=== PATIENT | female | born 1950 | race Caucasian/White ===

== ENCOUNTER → 2016-12-17 | Outpatient (CLI) | payer OTHER ==
[2016-12-17 17:40] LABS: MEAN CORPUSCULAR HEMOGLOBIN 27.4 pg (27.0-33.0); MEAN CORPUSCULAR VOLUME 85.7 fl (80.0-96.0); RED CELL DISTRIBUTION WIDTH 16.1 % (11.5-14.5); WHITE BLOOD COUNT 5.9 K/mm3 (4.0-10.0)
[2016-12-17 17:41] LABS: INR 1.13
[2016-12-17 18:16] LABS: ALBUMIN 3.3 GM/DL (3.2-5.2); ALBUMIN/GLOBULIN RATIO 1.14 (1.00-1.93); ALKALINE PHOSPHATASE 117 U/L (45-117); ALT/SGPT 46 U/L (12-78); ANION GAP 7 MEQ/L (8-16); AST/SGOT 59 U/L (15-37); BILIRUBIN,TOTAL 0.5 MG/DL (0.2-1.0); BLOOD UREA NITROGEN 26 MG/DL (7-18); CALCIUM LEVEL 8.9 MG/DL (8.8-10.2); CARBON DIOXIDE LEVEL 29 MEQ/L (21-32); CHLORIDE LEVEL 108 MEQ/L (98-107); CREATININE FOR GFR 0.72 MG/DL (0.55-1.02); GLOMERULAR FILTRATION RATE > 60.0 (>45); GLUCOSE, FASTING 100 MG/DL (80-110); MAGNESIUM LEVEL 1.8 MG/DL (1.8-2.4); PERCENT SATURATION 20.6 % (13.2-37.4); POTASSIUM SERUM 4.4 MEQ/L (3.5-5.1); SODIUM LEVEL 144 MEQ/L (136-145); TOTAL IRON BINDING CAPACITY 423 UG/DL (250-450); TOTAL PROTEIN 6.2 GM/DL (6.4-8.2)
[2016-12-17 18:24] LABS: VITAMIN B12 LEVEL 702 PG/ML (247-911)
== END | disposition home or self-care (01) ==
LOC: M LAB 16:37
PROVIDERS: ATTEND Internal Medicine Gastroenterology
DX: K74.60 Unspecified cirrhosis of liver (principal); R19.7 Diarrhea, unspecified; K21.9 Gastro-esophageal reflux disease without esophagitis

== ENCOUNTER → 2017-04-15 | Outpatient (REF) | payer MEDICARE ==
[2017-04-15 13:56] LABS: INR 1.06
[2017-04-15 18:05] LABS: PERCENT SATURATION 13.5 % (13.2-37.4)
== END ==
LOC: M LAB REF 12:22
PROVIDERS: ATTEND Internal Medicine
DX: D64.9 Anemia, unspecified (principal); K74.60 Unspecified cirrhosis of liver; K75.81 Nonalcoholic steatohepatitis (NASH)

== ENCOUNTER 2017-08-06 16:19 | Inpatient (IN) | payer MEDICARE ==
[~2017-08-06] VITALS: Ht 162.6 cm; Wt 102.5 kg
[2017-08-06] VITALS (15 sets, daily range): BP systolic 123–183; BP diastolic 58–88
[2017-08-06] MEDS ORDERED: LOSA100T36 PO (16:44)
[2017-08-06] MEDS ORDERED: OMEP40CA2 (16:44)
[2017-08-06] MEDS ORDERED: NADO20TA PO (16:44)
[2017-08-06] MEDS ORDERED: ONDANSETRON 4MG/2ML VIAL (J2405) IV ONE (18:00)
[2017-08-06] MEDS ORDERED: MORPHINE 2 MG/ML 1ML SYRINGE IV ONE (18:00)
[2017-08-06 19:22] LABS: BASO % 0.1 % (0.0-1.0); EOS % 0.4 % (0.0-3.0); LARGE UNSTAINED CELL # 0.1 K/mm3 (0.0-0.4); LYMPH # 0.6 K/mm3 (1.5-4.5); LYMPH % 7.8 % (24.0-44.0); MEAN CORPUSCULAR HEMOGLOBIN 26.4 pg (27.0-33.0); MEAN CORPUSCULAR HGB CONC 32.6 g/dl (32.0-36.5); MONO # 0.5 K/mm3 (0.0-0.8); MONO % 6.3 % (0.0-5.0); NEUTROPHILS # 6.7 K/mm3 (1.8-7.7); NEUTROPHILS % 84.4 % (36.0-66.0); WHITE BLOOD COUNT 7.9 K/mm3 (4.0-10.0)
[2017-08-06 19:27] LABS: ANION GAP 6 MEQ/L (8-16); BLOOD UREA NITROGEN 15 MG/DL (7-18); CALCIUM LEVEL 7.3 MG/DL (8.8-10.2); CARBON DIOXIDE LEVEL 31 MEQ/L (21-32); CHLORIDE LEVEL 105 MEQ/L (98-107); GLOMERULAR FILTRATION RATE > 60.0 (>45); GLUCOSE, FASTING 115 MG/DL (80-110); POTASSIUM SERUM 3.7 MEQ/L (3.5-5.1); SODIUM LEVEL 142 MEQ/L (136-145)
[2017-08-06 19:33] LABS: PLATELET COUNT, AUTOMATED 62 k/mm3 (150-450)
[2017-08-06] MEDS ORDERED: ISOVUE-370 76% 100ML VIAL (Q9967) As Ordered ONE (19:35)
--- NOTE | 2017-08-06 20:30 | REPUSA ---
CT angiogram of the chest Clinical statement: Chest pain and shortness of breath. Technique: Multiple axial CT images were obtained from the thoracic inlet through the upper abdomen a fter a bolus administration of nonionic intravenous contrast. Coronal and sagittal reconstructions we re also obtained. No comparison is available. Findings: The pulmonary arteries are well-opacified with contrast, with no intraluminal filling defec ts to suggest embolism. The thoracic aorta is unremarkable. Thyroid gland is within normal limits. Th ere is no thoracic lymphadenopathy. There is a moderate sized right lower lobe pleural effusion, with adjacent compressive atelectasis. There is also a linear infiltrate in the right upper lobe. Limited imaging of the upper abdomen demonstrates several gallstones within a distended gallbladder. No gavino cholecystic inflammatory changes are seen. There are no suspicious osseous lesions. Impression: 1. No evidence of pulmonary embolism. 2. Moderate sized right lower lobe pleural effusion with adjacent compressive atelectasis of the righ t lower lung. Linear infiltrate is seen in the right upper lung as well. 3. Cholelithiasis without evidence of acute cholecystitis.
[2017-08-06] MEDS ORDERED: cefTRIAXone SOD 1 GM in D5W MINI-BAG PLUS 50 ML IV ONE (21:00)
[2017-08-06] MEDS ORDERED: BISACODYL 10 MG SUPP PR PRN (21:00)
[2017-08-06] MEDS ORDERED: NORCO, ANEXSIA 5/325MG TABLET (HYDROcodone/ACETAMINOPHEN) PO PRN (21:00)
[2017-08-06] MEDS ORDERED: PERCOCET 5MG/325MG TAB PO PRN (21:00)
[2017-08-06] MEDS: DOCUSATE SODIUM 100 MG CAP PO SCH (21:00)
[2017-08-06] MEDS ORDERED: KCL 20MEQ IN D5/NS 1000ML 1,000 ML IV SCH (21:00)
[2017-08-06] MEDS ORDERED: ACETAMINOPHEN TAB 650MG DOSE (2X325MG) PO PRN (21:00)
[2017-08-06] MEDS: HEPARIN SOD (PORCINE) 5000 UNITS/ML VIAL SC SCH (21:00)
[2017-08-06] MEDS ORDERED: LEVALBUTEROL 1.25 MG/0.5 ML CONCENTRATE NEB NEB PRN (21:00)
[2017-08-06 21:21] LABS: INR 1.44
[2017-08-06] MEDS ORDERED: VITA500T PO (21:26)
[2017-08-06] MEDS ORDERED: FISH1000 PO (21:26)
[2017-08-06] MEDS ORDERED: VITA100087 PO (21:26)
[2017-08-06] MEDS ORDERED: VITA200015 PO (21:26)
[2017-08-06] MEDS ORDERED: NATU400T PO (21:26)
[2017-08-06] MEDS ORDERED: CINN500C9 PO (21:26)
[2017-08-06] MEDS ORDERED: MIDAZOLAM INJ 2 MG/2 ML VIAL (J2250) As Ordered ONE ×4 (21:31→23:19)
[2017-08-06] MEDS ORDERED: FLUMAZENIL 0.5 MG/5 ML VIAL As Ordered ONE (21:33)
[2017-08-06] MEDS ORDERED: LIDOCAINE 1% MDV 20ML VIAL As Ordered ONE ×3 (21:34→23:18)
[2017-08-06 22:17] LABS: ABG BASE EXCESS 0.1 (-2.0-2.0); ABG HCO3 24.7 MEQ/L (22.0-26.0); ABG PARTIAL PRESSURE CO2 39.8 mmHg (35.0-45.0); ABG PARTIAL PRESSURE O2 76.9 mmHg (75.0-100.0); ABG STANDARD HCO3 24.5 MEQ/L (22.0-26.0); ABG TOTAL CO2 25.9 MEQ/L (23.0-31.0)
[2017-08-06] MEDS ORDERED: KETOROLAC 30 MG/ML VIAL (J1885) As Ordered ONE (22:47)
[2017-08-06] MEDS ORDERED: D5W/0.9% SODIUM CHLORIDE 1,000 ML IV SCH (23:30)
--- NOTE | 2017-08-06 23:40 | REPUSA ---
CT of the chest without contrast Clinical statement: status post tube insertion. Technique: Multiple axial CT images were obtained with 5 mm cuts through the chest without administra tion of contrast. No comparison is available. Findings: There is no thoracic lymphadenopathy. The visualized portions of the thyroid gland is unrem arkable. The chest tube on the right is in place within the right lower lung. There is a large right- sided pleural effusion with extensive compressive atelectasis of the lower right lung. Infiltrates ar e seen in the right upper lung, likely representing atelectasis. The left lung is clear. Limited imag ing of the upper abdomen demonstrates numerous gallstones within the gallbladder. Mesenteric infiltra tive changes are seen in the central abdomen. The liver and spleen are enlarged. There are no suspici ous osseous lesions. Impression: 1. Right-sided chest tube is in place at the right lung base. 2. Large right-sided pleural effusion. Severe compressive atelectasis of much of the right lower lung . Linear infiltrate in the right upper lung also noted, likely also representing atelectasis. 3. Left lung is clear. 4. Cholelithiasis. 5. Mesenteric infiltrative changes within the central abdomen, which could represent adenopathy or in flammation. Clinical correlation is recommended.
[2017-08-07] VITALS (14 sets, daily range): BP systolic 99–134; BP diastolic 51–87
[2017-08-07 00:57] LABS: LDH, BODY FLUID 222 U/L (NOT ESTABLISHED)
[2017-08-07 00:59] LABS: TOTAL PROTEIN, BODY FLUID 1.8 G/DL (NOT ESTABLISHED)
[2017-08-07] MEDS ORDERED: LIDOCAINE 1% MDV 20ML VIAL SC ONE (01:00)
[2017-08-07] MEDS ORDERED: MIDAZOLAM INJ 2 MG/2 ML VIAL (J2250) IV ONE ×4 (01:00→01:20)
[2017-08-07] MEDS: AZITHROMYCIN INJ 500 MG, VIAL MATE ADAPTER 1 EACH in D5W 250 ML IV SCH ×2 (01:14→21:36)
[2017-08-07] MEDS ORDERED: KETOROLAC 30 MG/ML VIAL (J1885) IV ONE (01:15)
[2017-08-07 01:21] LABS: RBC PLEURAL FLUID 79 (<10mm3 cells/uL)
[2017-08-07 01:38] LABS: ALBUMIN 2.5 GM/DL (3.2-5.2); ALKALINE PHOSPHATASE 68 U/L (45-117); ALT/SGPT 26 U/L (12-78); ANION GAP 9 MEQ/L (8-16); AST/SGOT 32 U/L (15-37); BILIRUBIN,TOTAL 1.4 MG/DL (0.2-1.0); BLOOD UREA NITROGEN 18 MG/DL (7-18); CALCIUM LEVEL 7.2 MG/DL (8.8-10.2); CARBON DIOXIDE LEVEL 27 MEQ/L (21-32); CHLORIDE LEVEL 105 MEQ/L (98-107); CHOLESTEROL LEVEL 100 MG/DL (< 200); CREATININE FOR GFR 0.95 MG/DL (0.55-1.02); GLOMERULAR FILTRATION RATE > 60.0 (>45); GLUCOSE, FASTING 203 MG/DL (80-110); PHOSPHORUS LEVEL 3.4 MG/DL (2.5-4.9); POTASSIUM SERUM 3.4 MEQ/L (3.5-5.1); SODIUM LEVEL 141 MEQ/L (136-145); TRIGLYCERIDES LEVEL 65 MG/DL (<150)
[2017-08-07 01:48] LABS: BF DIFF IF INDICATED? YES (NO); TNC PLEURAL FLUID 47509 cells/uL (0-20)
[2017-08-07 01:54] LABS: CC BF DIFF EXAM UNSPUN
[2017-08-07] MEDS ORDERED: NS 1,000 ML IV SCH (02:45)
[2017-08-07] MEDS ORDERED: KCL 10MEQ IN 100ML SWI (KRUN) 10 MEQ in APPROPRIATE DILUENT 1 EA IV ONE ×2 (03:00)
[2017-08-07 03:20] LABS: MEAN CORPUSCULAR HEMOGLOBIN 26.7 pg (27.0-33.0); MEAN CORPUSCULAR HGB CONC 33.1 g/dl (32.0-36.5); MEAN CORPUSCULAR VOLUME 80.8 fl (80.0-96.0); RED CELL DISTRIBUTION WIDTH 15.9 % (11.5-14.5); WHITE BLOOD COUNT 9.2 K/mm3 (4.0-10.0)
[2017-08-07] MEDS: PERCOCET 5MG/325MG TAB PO PRN (03:31)
[2017-08-07 05:38] LABS: BASO % 0.1 % (0.0-1.0); EOS % 0.1 % (0.0-3.0); LARGE UNSTAINED CELL # 0.2 K/mm3 (0.0-0.4); LARGE UNSTAINED CELL % 1.6 % (0.0-4.0); LYMPH # 0.5 K/mm3 (1.5-4.5); LYMPH % 4.8 % (24.0-44.0); MEAN CORPUSCULAR HEMOGLOBIN 25.9 pg (27.0-33.0); MEAN CORPUSCULAR HGB CONC 32.2 g/dl (32.0-36.5); MEAN CORPUSCULAR VOLUME 80.6 fl (80.0-96.0); MONO # 0.6 K/mm3 (0.0-0.8); MONO % 5.9 % (0.0-5.0); NEUTROPHILS # 9.1 K/mm3 (1.8-7.7); NEUTROPHILS % 87.6 % (36.0-66.0); RED CELL DISTRIBUTION WIDTH 15.9 % (11.5-14.5); WHITE BLOOD COUNT 10.4 K/mm3 (4.0-10.0)
[2017-08-07 05:44] LABS: PLATELET COUNT, AUTOMATED 53 k/mm3 (150-450)
[2017-08-07 05:56] LABS: ANION GAP 8 MEQ/L (8-16); BLOOD UREA NITROGEN 21 MG/DL (7-18); CALCIUM LEVEL 7.2 MG/DL (8.8-10.2); CARBON DIOXIDE LEVEL 28 MEQ/L (21-32); CHLORIDE LEVEL 107 MEQ/L (98-107); CREATININE FOR GFR 0.91 MG/DL (0.55-1.02); GLOMERULAR FILTRATION RATE > 60.0 (>45); GLUCOSE, FASTING 127 MG/DL (80-110); POTASSIUM SERUM 3.6 MEQ/L (3.5-5.1); SODIUM LEVEL 143 MEQ/L (136-145)
[2017-08-07] MEDS: KETOROLAC 30 MG/ML VIAL (J1885) IV SCH ×3 (05:57→17:12)
[2017-08-07 06:20] LABS: ABG BASE EXCESS 1.7 (-2.0-2.0); ABG HCO3 26.8 MEQ/L (22.0-26.0); ABG PARTIAL PRESSURE CO2 44.4 mmHg (35.0-45.0); ABG PARTIAL PRESSURE O2 98.4 mmHg (75.0-100.0); ABG TOTAL CO2 28.2 MEQ/L (23.0-31.0); ABG pH (ARTERIAL) 7.399 UNITS (7.350-7.450)
[2017-08-07] MEDS: LEVALBUTEROL 1.25 MG/0.5 ML CONCENTRATE NEB NEB SCH ×2 (07:19→14:01)
[2017-08-07] MEDS: PANTOPRAZOLE 40MG TAB (PROTONIX) PO SCH (08:23)
[2017-08-07] MEDS: DOCUSATE SODIUM 100 MG CAP PO SCH ×2 (08:23→21:37)
[2017-08-07] MEDS: VITAMIN A 10,000 INTERNATIONAL UNITS CAP PO SCH (08:23)
[2017-08-07] MEDS: VITAMIN E 400 INTERNATIONAL UNITS CAP PO SCH (08:23)
[2017-08-07] MEDS: LOSARTAN 50 MG TAB PO SCH (08:24)
[2017-08-07] MEDS: VITAMIN D 1,000 INTERNATIONAL UNITS TABLET PO SCH (08:24)
[2017-08-07] MEDS: ASCORBIC ACID 500 MG TAB PO SCH (08:25)
[2017-08-07] MEDS: MOM 30ML SUSPENSION UDC PO SCH (08:25)
[2017-08-07] MEDS: HEPARIN SOD (PORCINE) 5000 UNITS/ML VIAL SC SCH (08:25)
[2017-08-07] MEDS: NADOLOL 20MG TABLET PO SCH ×2 (08:25→21:37)
--- NOTE | 2017-08-07 09:24 | CR ---
DATE OF CONSULTATION: 08/06/2017 REASON FOR CONSULTATION: The patient is seen at the request of Dr. Lenny Houser for a pleural effusion and right-sided chest pain. HISTORY OF PRESENT ILLNESS: The patient is a 67-year-old white female who at 2:00 this morning suddenly awoke with sharp right-sided chest pain laterally and inferiorly. She describes it as a grabbing pulling pain every time she takes a breath. It hurts for her to take a deep breath. There has been no cough and no sputum production. There has been no fever, chills, or sweats and no night sweats. She has maintained her weight all along. There is no dysphagia. She does not choke with eating or with drinking. The chest pain is quite severe and she is taking shallow rapid breaths in order to ventilate. The chest pain has gotten increasingly worse over the course of the day in her sojourn in the emergency room. I am not sure whether she is intrinsically short of breath or just short of breath secondary to pain. I think it is the latter. She was seen at Urgent Care earlier today and was sent over to the emergency room when an x-ray was taken, which showed her to have an opacity in the right chest. Upon further history taking from her daughters, she evidently fell last June injuring her ribs. Therefore, a rib series was obtained in the ER. PAST MEDICAL HISTORY: Hypertension. Gastroesophageal reflux disease. Diarrhea being treated by Dr. Bonny Candelario in [place]. Denies diabetes are heart disease. Does not have a primary care physician. PAST SURGICAL HISTORY: Repair of quadriceps ruptures in 1999. ALLERGIES: ASPIRIN. MEDICATIONS AT HOME: - losartan 100 mg every day - nadolol 20 mg twice a day - fish oil 1000 mg capsules every day - vitamin A 10,000 units every day - ascorbic acid 500 mg every day - vitamin D 2000 units every day TRAVEL HISTORY: Has been to [place] once approximately 4 years ago. No travel to the [facility] and no foreign travel. EXPOSURES: No exposure to tuberculosis. No birds or cats. She has two dogs. OCCUPATIONAL HISTORY: bulk delivery driver. No asbestos exposure. HABITS: Does not smoke, does not drink and there are no illicit drugs. REVIEW OF SYSTEMS: Constitutional: See HPI. Eyes: Without diplopia, without amaurosis fugax, without prior jaundice. Nose: Without epistaxis. Mouth: Has upper dentures. Respiratory: See HPI. Cardiac: See HPI. Without orthopnea or paroxysmal nocturnal dyspnea, except last night. Denies leg swelling. Has had no prior myocardial infarctions and no tachycardias or palpitations. Gastrointestinal (GI): Without nausea, vomiting, constipation. Does have diarrhea which is now under control being treated by Dr. Bonny Candelario. Without hematemesis, melena, hematochezia or abdominal pain. Genitourinary (): Without dysuria, hematuria or history of renal stones. Lymphatics: Without lumps, bumps in neck, axilla or groin. Hematologic: Without prolonged bleeding times. Neurologic: Without paresthesias, paralysis or prior seizures. Psychiatric: Without pathologic depression, psychoses or anxieties. PHYSICAL EXAMINATION: General: Well-developed obese white female in acute distress from pain and short of breath. Vital signs: Temperature is 99.6 with a pulse of 88 in a sinus rhythm. Respiratory rate of 22, with shallow breaths. Blood pressure is 131/79 and she is 96% saturated on 2 liters nasal cannula. Eyes: Pupils equal, round and reactive to light. Extraocular muscles intact. Sclera anicteric. Nose: Without deformity. Mouth: Shows her mucous membranes to be pink and moist. Lips and commissures are without lesions. There is no thrush. Her upper dentures are in place. Head: Normocephalic. Neck is supple. There is no jugular venous distention, no subcutaneous emphysema. Trachea is midline. No carotid bruits. She has 2+ carotid upstrokes. There is no thyromegaly. No lymphadenopathy. Lungs: Show decreased breath sounds on the right side with E to A egophony. Percussion note is dull at the base of the right chest, although it is difficult to resonate secondary to obesity. Cardiac examination: Without murmurs, clicks, gallops or rubs. I cannot feel her point of maximal impulse (PMI), S1 and S2 are normal. Abdomen: Soft and nontender. Bowel sounds are positive. There is no hepatomegaly. There is no costovertebral angle (CVA) tenderness. Extremities: Show no pretibial edema, no calf tenderness. No differential swelling of the upper extremities. She does have a dark pigmentation on both legs which I thought was secondary to venous stasis disease, but she says she has had cellulitis in the past. Skin: Warm, dry and perfused without cyanosis or mottling including that of the nail beds and the knees. Neurologic exam: Shows II through XII intact. Gross motor and gross sensation intact. Gait is not tested. Psychiatric: Shows her to be awake, alert and oriented times three, with appropriate mood, affect, and conversational. Her white count in the emergency room was 7.9 with a hemoglobin and hematocrit of 11.2 and 34.2, and a platelet count of 62. Differential shows 84% neutrophils, 7% lymphocytes, 6% monocytes. No immature forms, no toxic granulations. Her electrolytes show a sodium of 142, a potassium of 3.7, BUN and creatinine of 15 and 0.70. Calcium is 7.3 with a glucose of 115. In December her albumin was 3.3. She knows she has been thrombocytopenic since 2013. Her chest x-ray today shows an opacity on the right side with a diffuse haze consistent with a pleural effusion. Chest CT shows a large pleural effusion. It is notable that the portable chest x-ray done later this evening and compared with her rib films shows a dramatic increase in her pleural fluid. Chest CT shows compression of the right lower lobe. There is no pulmonary embolism. The CT was done with angiographic protocol. It looks as though the lung is more consolidated then compressed on the CT, although there is a sliver of compression in the right lower lobe. I do not see any other masses on this CT. Adrenals have a normal configuration and she has gallstones in her gallbladder. The gallstones are in the neck of the gallbladder. IMPRESSION: 1. Pleural effusion, probably empyema. 2. Probably community acquired pneumonia. 3. Thrombocytopenia, chronic. 4. Hypertension. 5. Diarrhea, controlled. 6. Hypoalbuminemia. 7. Morbid obesity. PLAN AND DISCUSSION: The first order of treating her will be to relieve her most likely empyema. I will place a chest tube. She is being admitted to the hospitalist service, but I will start her on antibiotics consistent with community acquired pneumonia. She is not making any sputum so we cannot send a sputum culture, but we will certainly culture the pleural fluid. Her thrombocytopenia is chronic. I will check a lactic acid although she does not look septic. It should be noted that her ABG done this evening showed a pH of 7.41, pCO2 of 39, and a pO2 of 76 on 2 liters nasal cannula with a base excess of 0.1. She is not acidotic. It is unclear why she got this pneumonia. She has not been around anybody with a upper respiratory infection (URI). We will follow her chest x-rays every day and I may obtain another CT scan after the fluid is drained. Will send the fluid for the requisite bacteriologies, cytologies, chemistries, and cell counts. I will do a hemoglobin A1c as she is probably high risk for diabetes.
--- NOTE | 2017-08-07 09:38 | HPEPDOC ---
General Date of Admission Aug 06, 2017 at 21:00 Primary Care Physician: MADELIN KILPATRICK DO Chief Complaint The patient is a 67-year-old female admitted with a reason for visit of Pleural Effusion. Source: Patient, Family Exam Limitations: No limitations Timing/Duration: 1-3 hours Severity: Severe Associated Symptoms: Chest Pain, Shortness of breath History of Present Illness 67 yo female from [place] presents for several hour history of severe shortness of breath. Patient also admits to severe orthopnea, with 4/10 right sided chest pain. Patient notes she had a mechanical fall, tripping over her dog, early in June. She denied any head trauma, but fell onto her right side, stating she had 'the wind knocked out of me'. Denies any other medical complaints. Denies any past medical history, she follows with her PCP twice a year. Home Medications Scheduled Alpha Tocopheryl Acid Succinat (Vitamin E) 400 Unit Tab, 400 UNIT PO DAILY, ( Reported) Ascorbic Acid (Vitamin C) 500 Mg Tab, 500 MG PO DAILY, (Reported) Cholecalciferol (Vitamin D) 2,000 Unit Tab, 2,000 UNIT PO DAILY, (Reported) Cinnamon Bark (Cinnamon) 500 Mg Cap, 500 MG PO DAILY, (Reported) Fish Oil (Fish Oil) 1,000 Mg Cap, 1,000 MG PO DAILY, (Reported) Losartan Potassium (Losartan Potassium) 100 Mg Tab, 100 MG PO DAILY, (Reported) Nadolol (Nadolol) 20 Mg Tab, 20 MG PO BID, (Reported) Vitamin A (Vitamin A) 10,000 Unit Tab, 10,000 UNIT PO DAILY, (Reported) Allergies Coded Allergies: Aspirin (Verified Allergy, Unknown, 08/07/17) PT TOLERATES TORADOL. Past Medical History Medical History Patient denies any medical history. By medical records, appears she does have hypertension. States she was prescribed omeprazole, but denies any symptoms of GERD. Social History * Smoker: Denies Alcohol: Denies Drugs: denies Recent Travel/Sick Contacts: Denies: Recent travel, Recent sick contacts Review of Symptoms Constitutional: Denies: Chills, Fever, Malaise, Night Sweats, Weakness, Fatigue , Weight Loss, Lethargy, Other Eyes: Denies: Pain, Vision change, Conjunctivae inflammation, Eyelid inflammation, Redness, Other ENT: Denies: Head Aches, Ear Pain, Dysphagia, Sinus Congestion, Post Nasal Drip , Sore Throat, Epistaxis, Other Symptoms Skin: Denies: Rash, Lesions, Jaundice, Bruising, Itching, Dry, Breakdown, Nail Changes, Other Pulmonary: Reports: Dyspnea, Cough Cardiovascular: Reports: Chest Pain (right sided chest pain) Gastrointestinal: Denies: Nausea, Vomiting, Abdominal Pain, Diarrhea, Constipation, Melena, Hematochezia, Other Symptoms Genitourinary: Denies: Dysuria, Frequency, Incontinence, Hematuria, Retention, Other Symptoms Hematologic: Denies: Bruising, Bleeding Excessively, Petecchia, Purpura, Enlarged Lymph Nodes, Other Hematologic Endocrine: Denies: Polydipsia, Polyphagia, Polyuria, Heat Intolerance, Cold Intolerance, Other Endocrine Sx Neurological: Denies: Weakness, Numbness, Incoordination, Change in speech, Confusion, Seizures, Other Symptoms Physical Examination General Exam: Positive: Alert, Cooperative, No Acute Distress Eye Exam: Positive: PERRLA, Conjunctiva & lids normal, EOMI, Negative: Sclera icteric ENT Exam: Positive: Atraumatic Neck Exam: Positive: Supple Chest Exam: Positive: Diminished (Significantly diminished right breath sounds. ), Other (right sided chest tube in place, draining serosanguinous fluid) Heart Exam: Positive: Rate Normal, Regular Rhythm, Normal S1, Normal S2 Telemetry: Positive: No significant arrhythmia Abdomen Exam: Positive: Normal bowel sounds, Soft, Other (obese), Negative: Tenderness Neuro Exam: Positive: Normal Speech Psych Exam: Positive: Mental status NL, Oriented x 3, Negative: Anxiety Vital Signs Vital Signs Date Time Temp Pulse Resp B/P (MAP) Pulse Ox O2 Delivery O2 Flow Rate FiO2 08/07/17 08:25 72 08/07/17 08:24 125/68 08/07/17 08:00 97.6 17 96 Nasal Cannula 2.0 Laboratory Data Labs 24H Laboratory Tests 2 08/06/17 18:45: White Blood Count 7.9, Red Blood Count 4.22, Hemoglobin 11.2L, Hematocrit 34.2L , Mean Corpuscular Volume 81.0, Mean Corpuscular Hemoglobin 26.4L, Mean Corpuscular Hemoglobin Concent 32.6, Red Cell Distribution Width 16.0H, Platelet Count 62L, Neutrophils (%) (Auto) 84.4H, Lymphocytes (%) (Auto) 7.8L, Monocytes (%) (Auto) 6.3H, Eosinophils (%) (Auto) 0.4, Basophils (%) (Auto) 0.1 , Neutrophils # (Auto) 6.7, Lymphocytes # (Auto) 0.6L, Monocytes # (Auto) 0.5, Eosinophils # (Auto) 0.0, Basophils # (Auto) 0.0, Large Unclassified Cells % 1.0 , Large Unclassified Cells # 0.1, Prothrombin Time 17.9H, Prothromb Time International Ratio 1.44, Activated Partial Thromboplast Time 32.7, Anion Gap 6L , Glomerular Filtration Rate > 60.0, Blood Urea Nitrogen 15, Creatinine 0.70, Sodium Level 142, Potassium Level 3.7, Chloride Level 105, Carbon Dioxide Level 31, Calcium Level 7.3L, Lactate Dehydrogenase 197 08/06/17 22:10: Blood Gas Bicarbonate Standard 24.5, Arterial Blood pH 7.410, Arterial Blood Partial Pressure CO2 39.8, Arterial Blood Partial Pressure O2 76.9, Arterial Blood Total CO2 25.9, Arterial Blood HCO3 24.7, Arterial Blood Base Excess 0.1, Arterial Blood Oxygen Saturation 95.4 08/06/17 23:49: Body Fluid pH 7.486, Body Fluid pH Source PLEURAL, Body Fluid Neutrophils 95, Body Fluid Lymphocytes 4, Body Fluid Monocytes/Macrophages 1, Body Fluid Glucose Source PLEURAL, Body Fluid Glucose 131, Body Fluid Protein Source PLEURAL, Body Fluid Total Protein 1.8, Body Fluid Albumin Source PLEURAL, Body Fluid Albumin 1.1, Body Fluid LDH Source PLEURAL, Body Fluid Lactate Dehydrogenase 222, Body Fluid Amylase Source PLEURAL, Body Fluid Amylase 41, Body Fluid Cholesterol < 50, Body Fluid Cholesterol Source PLEURAL, Body Fluid Triglyceride Source PLEURAL, Body Fluid Triglycerides 14, Pleural Fluid Source PLEURAL, Pleural Fluid Color RED, Pleural Fluid Appearance CLOUDY, Pleural Fluid RBC (Auto) 79, Pleural Fluid Total Nucleated Cells [id number] 08/07/17 00:45: Anion Gap 9, Glomerular Filtration Rate > 60.0, Blood Urea Nitrogen 18, Creatinine 0.95, Sodium Level 141, Potassium Level 3.4L, Chloride Level 105, Carbon Dioxide Level 27, Calcium Level 7.2L, Lactate Dehydrogenase 175, Estimated Mean Plasma Glucose 94, Hemoglobin A1c 4.9, Lactic Acid Level 2.8*H, Phosphorus Level 3.4, Aspartate Amino Transf (AST/SGOT) 32, Alanine Aminotransferase (ALT/SGPT) 26, Total Creatine Kinase 56, Alkaline Phosphatase 68, Total Bilirubin 1.4H, Triglycerides Level 65, Cholesterol Level 100, Total Protein 5.0L, Albumin 2.5L, Albumin/Globulin Ratio 1.00 08/07/17 05:14: White Blood Count 10.4H, Red Blood Count 3.56L, Hemoglobin 9.2L, Hematocrit 28.7L, Mean Corpuscular Volume 80.6, Mean Corpuscular Hemoglobin 25.9L, Mean Corpuscular Hemoglobin Concent 32.2, Red Cell Distribution Width 15.9H, Platelet Count 53L, Neutrophils (%) (Auto) 87.6H, Lymphocytes (%) (Auto) 4.8L, Monocytes (%) (Auto) 5.9H, Eosinophils (%) (Auto) 0.1, Basophils (%) (Auto) 0.1 , Neutrophils # (Auto) 9.1H, Lymphocytes # (Auto) 0.5L, Monocytes # (Auto) 0.6, Eosinophils # (Auto) 0.0, Basophils # (Auto) 0.0, Large Unclassified Cells % 1.6 , Large Unclassified Cells # 0.2, Anion Gap 8, Glomerular Filtration Rate > 60.0 , Lactic Acid Followup at 4 Hours 1.6, Blood Urea Nitrogen 21H, Creatinine 0.91 , Sodium Level 143, Potassium Level 3.6, Chloride Level 107, Carbon Dioxide Level 28, Calcium Level 7.2L 08/07/17 06:10: Blood Gas Bicarbonate Standard 26.0, Arterial Blood pH 7.399, Arterial Blood Partial Pressure CO2 44.4, Arterial Blood Partial Pressure O2 98.4, Arterial Blood Total CO2 28.2, Arterial Blood HCO3 26.8H, Arterial Blood Base Excess 1.7 , Arterial Blood Oxygen Saturation 97.5 CBC/BMP Laboratory Tests 08/06/17 18:45 Red Blood Count 4.22, Mean Corpuscular Volume 81.0, Mean Corpuscular Hemoglobin 26.4 L, Mean Corpuscular Hemoglobin Concent 32.6, Red Cell Distribution Width 16.0 H, Neutrophils (%) (Auto) 84.4 H, Lymphocytes (%) (Auto) 7.8 L, Monocytes ( %) (Auto) 6.3 H, Eosinophils (%) (Auto) 0.4, Basophils (%) (Auto) 0.1, Neutrophils # (Auto) 6.7, Lymphocytes # (Auto) 0.6 L, Monocytes # (Auto) 0.5, Eosinophils # (Auto) 0.0, Basophils # (Auto) 0.0, Calcium Level 7.3 L 08/07/17 00:45 Calcium Level 7.2 L, Phosphorus Level 3.4, Aspartate Amino Transf (AST/SGOT) 32 , Alanine Aminotransferase (ALT/SGPT) 26, Lactate Dehydrogenase 175, Total Creatine Kinase 56, Alkaline Phosphatase 68, Total Bilirubin 1.4 H, Triglycerides Level 65, Cholesterol Level 100, Total Protein 5.0 L, Albumin 2.5 L 08/07/17 03:00 Red Blood Count 3.46 L, Mean Corpuscular Volume 80.8, Mean Corpuscular Hemoglobin 26.7 L, Mean Corpuscular Hemoglobin Concent 33.1, Red Cell Distribution Width 15.9 H 08/07/17 05:14 Red Blood Count 3.56 L, Mean Corpuscular Volume 80.6, Mean Corpuscular Hemoglobin 25.9 L, Mean Corpuscular Hemoglobin Concent 32.2, Red Cell Distribution Width 15.9 H, Neutrophils (%) (Auto) 87.6 H, Lymphocytes (%) (Auto ) 4.8 L, Monocytes (%) (Auto) 5.9 H, Eosinophils (%) (Auto) 0.1, Basophils (%) ( Auto) 0.1, Neutrophils # (Auto) 9.1 H, Lymphocytes # (Auto) 0.5 L, Monocytes # ( Auto) 0.6, Eosinophils # (Auto) 0.0, Basophils # (Auto) 0.0, Calcium Level 7.2 L Microbiology Microbiology 08/06/17 Acid Fast Stain, Received Pending 08/06/17 Mycobacterial Culture, Received Pending 08/06/17 Fungal Smear, Received Pending 08/06/17 Fungal Culture, Received Pending 08/06/17 Gram Stain - Final, Resulted 08/06/17 Anaerobic Culture, Resulted Pending 08/06/17 Body Fluid Culture, Received Pending Problems (1) Pleural effusion Status: Acute Response to Treatment: Improving Discussed With: Commodities Trader, Patient Problem Specific Plan: Consult Specialist, Monitor Clinically Problem Text: Appears to be secondary to pneumonia possibly complicated with her recent trauma. Chest tube in place. Pleural fluid analysis appears to be transudative, with high total nucleated cells. Cultures pending. Patient's symptoms of SOB significantly improved. Continue to follow as CTS, assistance greatly appreciated. Incentive spirometry at bedside. (2) Thrombocytopenia Status: Acute Response to Treatment: Progressing Discussed With: Patient Problem Specific Plan: Monitor Clinically, Repeat Labs, Repeat Tests Problem Text: Unclear etiology, patient unaware if this is chronic issue. Reviewing records, appears this is a chronic issue. Peripheral smear pending. Avoid heparin products. Discuss further with CTS regarding utility of platelet transfusion given hemothorax/pleural effusion. (3) Pneumonia Status: Acute Response to Treatment: Improving Discussed With: Commodities Trader, Patient Problem Specific Plan: Monitor Clinically, Repeat Labs Problem Text: Continue with cef/azithro for CAP. Pleural fluid cultures pending. MRSA screen. Incentive spirometry. (4) HTN (hypertension) Status: Chronic Response to Treatment: Stable Problem Specific Plan: Monitor Clinically Plan / VTE VTE Prophylaxis Ordered?: Yes (mechanical) Plan Plan Continue IV antibiotics for CAP. Pleural fluid cultures pending. Continue chest tube, follow as per CTS, assistance appreciated. Some mesenteric infiltrative changes noted on central abdomen from CT chest, will pursue further imaging as patient improves. IVF: Continue Diet: Continue Current Activity: Continue Current Diagnostics: Repeat Labs in AM Anticipated Discharge: Home CHRISTEN ALDRIDGE MD Aug 07, 2017 09:38
[2017-08-07 09:48] LABS: REASON FOR REVIEW PLATELET MORPHOLOGY
--- NOTE | 2017-08-07 11:29 | REP ---
CHEST, SINGLE VIEW: Single AP view of the chest is performed. There is a large right pleural effusion with associated right lung atelectasis/infiltrate. The left lung is clear. Cardiac silhouette is prominent. There is right chest tube overlying the right hemidiaphragm. Signed by Larry Moyer MD 08/07/2017 07:31 P
--- NOTE | 2017-08-07 11:41 | REP ---
PORTABLE CHEST: AP portable view of the chest is performed and compared to prior study of the same day. There is placement of a chest tube which overlies the right hemithorax. The previously noted chest tube is no longer visualized. Right pleural effusion has significantly improved. There is mild right base parenchymal opacity. There is mild elevation of the right hemidiaphragm. Left lung is clear. Cardiomediastinal silhouette is stable. There is no pneumothorax. Signed by Larry Moyer MD 08/07/2017 07:31 P
--- NOTE | 2017-08-07 11:42 | REP ---
TWO VIEW CHEST: Two views of the chest are performed and compared to prior study of 08/06/2017. There is a right chest tube overlying the right hemithorax. There is a tiny amount of fluid in the minor fissure. There is mild bibasilar parenchymal opacity. There is a tiny right apical pneumothorax. A small amount of free air is seen under the right hemidiaphragm. Dr. Dewitt is aware of this finding. Signed by Larry Moyer MD 08/07/2017 07:31 P
[2017-08-07] MEDS: SLF 3 ML SYR IV SCH ×2 (13:02→21:37)
--- NOTE | 2017-08-07 13:14 | IPN ---
DATE: 08/07/2017 Ms. Villalobos feels much better today. Her pain is almost completely resolved before she had her empyema drained. She is sitting up comfortably in a chair on 2 liters nasal cannula. She does not remember any of the events last night. Her vital signs show a maximum temperature (t-max) of 98.0 with a heart rate that ranges between 71 and 65 in a sinus rhythm, respiratory rate of 14 to 17 without the use of accessory muscles, who is 95 to 96% saturated on 2 liters nasal cannula and just now on room air at 95%. Her blood pressure is ranging between 112/56 to 125/68. Intake and output over the past 24 hours has been recorded as 410 in and 1150 out for a negativity of 750 mL. She has put out 1150 mL from the chest tube, that is excluding the large amount that was lost in the bed last night. She weighs 108 kg today compared to 108.4 kg on admission. PHYSICAL EXAMINATION: LUNGS: She has equal breath sounds on either side. She has inspiratory rales and coarse rhonchi on the right side. This occurs mainly during all of expiration. CARDIAC EXAM: She has a 2/6 systolic ejection murmur at the left upper sternal border. I cannot feel her point of maximum impulse (PMI). S1, S2 are normal. ABDOMEN: Soft, nontender. Bowel sounds positive. There is no hepatomegaly. No costovertebral angle tenderness that I can appreciate her through her morbid obesity. Of note, her right upper quadrant is nontender. EXTREMITIES: Show trace to 1+ pretibial edema. No calf tenderness. No differential swelling of the upper extremities. SKIN: Warm, dry and perfused without cyanosis or mottling, including that of the nail beds and knees. NECK: Supple. There is no jugular venous distention. No subcutaneous emphysema. Trachea is midline. MOUTH: Shows her mucous membranes to be pink and moist. Lips and commissures without lesions. There is no thrush. EYES: Show her pupils to be equal and reactive. Extraocular motion intact. Sclerae anicteric. NEUROLOGIC: Shows II through XII intact with gross motor and gross sensation intact. Gait is not tested. PSYCHIATRIC: Shows her to be awake and alert, oriented times three with appropriate mood and affect and conversational. Her white count today is 10.4 with a hemoglobin and hematocrit of 9.2 and 28.7, stable from earlier this morning of 9.2 and 28.0. Her admission hemoglobin and hematocrit was 11.2 and 34.2. Platelet count is 53, which is consistent with her thrombocytopenia for a number of years. Differential shows 87% neutrophils, 4% lymphocytes, 5% monocytes. There are no immature forms. No toxic granulations. Electrolytes today were normal with a BUN and creatinine of 21 and 0.91, glucose 27, calcium 7.2. AST and ALT are normal with a corresponding albumin of 2.5. Blood gases this morning show a pH of 7.39, PCO2 of 44, PO2 of 98 on 2 liters nasal cannula with a base excess of 1.7. Her pleural fluid has been returned with 47,000 nucleated cells, 95% of which are neutrophils. Glucose in the fluid however is 131 with a pH of 7.48. LDH is 222 with a corresponding serum LDH of 175, making this neutrophilic and exudative, consistent with an empyema. Her chest x-ray today showed her lung fully expanded to the chest wall. I was suspicious yesterday that the first chest tube was below the diaphragm, even though radiology did not think so; however, I do see a little bit of air under the diaphragm. The lateral film shows posterior consolidative infiltrative process on the right side. Both costophrenic angles are sharp. IMPRESSION: 1. Right sided empyema. 2. Community acquired pneumonia. 3. Thrombocytopenia, chronic, cause unknown. 4. Hypertension. 5. Diarrhea, controlled. 6. Hypoalbuminemia. 7. Morbid obesity. PLAN AND DISCUSSION: I have already spoke with Dr. Longoria of the hospitalist service. We will continue to treat her community acquired pneumonia on Rocephin and azithromycin. We will await cultures from the pleural fluid. The Gram-stain on the pleural fluid does not show any organisms but many white cells. I will continue her chest tube drainage until it decreases. I am a bit worried about her thrombocytopenia and potential bleeding from the chest tube. We will continue to monitor her CBC and chest x-ray.
--- NOTE | 2017-08-07 15:17 | RO ---
DATE OF PROCEDURE: 08/07/2017 PREPROCEDURE DIAGNOSIS: POSTPROCEDURE DIAGNOSIS: PROCEDURE: SURGEON: Fredrick Dewitt MD CONCRETE CURER: ANESTHESIA: DESCRIPTION OF PROCEDURE: Please see the prior procedure note. The patient's moderate sedation was again continued to a total of 8 mg of Versed. She was again prepped and draped in the usual sterile fashion and an incision was made above the previous incision. A tunnel was again created into the chest with some difficulty considering her morbid obesity. Finally, a #24 chest tube was placed with production of cloudy, turbid fluid. There was a lot of spillage of fluid on to the bed, but eventually 600 mL was eluted from the chest into a Marley bag. It was sent for requisite cultures, bacteriology, hematology, cytology, and chemistries. The patient tolerated the procedure well and chest x-ray is pending. The prior chest tube was removed. [facility]
--- NOTE | 2017-08-07 15:21 | RO ---
DATE OF PROCEDURE: 08/06/2017 PREPROCEDURE DIAGNOSIS: Parapneumonic effusion, empyema, right side. POSTPROCEDURE DIAGNOSIS: Parapneumonic effusion, empyema, right side. PROCEDURE: Insertion of right lateral chest tube. SURGEON: Dr. Fredrick Dewitt YOUTH AGENT: ANESTHESIA: DESCRIPTION OF PROCEDURE: Under satisfactory moderate sedation achieved with 4 mg of Versed, the patient was prepped and draped in the usual sterile fashion. Incision was made and a tunnel was created into the chest. I obtained cloudy, opaque fluid. A #24 chest tube was attempted to be placed and met resistance. After numerous manipulations, a #20 chest tube was placed, but there was no return of fluid. There was blood within the tube. I, therefore, secured the tube to the chest wall and undertook a CT scan. After returning from CT scan, it was clear that the tube was not in the correct position. While x-ray read it as being in the chest, I have a sinking feeling that it was below the diaphragm, and I, therefore, undertook yet another chest tube placement. It will be dictated in a separate note.
[2017-08-07] MEDS: cefTRIAXone SOD 2 GM in D5W MINI-BAG PLUS 50 ML IV SCH (21:36)
[2017-08-08] VITALS: BP 128/63
[2017-08-08] MEDS: LEVALBUTEROL 1.25 MG/0.5 ML CONCENTRATE NEB NEB SCH ×5 (02:00→20:36)
[2017-08-08 04:00] VITALS: BP 132/61
[2017-08-08] MEDS: KETOROLAC 30 MG/ML VIAL (J1885) IV SCH ×5 (05:47→23:04)
[2017-08-08] MEDS: SLF 3 ML SYR IV SCH ×3 (05:49→21:46)
[2017-08-08 05:58] LABS: WHITE BLOOD COUNT 11.2 K/mm3 (4.0-10.0)
[2017-08-08 05:59] LABS: BASO % 0.2 % (0.0-1.0); EOS % 2.5 % (0.0-3.0); LYMPH # 0.9 K/mm3 (1.5-4.5); LYMPH % 7.8 % (24.0-44.0); MEAN CORPUSCULAR HEMOGLOBIN 25.1 pg (27.0-33.0); MEAN CORPUSCULAR VOLUME 80.8 fl (80.0-96.0); MONO % 5.9 % (0.0-5.0); NEUTROPHILS # 9.1 K/mm3 (1.8-7.7); NEUTROPHILS % 81.6 % (36.0-66.0); PLATELET COUNT, AUTOMATED 57 k/mm3 (150-450); RED CELL DISTRIBUTION WIDTH 16.2 % (11.5-14.5)
[2017-08-08 06:00] LABS: EOS # 0.3 K/mm3 (0.0-0.50); LARGE UNSTAINED CELL # 0.2 K/mm3 (0.0-0.4); MONO # 0.7 K/mm3 (0.0-0.8)
[2017-08-08 06:06] LABS: ANION GAP 8 MEQ/L (8-16); CALCIUM LEVEL 6.9 MG/DL (8.8-10.2); CARBON DIOXIDE LEVEL 29 MEQ/L (21-32); CHLORIDE LEVEL 106 MEQ/L (98-107); CREATININE FOR GFR 0.91 MG/DL (0.55-1.02); GLOMERULAR FILTRATION RATE > 60.0 (>45); GLUCOSE, FASTING 98 MG/DL (80-110); POTASSIUM SERUM 3.6 MEQ/L (3.5-5.1); SODIUM LEVEL 143 MEQ/L (136-145)
[2017-08-08 06:30] LABS: BLOOD UREA NITROGEN 33 MG/DL (7-18)
--- NOTE | 2017-08-08 07:58 | IPNPDOC ---
Subjective Date Seen The patient was seen on 08/08/17. Subjective Chief Complaint/HPI The patient is a 67-year-old female admitted with a reason for visit of Pleural Effusion. General: Denies: ROS Unobtainable, Chills, Night Sweats, Fatigue, Malaise, Normal Appetite (Decreased appetite), Other Symptoms Constitutional: Denies: Chills, Fever, Malaise, Night Sweats, Weakness, Fatigue , Weight Loss, Lethargy, Other Eyes: Denies: Pain, Vision change, Conjunctivae inflammation, Eyelid inflammation, Redness, Other ENT: Denies: Head Aches, Ear Pain, Dysphagia, Sinus Congestion, Post Nasal Drip , Sore Throat, Epistaxis, Other Symptoms Skin: Denies: Rash, Lesions, Jaundice, Bruising, Itching, Dry, Breakdown, Nail Changes, Other Pulmonary: Reports: Dyspnea (Developed some shortness of breath overnight), Pleuritic Chest Pain (Some chest pain at site of chest tube.), Denies: Cough, Other Symptoms Cardiovascular: Denies: Chest Pain, Palpitations, Orthopnea, Paroxysmal Noc. Dyspnea, Edema, Lt Headedness, Other Symptoms Gastrointestinal: Denies: Nausea, Vomiting, Abdominal Pain, Diarrhea, Constipation, Melena, Hematochezia, Other Symptoms Genitourinary: Denies: Dysuria, Frequency, Incontinence, Hematuria, Retention, Other Symptoms Hematologic: Denies: Bruising, Bleeding Excessively, Petecchia, Purpura, Enlarged Lymph Nodes, Other Hematologic Endocrine: Denies: Polydipsia, Polyphagia, Polyuria, Heat Intolerance, Cold Intolerance, Other Endocrine Sx Objective Physical Examination General Exam: Positive: Alert, Cooperative, No Acute Distress Eye Exam: Positive: PERRLA, Conjunctiva & lids normal, EOMI, Negative: Sclera icteric ENT Exam: Positive: Atraumatic Neck Exam: Positive: Supple Chest Exam: Positive: Normal air movement, Diminished, Other (right sided chest tube in place, draining serosanguinous fluid) Heart Exam: Positive: Rate Normal, Regular Rhythm, Normal S1, Normal S2 Telemetry: Positive: No significant arrhythmia, Bradycardia Abdomen Exam: Positive: Normal bowel sounds, Soft, Other (obese), Negative: Tenderness Neuro Exam: Positive: Normal Speech Psych Exam: Positive: Mental status NL, Oriented x 3, Negative: Anxiety Assessment /Plan Problems (1) Pleural effusion Status: Acute Response to Treatment: Improving Discussed With: Combination Window Installer, Patient Problem Specific Plan: Consult Specialist, Monitor Clinically Problem Text: Appears to be secondary to pneumonia possibly complicated with her recent trauma. Chest tube in place. Pleural fluid analysis appears to be transudative, with high total nucleated cells. Cultures pending. Patient's symptoms of SOB significantly improved. Continue to follow as per CTS, assistance greatly appreciated. Incentive spirometry at bedside. (2) Thrombocytopenia Status: Chronic Response to Treatment: Progressing Discussed With: Patient Problem Specific Plan: Monitor Clinically, Repeat Labs, Repeat Tests Problem Text: Unclear etiology, patient unaware if this is chronic issue. Reviewing records, appears this is a chronic issue. Peripheral smear pending. Avoid heparin products. Discuss further with CTS regarding utility of platelet transfusion given hemothorax/pleural effusion. (3) Pneumonia Status: Acute Response to Treatment: Improving Discussed With: Combination Window Installer, Patient Problem Specific Plan: Monitor Clinically, Repeat Labs Problem Text: Continue with cef/azithro for CAP. WBC slightly increased - will continue to follow. Pleural fluid cultures pending. MRSA screen pending. Incentive spirometry. (4) HTN (hypertension) Status: Chronic Response to Treatment: Stable Problem Specific Plan: Monitor Clinically Plan/VTE VTE Prophylaxis Ordered?: Yes (mechanical) Plan IVF: Discontinue Diet: Continue Current Activity: Continue Current Respiratory: Wean Oxygen Diagnostics: Repeat Labs in AM, Obtain Cultures Anticipated Discharge: Home Wean off O2. Continue IV antibiotics pending pleural fluid cultures. Continue chest tube as per CTS. Monitor thrombocytopenia, peripheral smear pending. Will obtain EDTA free sample today. VS, I&O, 24H, Fishbone Vital Signs/I&O Vital Signs Date Time Temp Pulse Resp B/P (MAP) Pulse Ox O2 Delivery O2 Flow Rate FiO2 08/08/17 04:00 Room Air 08/08/17 04:00 98.8 71 18 132/61 (84) 94 08/07/17 08:00 2.0 Laboratory Data 24H LABS Laboratory Tests 2 08/08/17 05:11: White Blood Count 11.2H, Red Blood Count 3.58L, Hemoglobin 9.0L, Hematocrit 28.9L, Mean Corpuscular Volume 80.8, Mean Corpuscular Hemoglobin 25.1L, Mean Corpuscular Hemoglobin Concent 31.0L, Red Cell Distribution Width 16.2H, Platelet Count 57L, Neutrophils (%) (Auto) 81.6H, Lymphocytes (%) (Auto) 7.8L, Monocytes (%) (Auto) 5.9H, Eosinophils (%) (Auto) 2.5, Basophils (%) (Auto) 0.2 , Neutrophils # (Auto) 9.1H, Lymphocytes # (Auto) 0.9L, Monocytes # (Auto) 0.7, Eosinophils # (Auto) 0.3, Basophils # (Auto) 0.0, Large Unclassified Cells % 2.0 , Large Unclassified Cells # 0.2, Anion Gap 8, Glomerular Filtration Rate > 60.0 , Blood Urea Nitrogen 33#H, Creatinine 0.91, Sodium Level 143, Potassium Level 3.6, Chloride Level 106, Carbon Dioxide Level 29, Calcium Level 6.9L CBC/BMP Laboratory Tests 08/08/17 05:11 Red Blood Count 3.58 L, Mean Corpuscular Volume 80.8, Mean Corpuscular Hemoglobin 25.1 L, Mean Corpuscular Hemoglobin Concent 31.0 L, Red Cell Distribution Width 16.2 H, Neutrophils (%) (Auto) 81.6 H, Lymphocytes (%) (Auto ) 7.8 L, Monocytes (%) (Auto) 5.9 H, Eosinophils (%) (Auto) 2.5, Basophils (%) ( Auto) 0.2, Neutrophils # (Auto) 9.1 H, Lymphocytes # (Auto) 0.9 L, Monocytes # ( Auto) 0.7, Eosinophils # (Auto) 0.3, Basophils # (Auto) 0.0, Calcium Level 6.9 L Microbiology Microbiology 08/06/17 Acid Fast Stain, Received Pending 08/06/17 Mycobacterial Culture, Received Pending 08/06/17 Fungal Smear, Received Pending 08/06/17 Fungal Culture, Received Pending 08/06/17 Gram Stain - Final, Resulted 08/06/17 Anaerobic Culture, Resulted Pending 08/06/17 Body Fluid Culture, Received Pending CHRISTEN ALDRIDGE MD Aug 08, 2017 07:57
[2017-08-08 08:00] VITALS: BP 131/57
[2017-08-08 08:48] LABS: PLTBLUE- EDTA FREE MACHINE 61 k/mm3 (172-450)
[2017-08-08 08:49] LABS: PLTBLUE- EDTA FREE CALC 67 K/mm3 (172-450)
[2017-08-08] MEDS: DOCUSATE SODIUM 100 MG CAP PO SCH ×2 (09:00→21:43)
[2017-08-08] MEDS: MOM 30ML SUSPENSION UDC PO SCH (09:00)
[2017-08-08] MEDS: NADOLOL 20MG TABLET PO SCH ×2 (09:04→20:51)
[2017-08-08] MEDS: PANTOPRAZOLE 40MG TAB (PROTONIX) PO SCH (09:04)
[2017-08-08] MEDS: VITAMIN E 400 INTERNATIONAL UNITS CAP PO SCH (09:04)
[2017-08-08] MEDS: ASCORBIC ACID 500 MG TAB PO SCH (09:04)
[2017-08-08] MEDS: LOSARTAN 50 MG TAB PO SCH (09:04)
[2017-08-08] MEDS: VITAMIN D 1,000 INTERNATIONAL UNITS TABLET PO SCH (09:04)
[2017-08-08] MEDS: VITAMIN A 10,000 INTERNATIONAL UNITS CAP PO SCH (09:04)
[2017-08-08] MEDS: CALCIUM/VITAMIN D 500 MG TAB PO SCH ×2 (11:47→21:43)
[2017-08-08 12:00] VITALS: BP 134/56
--- NOTE | 2017-08-08 13:22 | REP ---
CHEST, TWO VIEWS: Two views of the chest were performed and compared to prior study of 08/07/2017. Right chest tube remains in place. Tiny right apical pneumothorax is stable. There is again a tiny amount of fluid in the right minor fissure with some mild bibasilar atelectatic change. The cardiomediastinal silhouette is unchanged. Density in the posterior costophrenic sulcus is unchanged. IMPRESSION: Stable exam. Signed by Larry Moyer MD 08/08/2017 07:14 P
--- NOTE | 2017-08-08 13:32 | IPN ---
DATE: 08/08/2017 Ms. Shaikhs pain is being well controlled and much better than it was when she was admitted. She is breathing well and not complaining of shortness of breath. Her vital signs show a maximum temperature (t-max) of 98.8 with a heart rate that ranges between 74 and 60 in a sinus rhythm, respiratory rate of 17 to 19 without the use of accessory muscles, who is 94 to 97% saturated on room air. Her blood pressure is ranging between 133/87 to 128/63. Her intake and output over the past 24 hours has been recorded as 1745 in and 1640 out for a positivity of 100 mL. She has put out 1340 mL from the chest tube over 24 hours. In the last 12 hours, she has put out 175 mL. She weighs 108.8 kg today compared to 108 kg yesterday. She has only put out 300 mL in urine and has taken in 1345 mL in oral intake. PHYSICAL EXAMINATION: LUNGS: I hear coarse rales and rhonchi on top of finer rales. Inspiration and expiration in her right lower hemithorax. Percussion note is full to the diaphragm as far as I can tell through her morbid obesity. CARDIAC EXAM: Shows a 2/6 systolic ejection murmur at the left upper sternal border. I cannot feel her point of maximum impulse (PMI). S1, S2 are normal. ABDOMEN: Soft, nontender. Bowel sounds positive. There is no hepatomegaly. No costovertebral angle tenderness. Most notably she is not tender in the right upper quadrant. There is no costovertebral angle tenderness. EXTREMITIES: Show trace pretibial edema. No calf tenderness. No differential swelling of the upper extremities. SKIN: Warm, dry and perfused without cyanosis or mottling, including that of the nail beds and knees. NECK: Supple. There is no jugular venous distention. No subcutaneous emphysema. Trachea is midline. MOUTH: Shows her mucous membranes to be pink and moist. Lips and commissures without lesions. There is no thrush. EYES: Show her pupils to be equal and reactive. Extraocular motion intact. Sclerae anicteric. NEUROLOGIC: Shows II through XII intact with gross motor and gross sensation intact. Gait is not tested. PSYCHIATRIC: Shows her to be awake, alert, oriented times three with appropriate mood and affect and conversational. Her white count today is 11.2 with a hemoglobin and hematocrit of 9.0 and 28.9, unchanged from yesterday with a platelet count of 57, essentially unchanged from yesterday's 53. Differential shows 81% neutrophils, 7% lymphocytes, 5% monocytes. There are no immature forms. No toxic granulations. There are no blood gases on her today. Chemistries showed normal electrolytes with a BUN and creatinine of 33 and 0.91, glucose 98, and calcium 6.9. Her albumin on admission was 2.5. Her corrected calcium is 8.1, which still makes her hypoglycemic, as the lower limit of normal in this hospital is 8.8. Her chest x-ray shows the lung fully expanded to the chest. There is no subcutaneous emphysema. The right costophrenic angle is sharp, as is the left. She has some infiltrative changes in the right lower lobe adjacent to the diaphragm, although I can see the entire line of the diaphragm. Most significantly however there is a consolidation in the inferior lower lobe in the lateral chest x-ray. She is continuing on Rocephin and azithromycin for community acquired pneumonia. I discussed her fluid results yesterday. Final culture shows no anaerobic growth. The aerobic bottle is still pending. IMPRESSION: 1. Right sided empyema. 2. Community-acquired pneumonia. 3. Thrombocytopenia, chronic, cause unknown. 4. Hypertension. 5. Diarrhea, controlled. 6. Hypoalbuminemia. 7. Morbid obesity. 8. Hypocalcemia. PLAN AND DISCUSSION: She has put out too much from the chest tube to remove it. We will continue her on the antibiotics. I will give her some extra calcium. We will await the anaerobic cultures, although I suspect that they are going to be negative, as there were no organisms seen on Gram-stain. Hemoglobin and hematocrit have stabilized. At this point in time, I do not think that she needs a transfusion.
[2017-08-08 16:00] VITALS: BP 117/57
[2017-08-08 20:00] VITALS: BP 109/66
[2017-08-08] MEDS: cefTRIAXone SOD 2 GM in D5W MINI-BAG PLUS 50 ML IV SCH (21:43)
[2017-08-08] MEDS: AZITHROMYCIN INJ 500 MG, VIAL MATE ADAPTER 1 EACH in D5W 250 ML IV SCH (23:04)
[2017-08-08] MEDS: ONDANSETRON 4MG/2ML VIAL (J2405) IV PRN (23:19)
[2017-08-09] VITALS: BP 104/55
[2017-08-09] MEDS: LEVALBUTEROL 1.25 MG/0.5 ML CONCENTRATE NEB NEB SCH ×4 (01:09→20:38)
[2017-08-09 04:00] VITALS: BP 126/58
[2017-08-09] MEDS: SLF 3 ML SYR IV SCH ×3 (05:32→21:31)
[2017-08-09] MEDS: KETOROLAC 30 MG/ML VIAL (J1885) IV SCH ×4 (05:32→23:49)
[2017-08-09 05:45] LABS: ANION GAP 5 MEQ/L (8-16); BLOOD UREA NITROGEN 40 MG/DL (7-18); CALCIUM LEVEL 7.8 MG/DL (8.8-10.2); CARBON DIOXIDE LEVEL 33 MEQ/L (21-32); CHLORIDE LEVEL 103 MEQ/L (98-107); CREATININE FOR GFR 0.82 MG/DL (0.55-1.02); GLOMERULAR FILTRATION RATE > 60.0 (>45); GLUCOSE, FASTING 87 MG/DL (80-110); POTASSIUM SERUM 3.8 MEQ/L (3.5-5.1); SODIUM LEVEL 141 MEQ/L (136-145)
[2017-08-09 05:50] LABS: BASO % 0.3 % (0.0-1.0); EOS # 0.3 K/mm3 (0.0-0.50); EOS % 4.8 % (0.0-3.0); LARGE UNSTAINED CELL # 0.1 K/mm3 (0.0-0.4); LARGE UNSTAINED CELL % 2.3 % (0.0-4.0); LYMPH # 0.7 K/mm3 (1.5-4.5); LYMPH % 11.9 % (24.0-44.0); MEAN CORPUSCULAR HEMOGLOBIN 26.5 pg (27.0-33.0); MEAN CORPUSCULAR HGB CONC 32.8 g/dl (32.0-36.5); MEAN CORPUSCULAR VOLUME 80.9 fl (80.0-96.0); MONO # 0.4 K/mm3 (0.0-0.8); MONO % 6.9 % (0.0-5.0); NEUTROPHILS # 4.4 K/mm3 (1.8-7.7); NEUTROPHILS % 73.8 % (36.0-66.0)
[2017-08-09 05:55] LABS: PLATELET COUNT, AUTOMATED 68 k/mm3 (150-450)
[2017-08-09 08:00] VITALS: BP 108/55
[2017-08-09] MEDS: NADOLOL 20MG TABLET PO SCH ×2 (09:00→21:00)
[2017-08-09] MEDS: MOM 30ML SUSPENSION UDC PO SCH (09:00)
[2017-08-09] MEDS: LOSARTAN 50 MG TAB PO SCH (09:00)
[2017-08-09] MEDS: PANTOPRAZOLE 40MG TAB (PROTONIX) PO SCH (09:00)
--- NOTE | 2017-08-09 09:28 | REP ---
PA and lateral chest: Comparison is 08/08/2017. The right thoracotomy tube is unchanged. A tiny right pneumothorax is unchanged. The minor fissure is mildly thickened compatible with a small volume of pleural fluid. The lung cueva otherwise clear. Cardiac size is normal. Signed by Larry Griffiths MD 08/09/2017 09:20 A
[2017-08-09] MEDS: DOCUSATE SODIUM 100 MG CAP PO SCH ×2 (09:55→21:31)
[2017-08-09] MEDS: CALCIUM/VITAMIN D 500 MG TAB PO SCH ×2 (09:56→21:32)
[2017-08-09] MEDS: VITAMIN A 10,000 INTERNATIONAL UNITS CAP PO SCH (09:56)
[2017-08-09] MEDS: VITAMIN D 1,000 INTERNATIONAL UNITS TABLET PO SCH (09:56)
[2017-08-09] MEDS: ASCORBIC ACID 500 MG TAB PO SCH (09:57)
[2017-08-09] MEDS: VITAMIN E 400 INTERNATIONAL UNITS CAP PO SCH (09:57)
[2017-08-09 11:37] VITALS: BP 107/51
--- NOTE | 2017-08-09 12:44 | IPN ---
DATE: 08/09/2017 Ms. Villalobos is feeling well today. She has no complaints of pain. No chest pain. No shortness of breath. She does of course have discomfort with the chest tube and thinks it is still draining quite a bit. Temperature is 97.3, pulse 61, respiratory rate 18, blood pressure 107/51, 96% on room air. Intake and output notable for a positive fluid balance of 630. No bowel movements yesterday. She is awake, appropriately interactive, pleasantly conversant with increased bronchial breath sounds bilaterally. There is no accessory muscle use. She does speak in complete sentences. Heart is distant sounding. Normal S1 and S2. Abdomen soft, doughy, nontender. There is no significant lower extremity edema. White cell count is 6, hemoglobin 9.4, platelets of 68. BUN 40, creatinine 0.82. Pleural fluid has resulted strep group C. My assessment is as follows: This is a 67-year-old with community-acquired pneumonia and empyema. 1. Infectious disease. The patient has pneumonia and empyema. At this point, we can focus in her antibiotics. No further need for azithromycin. 2. Patient has empyema. Chest tube being managed by Dr. Dewitt. Appreciate his assistance. 3. Patient has ongoing thrombocytopenia, which appears to be chronic. This cannot be followed as an outpatient. 4. Patient has hypertension.
[2017-08-09] MEDS: FUROSEMIDE 40 MG/4 ML VIAL (J1940) IV SCH (14:08)
[2017-08-09] MEDS: POTASSIUM CHLORIDE 10 MEQ SR TABLET PO SCH ×2 (14:09→21:32)
[2017-08-09] MEDS: SLF 3 ML SYR IV PRN ×2 (14:10→18:20)
[2017-08-09 16:00] VITALS: BP 121/61
[2017-08-09 20:00] VITALS: BP 141/63
--- NOTE | 2017-08-09 20:41 | IPN ---
DATE: 08/09/2017 Ms. Villalobos is doing well today with regard to her pain. She is still putting out too much out of the chest tube to remove it. She is breathing well. There is a slight cough but no sputum production. Her vital signs show a maximum temperature (t-max) of 98.4 with a heart rate that ranges between 59 and 61 in a sinus rhythm, respiratory rate that is constant at 18, who is 97% saturated on room air. Her blood pressure is ranging between 108/55 to 126/58. Her intake and output over the past 24 hours has been recorded as 1745 in and 1115 out for a positivity of 630 mL. She has put 485 mL from the chest tube and there is no air leak. In the last 12 hours, she has put out 400 mL out of the chest tube. Her weight today is 109 kg compared to 108.8 kg yesterday. She has only put out 650 mL in urine. PHYSICAL EXAMINATION: LUNGS: She has crackles in both bases with a squeak in the right upper hemithorax, most likely consistent with a chest tube rub. CARDIAC EXAM: Without murmurs, clicks, gallops or rubs. I cannot feel her point of maximum impulse (PMI). S1, S2 are normal. Of note is that the murmur that I heard a few days ago is now gone. ABDOMEN: Soft, nontender. Bowel sounds positive. There is no hepatomegaly. No costovertebral angle tenderness. EXTREMITIES: Show trace pretibial edema. No calf tenderness. No differential swelling of the upper extremities. SKIN: Warm, dry and perfused without cyanosis or mottling, including that of the nail beds and knees. NECK: Supple. There is no jugular venous distention. No subcutaneous emphysema. Trachea is midline. MOUTH: Shows her mucous membranes to be pink and moist. Lips and commissures without lesions. There is no thrush. EYES: Show her pupils to be equal and reactive. Extraocular motions intact. Sclerae anicteric. NEUROLOGIC: Shows II through XII intact with gross motor and gross sensation intact. Gait is not tested. PSYCHIATRIC: Shows her to be awake, alert, oriented times three with appropriate mood and affect and conversational. Her white count today is 6.0 with a hemoglobin and hematocrit of 9.4 and 26, unchanged from yesterday. Platelet count is 68 and essentially stable with a differential that shows 73% neutrophils, 11% lymphocytes, 6% monocytes. There are no immature forms. No toxic granulations. Her electrolytes are normal with a marginally high total CO2 of 33, a BUN and creatinine of 40 and 0.82. Her glucose is 82 with a calcium of 7.8, which is increasing. Cytology shows no malignant cells. The cell block is still pending. Her chest x-ray shows the lung fully expanded to the chest wall. Costophrenic angles are sharp. The consolidative process in the posterior-inferior left hemithorax is resolving additionally. Her microbiology has now been reported back as group C step from the pleural fluid but only a few colonies. Sensitivities are pending. IMPRESSION: 1. Right sided empyema. 2. Community-acquired pneumonia. 3. Thrombocytopenia, chronic, cause unknown. 4. Hypertension. 5. Diarrhea, controlled. 6. Hypoalbuminemia. 7. Morbid obesity. 8. Hypocalcemia. PLAN AND DISCUSSION: I will continue to diurese her. Her chest tube output is clearing. There is still way too much for me to remove it. I will ask the medical service if they want to narrow her antibiotics considering she is now growing strep from the pleural fluid. She is presently being treated for a community-acquired pneumonia, which jives with the strep C.
[2017-08-09] MEDS: cefTRIAXone SOD 2 GM in D5W MINI-BAG PLUS 50 ML IV SCH (21:31)
[2017-08-10] VITALS: BP 140/65
[2017-08-10] MEDS: LEVALBUTEROL 1.25 MG/0.5 ML CONCENTRATE NEB NEB SCH ×4 (01:35→20:59)
[2017-08-10 04:00] VITALS: BP 130/60
[2017-08-10] MEDS: SLF 3 ML SYR IV SCH ×3 (05:36→22:46)
[2017-08-10] MEDS: KETOROLAC 30 MG/ML VIAL (J1885) IV SCH (05:36)
[2017-08-10 06:42] LABS: ANION GAP 6 MEQ/L (8-16); BLOOD UREA NITROGEN 36 MG/DL (7-18); CALCIUM LEVEL 7.7 MG/DL (8.8-10.2); CARBON DIOXIDE LEVEL 31 MEQ/L (21-32); CHLORIDE LEVEL 105 MEQ/L (98-107); CREATININE FOR GFR 0.68 MG/DL (0.55-1.02); GLOMERULAR FILTRATION RATE > 60.0 (>45); GLUCOSE, FASTING 97 MG/DL (80-110); SODIUM LEVEL 142 MEQ/L (136-145)
[2017-08-10 07:33] LABS: BASO % 0.4 % (0.0-1.0); EOS # 0.4 10^3/uL (0.0-0.50); EOS % 6.4 % (0.0-3.0); IMMATURE GRANULOCYTE % 0.9 % (0-0); LYMPH # 0.7 10^3/uL (1.5-4.5); LYMPH % 13.2 % (24.0-44.0); MEAN CORPUSCULAR HGB CONC 31.3 g/dl (32.0-36.5); MONO # 0.8 10^3/uL (0.0-0.8); MONO % 14.6 % (0.0-5.0); NEUTROPHILS # 3.6 10^3/uL (1.8-7.7); NEUTROPHILS % 64.5 % (36.0-66.0); RED CELL DISTRIBUTION WIDTH 16.6 % (11.5-14.5); WHITE BLOOD COUNT 5.6 10^3/uL (4.0-10.0)
[2017-08-10 07:36] LABS: PLATELET COUNT, AUTOMATED 77 10^3/uL (150-450)
[2017-08-10 08:00] VITALS: BP 143/67
--- NOTE | 2017-08-10 08:56 | REP ---
PA and lateral chest: Comparison is 08/09/2017. There is a right thoracotomy tube, unchanged. The right lateral and posterior costophrenic angles are effaced, unchanged. Mild thickening of the minor fissure is unchanged, compatible with a small volume of fluid. Tiny barely visible right pneumothorax in the apex is unchanged. Right hemidiaphragm is elevated, unchanged. Left lung is clear. Cardiac size is normal. Impression: No interval change. Signed by Larry Griffiths MD 08/10/2017 08:48 A
[2017-08-10] MEDS: VITAMIN E 400 INTERNATIONAL UNITS CAP PO SCH (09:51)
[2017-08-10] MEDS: MOM 30ML SUSPENSION UDC PO SCH (09:51)
[2017-08-10] MEDS: VITAMIN A 10,000 INTERNATIONAL UNITS CAP PO SCH (09:51)
[2017-08-10] MEDS: LOSARTAN 50 MG TAB PO SCH (09:51)
[2017-08-10] MEDS: VITAMIN D 1,000 INTERNATIONAL UNITS TABLET PO SCH (09:51)
[2017-08-10] MEDS: POTASSIUM CHLORIDE 10 MEQ SR TABLET PO SCH ×2 (09:52→22:44)
[2017-08-10] MEDS: ASCORBIC ACID 500 MG TAB PO SCH (09:52)
[2017-08-10] MEDS: DOCUSATE SODIUM 100 MG CAP PO SCH ×2 (09:52→22:45)
[2017-08-10] MEDS: CALCIUM/VITAMIN D 500 MG TAB PO SCH ×2 (09:52→22:44)
[2017-08-10] MEDS: PANTOPRAZOLE 40MG TAB (PROTONIX) PO SCH (09:52)
[2017-08-10] MEDS: NADOLOL 20MG TABLET PO SCH ×2 (09:52→22:45)
[2017-08-10] MEDS: FUROSEMIDE 40 MG/4 ML VIAL (J1940) IV SCH ×2 (09:53→22:45)
[2017-08-10 10:32] LABS: ALBUMIN/GLOBULIN RATIO 0.61 (1.00-1.93); ALKALINE PHOSPHATASE 72 U/L (45-117); ALT/SGPT 20 U/L (12-78); AST/SGOT 21 U/L (15-37); BILIRUBIN,TOTAL 0.4 MG/DL (0.2-1.0); CHOLESTEROL LEVEL 98 MG/DL (< 200); PHOSPHORUS LEVEL 3.4 MG/DL (2.5-4.9); TOTAL PROTEIN 5.3 GM/DL (6.4-8.2); TRIGLYCERIDES LEVEL 85 MG/DL (<150)
[2017-08-10 11:25] LABS: BF MONONUCLEAR CELL % 42.3 % (0-0); BF POLYMORPHONUCLEAR CELL % 57.7 CELLS/uL (0-0)
[2017-08-10 11:32] LABS: BF DIFF IF INDICATED? YES (NO)
[2017-08-10 11:58] LABS: LDH, BODY FLUID 385 U/L (NOT ESTABLISHED); TOTAL PROTEIN, BODY FLUID 1.1 G/DL (NOT ESTABLISHED)
[2017-08-10 12:00] VITALS: BP 137/63
--- NOTE | 2017-08-10 13:09 | REP ---
The CT of the chest without IV contrast: Comparisons are 08/06/2017 and 09/25/2014. There is a right thoracotomy tube. The right pleural effusion almost entirely evacuated except for a small volume of persisting pleural fluid in the posterior sulcus. There are a few air bubbles within the persisting or fluid. There is atelectasis in the medial basilar segment right lower lobe extending toward the right hilus. The remainder of the right lung is re-expanded. No lung masses are identified. A pleural mass could be obscured by the persisting pleural fluid in the posterior sulcus. There are multiple nondisplaced right rib fractures, unchanged from 08/06/2020, 17 mg of 09/25/2014. These fractures are age indeterminate and could be acute or subacute. There is no mediastinal or axillary lymph node enlargement. In the absence of IV contrast study is insensitive for hilar lymph node enlargement. The unenhanced thoracic aorta is unremarkable. Cardiac size normal. No pericardial effusion. In the upper abdomen. Gallbladder calculi are again identified. There is a small volume of subcutaneous emphysema along the right chest wall. I suspect there is edema in the mesenteric fat planes in the visualized upper abdomen. I suspect there is splenomegaly. On a prior CT of the abdomen and pelvis dated 11/11/2016. There was splenomegaly. There is chronic elevation of the right hemidiaphragm when compared to in the prior chest CT of 09/25/2014, likely eventration. Impression: No pulmonary masses are identified. No pleural masses are identified, however, a small nodule could be obscured by the persisting fluid in the posterior sulcus. There are tiny air bubbles within the persisting pleural fluid compatible with small pneumothorax. There is discoid atelectasis in the right lower lobe medially. There are multiple nondisplaced right rib fractures. These are likely acute versus subacute but are age indeterminate. There is no adenopathy. There is splenomegaly, unchanged from abdomen CT of 11/11/2016. Signed by Larry Griffiths MD 08/10/2017 01:00 P
[2017-08-10 16:00] VITALS: BP 145/66
--- NOTE | 2017-08-10 16:56 | IPN ---
DATE: 08/10/2017 Ms. Villalobos is feeling about the same today as yesterday. She is tolerating diet. She has no complaints of shortness of breath. Pain is controlled. Temperature is 97.7, pulse 82, respiratory rate 20, blood pressure 143/67, 96% on room air. Intake and output notable for a negative fluid balance of -915. One bowel movement noted yesterday. She is awake, appropriately interactive, pleasantly conversant. Breathing is symmetrical. Upper airway sounds are noted. Heart is distant sounding. No significant arrhythmia on the monitor. Abdomen soft, doughy, nontender. White cell count 5.6, hemoglobin 9, and platelets of 77. BUN 36, creatinine 0.68. Pleural fluid has been sent today. It has 2000 white cells. Cytology from the August 09 is thus far consistent with empyema. Chest CT is ordered and pending today. ASSESSMENT: This is a 67-year-old with group C Streptococcus pneumoniae and empyema. PLAN: 1. Infectious disease. Patient has pneumonia and empyema. I have discussed the case in general with our pharmacy and infectious disease provider. We will continue with ceftriaxone at this time. Patient does have a chest tube in place. I discussed this case in person with Dr. Dewitt. I appreciate his assistance. 2. Patient has ongoing thrombocytopenia, which is chronic. This can be followed as an outpatient. 3. Patient has hypertension, which is reasonably controlled in current setting. 4. Patient has a profound interest in essential oils, which we discussed at length at bedside.
--- NOTE | 2017-08-10 18:57 | IPN ---
DATE: 08/10/2017 Mrs. Villalobos is doing quite well today and is almost pain-free. We are going to stop her Toradol. Her vital signs show a T-max of 98.5 with a heart rate that ranges between 62 and 82 in a sinus rhythm, respiratory rate of 18 to 20 without the use of accessory muscles who is 96% saturated on room air and whose blood pressure is ranging between 141/63 to 130/60. Her intake and output over the past 24 hours has been recorded as 1020 in and 1935 out for a negativity of 900 mL. She has put out 1060 mL in chest tube output. There is no air leak. Urine output is 875 mL. Weight today is 108.1 kg compared to 109 kg yesterday. PHYSICAL EXAMINATION: She has coarse rhonchi in the right lower hemithorax along with fine inspiratory rales. Percussion note is full to the diaphragm. Cardiac exam is without murmurs, clicks, gallops or rubs. I cannot feel her point of maximal impulse (PMI). S1 and S2 are normal. Abdomen is soft and nontender. Bowel sounds are positive. There is no hepatomegaly. No costovertebral angle (CVA) tenderness. Extremities show trace pretibial edema. No calf tenderness. No differential swelling of the upper extremities. Skin is warm, dry and perfused without cyanosis or mottling including that of the nail beds and the knees. Neck is supple. There is no jugular venous distention. No subcutaneous emphysema. Trachea is midline. Mouth shows her mucous membranes to be pink and moist. Lips and commissures without lesions. No thrush. Eyes show her pupils to be equal, reactive. Extraocular muscles intact. Sclera anicteric. Neuro shows II through XII intact. Gross motor and gross sensation intact. Gait is not tested. Psychiatric shows her to be awake, alert and oriented times three with appropriate mood, affect and conversational. Her white count today is 5.6 with a hemoglobin and hematocrit of 9.0 and 28.8 which is stable. Platelet count is 77, again stable, with a differential that shows 64% neutrophils, 13% lymphocytes, 14% monocytes. There are no immature forms, no toxic granulations. Her chemistries showed normal electrolytes with BUN and creatinine of 36 and 0.68 compared to 40 and 0.82 yesterday. Glucose is 97. Calcium is 7.7 with an albumin of 2.0. AST and ALT are 21 and 20 respectively. Her chest x-ray again shows the lung fully expanded to the chest wall. There is a consolidative process on the lateral film posteriorly. There is no residual air space and the chest tube is in good place. Mediastinum is in the midline. There is no evidence of subcutaneous emphysema. IMPRESSION: 1. Right-sided pleural effusion/empyema. 2. Community acquired pneumonia growing Streptococcus C. 3. Thrombocytopenia, chronic, cause unknown. 4. Hypertension. 5. Diarrhea, controlled. 6. Hypoalbuminemia. 7. Morbid obesity. 8. Hypocalcemia. PLAN AND DISCUSSION: We have narrowed her antibiotics down to Rocephin to cover the Streptococcus C. I am very concerned about her increased chest tube output. I do not have a good explanation for that. It does not look cloudy or chylous, but nonetheless I will send an aliquot of it off for retesting. I will obtain a CT scan of her chest to see if there is any underlying explanation for the large output. I will continue to diurese her aggressively. Her creatinine in fact went down with diuresis yesterday. It may be just the inflammatory response from the empyema, however, I would have expected that if she had such an intense inflammatory response, she would have more pain.
[2017-08-10 20:00] VITALS: BP 157/70
[2017-08-10] MEDS: cefTRIAXone SOD 2 GM in D5W MINI-BAG PLUS 50 ML IV SCH (22:46)
[2017-08-11] VITALS (7 sets, daily range): BP systolic 111–137; BP diastolic 54–72
[2017-08-11] MEDS: LEVALBUTEROL 1.25 MG/0.5 ML CONCENTRATE NEB NEB SCH ×4 (00:33→20:29)
[2017-08-11] MEDS: SLF 3 ML SYR IV SCH ×3 (05:22→22:12)
[2017-08-11 05:50] LABS: BASO % 0.4 % (0.0-1.0); EOS # 0.4 10^3/uL (0.0-0.50); IMMATURE GRANULOCYTE % 0.6 % (0-0); LYMPH # 0.9 10^3/uL (1.5-4.5); LYMPH % 12.8 % (24.0-44.0); MEAN CORPUSCULAR HEMOGLOBIN 24.9 pg (27.0-33.0); MEAN CORPUSCULAR HGB CONC 31.1 g/dl (32.0-36.5); MEAN CORPUSCULAR VOLUME 79.9 fl (80.0-96.0); MONO % 14.1 % (0.0-5.0); NEUTROPHILS # 4.9 10^3/uL (1.8-7.7); NEUTROPHILS % 67.1 % (36.0-66.0); PLATELET COUNT, AUTOMATED 82 10^3/uL (150-450); RED CELL DISTRIBUTION WIDTH 16.2 % (11.5-14.5); WHITE BLOOD COUNT 7.2 10^3/uL (4.0-10.0)
[2017-08-11 06:08] LABS: ANION GAP 5 MEQ/L (8-16); BLOOD UREA NITROGEN 25 MG/DL (7-18); CALCIUM LEVEL 7.9 MG/DL (8.8-10.2); CARBON DIOXIDE LEVEL 31 MEQ/L (21-32); CHLORIDE LEVEL 104 MEQ/L (98-107); CREATININE FOR GFR 0.58 MG/DL (0.55-1.02); GLOMERULAR FILTRATION RATE > 60.0 (>45); GLUCOSE, FASTING 90 MG/DL (80-110); SODIUM LEVEL 140 MEQ/L (136-145)
[2017-08-11] MEDS: FUROSEMIDE 40 MG/4 ML VIAL (J1940) IV SCH ×2 (08:56→20:13)
[2017-08-11] MEDS: VITAMIN D 1,000 INTERNATIONAL UNITS TABLET PO SCH (08:56)
[2017-08-11] MEDS: VITAMIN E 400 INTERNATIONAL UNITS CAP PO SCH (08:56)
[2017-08-11] MEDS: LOSARTAN 50 MG TAB PO SCH (08:56)
[2017-08-11] MEDS: CALCIUM/VITAMIN D 500 MG TAB PO SCH ×2 (08:57→20:13)
[2017-08-11] MEDS: ASCORBIC ACID 500 MG TAB PO SCH (08:57)
[2017-08-11] MEDS: VITAMIN A 10,000 INTERNATIONAL UNITS CAP PO SCH (08:57)
[2017-08-11] MEDS: NADOLOL 20MG TABLET PO SCH ×2 (08:57→20:13)
[2017-08-11] MEDS: DOCUSATE SODIUM 100 MG CAP PO SCH ×2 (08:57→20:14)
[2017-08-11] MEDS: MOM 30ML SUSPENSION UDC PO SCH (08:58)
[2017-08-11] MEDS: POTASSIUM CHLORIDE 10 MEQ SR TABLET PO SCH (09:04)
[2017-08-11] MEDS: PANTOPRAZOLE 40MG TAB (PROTONIX) PO SCH (09:04)
[2017-08-11] MEDS: PERCOCET 5MG/325MG TAB PO PRN ×3 (09:05→21:47)
--- NOTE | 2017-08-11 10:03 | REP ---
CHEST, TWO VIEWS: HISTORY: Pleural effusion. COMPARISON: 08/10/2017 The lungs are clear. Increased density is present in the right posterior costophrenic angle unchanged compared to the previous study. This likely represents a pleural effusion. A small amount of fluid is present in the minor fissure. A chest tube is present in the right hemithorax. A very small pneumothorax is present. The heart is normal in size. The pulmonary vasculature is normal in appearance. The bony structure is intact. IMPRESSION: 1. Small right pneumothorax unchanged compared to the previous study. 2. There is increased density in the posterior right costophrenic angle unchanged compared to the previous study likely representing a pleural effusion. Signed by Minh Hamilton MD 08/11/2017 10:04 A
[2017-08-11] MEDS ORDERED: MS C15TA8 PO (11:46)
[2017-08-11] MEDS: SPIRONOLACTONE 25 MG TAB PO SCH (14:52)
--- NOTE | 2017-08-11 16:36 | IPN ---
DATE: 08/11/2017 Ms. Villalobos is complaining of chest pain today, pleuritic in nature. She has two kinds of pain. The bandage is pulling against her skin and also she has a deeper pain associated with deep breathing. Temperature is 97.7, pulse 55, respiratory rate 20, blood pressure 136/72, 98% on 2 liters. Intake and output notable for a negative fluid status of -3110. She is awake, appropriately interactive, pleasantly conversant. Engaging historian. Mucous membranes are moist. Neck is supple. Breathing is symmetrical. Coarse airway sounds throughout. Heart is distant sounding. Normal S1, S2. She is not bradycardic on my examination. Abdomen soft, doughy, nontender. White cell count 7.2, hemoglobin 9.3, platelets are consistently low at 82, BUN 25, creatinine 0.58. ASSESSMENT: This is a 67-year-old with empyema and pneumonia. PLAN: 1. Infectious disease. Continue with ceftriaxone at this time. Chest tube is still putting out a great deal of fluid. I have discussed the case in general with Dr. Dewitt, I appreciate his assistance. 2. Patient has ongoing thrombocytopenia, which is chronic. She has splenomegaly. This is most likely related to some undiagnosed liver dysfunction based on her low prealbumin and low albumin. We will check urine for protein wasting, although creatinine is within normal limits. She does not appear to have decompensated heart failure. 3. Patient has hypertension, which is reasonably well controlled.
[2017-08-11] MEDS: ONDANSETRON 4MG/2ML VIAL (J2405) IV PRN (20:33)
--- NOTE | 2017-08-11 20:41 | IPN ---
DATE: 08/11/2017 Mrs. Villalobos has put out an extraordinary amount out of her chest tube. It does not look chylous and the pleural fluid analysis does not show it to be chylous. In fact it is predominantly neutrophilic. She is feeling well and is eating well. Further, she has been in a little pain and what she has is being well controlled by oral analgesics. Her vital signs show a T-max of 99.5 with a heart rate that ranges between 55 and 65 in a sinus rhythm, respiratory rate of 18 to 20 without the use of accessory muscle use who is 98 to 94% saturated on room air and whose blood pressure is ranging between 136/72 to 157/70. Her intake and output over the past 24 hours has been recorded as only 470 in and 3580 out for a negativity of 3100 mL. Of that output she has put out 1800 ml in urine output and 780 mL from her chest tube. There is no air leak. She weighs 107.2 kg today compared to 108.1 kg yesterday. Over the 24 hour interval, she put out 445, 50 and 790 mL in 8 hour intervals. On physical examination her lungs show equal breath sounds on either side. There is still some faint rhonchi and rales during inspiration in the right lower hemithorax. Percussion note is full to the diaphragm. Cardiac exam is without murmurs, clicks, gallops or rubs. I cannot feel her point of maximal impulse (PMI). S1, S2 are normal. Abdomen is soft, nontender. Bowel sounds are positive. There is no hepatomegaly. No costovertebral angle (CVA) tenderness. Extremities show no pretibial edema. No calf tenderness or differential swelling of the upper extremities. Skin is warm, dry and perfused without cyanosis or mottling including that the nail beds and the knees. Neck is supple. There is no jugular venous distention. No subcutaneous emphysema. Trachea is midline. Mouth shows her mucous membranes to be pink and moist. Lips and commissures without lesions. No thrush. Eyes show her pupils to be equal, reactive. Extraocular muscles intact. Sclera anicteric. Neuro shows II through XII intact. Gross motor and gross sensation intact. Gait is not tested. Psychiatric shows her to be awake, alert and oriented times three with appropriate mood, affect and conversational. Her white count today is 7.2 with a hemoglobin and hematocrit of 9.3 and 29.9, unchanged from yesterday with a platelet count of 82, also unchanged. Differential shows 67% neutrophils, 12% lymphocytes, 14% monocytes. There are no immature forms, no toxic granulations. Her electrolytes are normal with a BUN and creatinine of 25 and 0.58. Glucose is 90 with a calcium of 7.9. Her albumin yesterday was 2.0 with a prealbumin of 8.0 today. Liver function tests are normal. AST and ALT of 21 and 20 respectively. Her chest x-ray shows her lung fully expanded to the chest wall. The lateral chest x-ray still shows the consolidative process in the right lower hemithorax. It actually looks worse today than it has before. PA film shows sharp costophrenic angles and I do not see the consolidative process on the PA film. Mediastinum is in the midline. IMPRESSION: 1. Right sided pleural effusion/empyema. 2. Community acquired pneumonia growing Streptococcus C. 3. Thrombocytopenia, chronic, cause unknown. 4. Hypertension. 5. Diarrhea, controlled. 6. Hyperalbuminemia. 7. Morbid obesity. 8. Hypocalcemia. PLAN AND DISCUSSION: She is putting out an extraordinary amount from the chest tube which I would not expect given the coarse of usual empyema. Upon reflection on her prior blood work it looks as though she may have been in the past pancytopenic. In fact, while her white count is normal she did not mount much of a white count in response to her empyema. Speaking with Dr. Rouse today, he thinks she could have cirrhosis. I will therefore start her on aldactone. He is going to get an ultrasound of her liver prior to a liver biopsy. I will continue her diuresis and add the aldactone.
[2017-08-11] MEDS: cefTRIAXone SOD 2 GM in D5W MINI-BAG PLUS 50 ML IV SCH (22:12)
[2017-08-12] MEDS: LEVALBUTEROL 1.25 MG/0.5 ML CONCENTRATE NEB NEB SCH ×4 (01:42→20:00)
[2017-08-12 04:00] VITALS: BP 132/68
[2017-08-12] MEDS: SLF 3 ML SYR IV SCH ×3 (05:33→21:30)
[2017-08-12 05:54] LABS: BASO % 0.5 % (0.0-1.0); EOS # 0.3 10^3/uL (0.0-0.50); EOS % 4.3 % (0.0-3.0); IMMATURE GRANULOCYTE % 0.7 % (0-0); LYMPH # 0.9 10^3/uL (1.5-4.5); LYMPH % 14.8 % (24.0-44.0); MEAN CORPUSCULAR HEMOGLOBIN 24.9 pg (27.0-33.0); MEAN CORPUSCULAR HGB CONC 31.3 g/dl (32.0-36.5); MEAN CORPUSCULAR VOLUME 79.6 fl (80.0-96.0); MONO # 0.8 10^3/uL (0.0-0.8); NEUTROPHILS # 3.9 10^3/uL (1.8-7.7); NEUTROPHILS % 65.7 % (36.0-66.0); PLATELET COUNT, AUTOMATED 83 10^3/uL (150-450); RED CELL DISTRIBUTION WIDTH 16.1 % (11.5-14.5)
[2017-08-12 06:11] LABS: ANION GAP 6 MEQ/L (8-16); BLOOD UREA NITROGEN 19 MG/DL (7-18); CALCIUM LEVEL 8.1 MG/DL (8.8-10.2); CARBON DIOXIDE LEVEL 31 MEQ/L (21-32); CHLORIDE LEVEL 102 MEQ/L (98-107); GLOMERULAR FILTRATION RATE > 60.0 (>45); GLUCOSE, FASTING 94 MG/DL (80-110); POTASSIUM SERUM 4.1 MEQ/L (3.5-5.1); SODIUM LEVEL 139 MEQ/L (136-145)
[2017-08-12 07:45] VITALS: BP 125/58
[2017-08-12] MEDS: CALCIUM/VITAMIN D 500 MG TAB PO SCH ×2 (08:55→21:28)
[2017-08-12] MEDS: LOSARTAN 50 MG TAB PO SCH (08:55)
[2017-08-12] MEDS: VITAMIN D 1,000 INTERNATIONAL UNITS TABLET PO SCH (08:55)
[2017-08-12] MEDS: ASCORBIC ACID 500 MG TAB PO SCH (08:55)
[2017-08-12] MEDS: NADOLOL 20MG TABLET PO SCH ×2 (08:56→21:00)
[2017-08-12] MEDS: VITAMIN E 400 INTERNATIONAL UNITS CAP PO SCH (08:56)
[2017-08-12] MEDS: SPIRONOLACTONE 25 MG TAB PO SCH (08:56)
[2017-08-12] MEDS: DOCUSATE SODIUM 100 MG CAP PO SCH ×2 (08:57→21:30)
[2017-08-12] MEDS: MOM 30ML SUSPENSION UDC PO SCH (08:57)
[2017-08-12] MEDS: PANTOPRAZOLE 40MG TAB (PROTONIX) PO SCH (08:57)
[2017-08-12] MEDS: FUROSEMIDE 40 MG/4 ML VIAL (J1940) IV SCH ×2 (08:58→21:00)
[2017-08-12] MEDS: VITAMIN A 10,000 INTERNATIONAL UNITS CAP PO SCH (08:59)
--- NOTE | 2017-08-12 09:03 | REP ---
CHEST, TWO VIEWS: HISTORY: Pleural effusion. COMPARISON: 08/11/2017. Linear densities are present in the right lower lobe consistent with atelectasis. Increased density is present in the right posterior costophrenic angle consistent with a pleural effusion unchanged compared to the previous study. A small amount of fluid is present in the minor fissure. A chest tube is present in the right hemithorax. A small right pneumothorax is present unchanged compared to the previous study. The left lung is clear. The heart is normal in size. The pulmonary vasculature is normal in appearance. The bony structure is intact. IMPRESSION: 1. Right lower lobe atelectasis. 2. Small right pneumothorax unchanged compared to the previous study. 3. Small right pleural effusion unchanged compared to the previous study. Signed by Minh Hamilton MD 08/12/2017 09:06 A
--- NOTE | 2017-08-12 09:47 | REP ---
Abdominal right upper quadrant ultrasound: Comparison is 01/16 for a comparison is 10/21/2016. There is no cholelithiasis, gallbladder wall thickening or pericholecystic fluid. There is no intrahepatic or extrahepatic biliary duct dilatation. The common duct measures 7.8 ml in diameter which is upper normal for patient age. The hepatic parenchyma is homogeneous. No hepatic masses or cysts. The visualized portion of the pancreatic head is unremarkable. The body and tail are obscured by bowel gas. There is no right renal calculus, hydronephrosis, mass or cyst. The right kidney is normal size measuring 12.9 cm craniocaudad length. There is a right pleural effusion and a right chest tube. The chest tube. Results in technical difficulty with the right upper quadrant ultrasound. Impression: Essentially negative abdominal right upper quadrant ultrasound except for right pleural effusion and right thoracotomy tube. Signed by Larry Griffiths MD 08/12/2017 09:38 A
[2017-08-12 12:00] VITALS: BP 120/58
--- NOTE | 2017-08-12 13:13 | IPN ---
DATE: 08/12/2017 Ms. Villalobos is complaining of pleuritic right sided pain associated with her chest tube today. She is tolerating it by leaning forward. Is not particularly short of breath but is finding it painful to take a deep breath. Temperature is 97.5, pulse 61, respiratory rate 20, blood pressure 125/58, 99% on room air. Intake and output notable for a negative fluid status of -2635. Weight is 105.5 kg. Chest tube drainage was 450. She is awake, appropriately interactive, seems somewhat uncomfortable. Mucous membranes are moist. Neck is supple. Breathing is symmetrical. Speaking in complete sentences. No accessory muscle use. Coarse upper airway sounds are noted. Heart is distant sounding. Normal S1, S2. No significant arrhythmia on the monitor. Abdomen soft, doughy, nontender. White cell count 6, hemoglobin 8.8, platelets of 83. BUN 19, creatinine 0.5. Liver ultrasound is remarkably unremarkable. Chest x-ray is basically unchanged. ASSESSMENT: This is a 67-year-old with empyema and pneumonia. PLAN: 1. Infectious disease. Continue with ceftriaxone. Chest tube is decreased. I greatly appreciate Dr. Dewitt's attention to the chest tube. 2. Patient has ongoing thrombocytopenia, which is chronic. She has splenomegaly, elevated coagulation studies, decreased protein. There are no specific findings on ultrasound of the liver to the reason for this. She says that she has had previous hepatitis workup done, which was in 2009, which was negative for hepatitis B and C. It looks as though she has also had a previous ferritin in April 2017, which was 24. Her urine is negative for protein and creatinine is within normal limits. Possibility of congestive heart failure (CHF) has not been investigated. She has no signs or symptoms of this. Cardiac size is normal on CT scan. It may still be reasonable to obtain an echocardiogram in this setting. Possibility of liver biopsy may be considered. 3. Patient has hypertension, which is well controlled.
--- NOTE | 2017-08-12 13:17 | IPN ---
DATE: 08/12/2017 Mrs. Villalobos has had a nearly pain-free 24 hours. She is breathing well and is in good spirits. Her vital signs show a T-max of 97.8 with a heart rate that ranges between 59 and 61 in a sinus rhythm, respiratory rate of 18 to 20 without the use of accessory muscles and who is 99% to 96% saturated on room air and whose blood pressure is ranging between 132/68 to 119/56. Her intake and output over the past 24 hours has been recorded as 1040 in and 3675 out for a negativity of 2635 mL. She has put out only 450 mL from the chest tube in 24 hours and 60 mL in the last 12 hours. This is markedly diminished. She has put out 3225 mL in urine output today compared to 1800 mL yesterday and 875 mL the day before. Her weight today is 105.5 kg compared to 107.2 kg yesterday. On physical examination, she has equal breath sounds on either side with faint rales and rhonchi during inspiration in the right lower hemithorax. Percussion note is full to the diaphragm. Cardiac exam is without murmurs, clicks, gallops or rubs. I cannot feel her point of maximal impulse (PMI). S1, S2 are normal. Abdomen is soft, nontender. Bowel sounds are positive. There is no hepatomegaly. No costovertebral angle (CVA) tenderness. Extremities show no pretibial edema. No calf tenderness. No differential swelling of the upper extremities. Skin is warm, dry and perfused without cyanosis or mottling including that the nail beds and the knees. Neck is supple. There is no jugular venous distention. No subcutaneous emphysema. Trachea is midline. Mouth shows her mucous membranes to be pink and moist. Lips and commissures without lesions. No thrush. Eyes show her pupils to be equal and reactive. Extraocular muscles intact. Sclerae anicteric. Neuro shows II through XII intact along with gross motor and gross sensation intact. Gait is not tested. Psychiatric shows her to be awake, alert and oriented times three with appropriate mood, affect and conversational. Her white count today is 6.0 with hemoglobin and hematocrit of 8.8 and 28.1, slightly down from yesterday of 9.3 and 29.9. Platelet count is 83 and stable. Differential shows 65% neutrophils, 14% lymphocytes, 14% monocytes. There are no immature forms and no toxic granulations. Electrolytes today are normal with a BUN and creatinine of 19 and 0.50 with a glucose of 94 and a calcium of 8.1. She underwent a liver ultrasound today requested by the internal medical service. There was no indication of steatohepatitis. The remainder of the liver was normal as was the pancreas. Her chest x-ray today shows the lung fully expanded to the chest wall. Costophrenic angles are sharp. I see no other infiltrates. There is some atelectatic changes on the right side. Lateral film still shows the consolidative process, but there looks to be more aeration within it inferiorly and posteriorly. IMPRESSION: 1. Right sided empyema. 2. Community acquired pneumonia growing Streptococcus C. 3. Thrombocytopenia, chronic, cause unknown. 4. Hypertension. 5. Diarrhea. 6. Hyperalbuminemia. 7. Morbid obesity. 8. Hypocalcemia. PLAN AND DISCUSSION: I am gratified that her chest tube output is much less than it was a couple of days ago. Furthermore, her urine output is better. I did add Aldactone yesterday. There is no evidence of steatohepatitis on the ultrasound. I will go over it however with Dr. Griffiths. She remains on Rocephin. Hopefully, her chest tube output will be small enough tomorrow that I will be able to remove her chest tube.
[2017-08-12 16:00] VITALS: BP 119/58
[2017-08-12 20:00] VITALS: BP 129/60
[2017-08-12] MEDS: cefTRIAXone SOD 2 GM in D5W 50 ML IV SCH (21:27)
[2017-08-12] MEDS: PERCOCET 5MG/325MG TAB PO PRN (21:28)
[2017-08-12 23:59] VITALS: BP 117/59
[2017-08-13] MEDS: LEVALBUTEROL 1.25 MG/0.5 ML CONCENTRATE NEB NEB SCH ×4 (02:00→20:00)
[2017-08-13 04:00] VITALS: BP 134/64
[2017-08-13] MEDS: SLF 3 ML SYR IV SCH ×3 (05:36→21:11)
[2017-08-13 08:00] VITALS: BP 116/58
[2017-08-13] MEDS: VITAMIN E 400 INTERNATIONAL UNITS CAP PO SCH (08:43)
[2017-08-13] MEDS: MOM 30ML SUSPENSION UDC PO SCH (08:43)
[2017-08-13] MEDS: VITAMIN D 1,000 INTERNATIONAL UNITS TABLET PO SCH (08:44)
[2017-08-13] MEDS: DOCUSATE SODIUM 100 MG CAP PO SCH ×2 (08:44→20:13)
[2017-08-13] MEDS: LOSARTAN 50 MG TAB PO SCH (08:45)
[2017-08-13] MEDS: NADOLOL 20MG TABLET PO SCH ×2 (08:46→20:13)
[2017-08-13] MEDS: PANTOPRAZOLE 40MG TAB (PROTONIX) PO SCH (08:46)
[2017-08-13] MEDS: ASCORBIC ACID 500 MG TAB PO SCH (08:47)
[2017-08-13] MEDS: FUROSEMIDE 40 MG/4 ML VIAL (J1940) IV SCH ×2 (08:48→20:13)
[2017-08-13] MEDS: SPIRONOLACTONE 25 MG TAB PO SCH (08:48)
[2017-08-13] MEDS: CALCIUM/VITAMIN D 500 MG TAB PO SCH ×2 (08:48→20:12)
--- NOTE | 2017-08-13 09:16 | REP ---
PA and PA and lateral chest: Comparison is 08/12/2017. There is an infiltrate above the dome of the right hemidiaphragm, unchanged. There is a small right pleural effusion, unchanged. There is a tiny volume of fluid in the minor fissure, unchanged. The right thoracotomy tube is unchanged. No definite pneumothorax is identified on the study today. Left lung is clear. Cardiac size is normal. Signed by Larry Griffiths MD 08/13/2017 09:08 A
[2017-08-13] MEDS: VITAMIN A 10,000 INTERNATIONAL UNITS CAP PO SCH (09:49)
[2017-08-13 12:00] VITALS: BP 133/62
--- NOTE | 2017-08-13 13:59 | IPN ---
DATE: 08/13/2017 Ms. Villalobos has had a nearly pain-free night. She is breathing well and is in good spirits. Her vital signs show a maximum temperature (t-max) of 98.9 with a heart rate that ranges between 62 and 59 in a sinus rhythm, respiratory rate of 16 to 18 without the use of accessory muscles, who is 95 to 97% saturated on room air and whose blood pressure is ranging between 116/50 to 134/64. Her intake and output over the past 24 hours has been recorded as 1620 in and 1950 out for a negativity of 330 mL. She has only put out 100 mL from the chest tube and there is no air leak. Weight today is 104.6 kg compared to 105.5 kg yesterday. PHYSICAL EXAMINATION: LUNGS: She has some faint crackles in the right lower lobe during late inspiration. Percussion note is full to the diaphragm. CARDIAC EXAM: Without murmurs, clicks, gallops or rubs. I cannot feel her point of maximum impulse (PMI). S1, S2 are normal. ABDOMEN: Soft, nontender. Bowel sounds positive. There is no hepatomegaly. No costovertebral angle tenderness. EXTREMITIES: Trace pretibial edema. No calf tenderness. No differential swelling of the upper extremities. SKIN: Warm, dry and perfused without cyanosis or mottling, including that of the nail beds and knees. NECK: Supple. There is no jugular venous distention. No subcutaneous emphysema. Trachea is midline. MOUTH: Shows her mucous membranes to be pink and moist. Lips and commissures without lesions. There is no thrush. EYES: Show her pupils to be equal and reactive. Extraocular motion intact. Sclerae anicteric. NEUROLOGIC: Shows II through XII intact with gross motor and gross sensation intact. Gait is not tested. PSYCHIATRIC: Shows her to be awake and alert, oriented times three with appropriate mood and affect and conversational. Her white count is down to 6.0 with hemoglobin and hematocrit of 8.8 and 28.1, unchanged from yesterday. Platelet count is 83 and stable with a differential that shows 65% neutrophils, 4% lymphocytes, 14% monocytes. There are no immature forms and no toxic granulations. Electrolytes are normal with a BUN and creatinine of 19 and 0.5 and a glucose of 94. Her chest x-ray today shows her lung fully expanded to the chest wall. There is still a posterior infiltrate in the lower hemithorax. IMPRESSION: 1. Right sided empyema. 2. Community acquired pneumonia growing Streptococcus C. 3. Thrombocytopenia, chronic, cause unknown. 4. Hypertension. 5. Diarrhea, controlled. 6. Hyperalbuminemia. 7. Morbid obesity. 8. Hypocalcemia. PLAN AND DISCUSSION: I will remove her chest tubes today. If all goes well tomorrow, we will plan to send her home. I will leave the choice of home antibiotics up to the medical service.
--- NOTE | 2017-08-13 15:49 | IPN ---
DATE: 08/13/2017 SUBJECTIVE: Ms. Villalobos is feeling better this morning. She had her chest tube removed. She is much more comfortable. She is breathing easily. No complaints of chest pain, shortness of breath. OBJECTIVE: VITAL SIGNS: Temperature is 97.9, pulse 69, respiratory rate 18, blood pressure 116/58, 95% on room air. INTAKE AND OUTPUT: Notable for negative fluid status minus 330. No bowel movement yesterday. Body mass index (BMI) 39.6. GENERAL: She is awake, appropriately interactive. LUNGS: Breathing is symmetrical. Some bronchial breath sounds left and the right. HEART: Distant sounding normal S1, S2. ABDOMEN: Soft, doughy, nontender. LABORATORY DATA: White cell count six, hemoglobin 8.8, trending slightly downward, and platelets are 83. BUN 19, creatinine 0.5. ASSESSMENT: 1. A 67-year-old with empyema and pneumonia. Omnicef at the time of discharge, to continue for seven days to complete a course as an outpatient. 2. The patient has ongoing thrombocytopenia which is likely chronic. She has splenomegaly, elevated coagulation studies and decreased protein, likely cirrhosis. May benefit from liver biopsy as an outpatient. 3. The patient has hypertension which is well controlled.
[2017-08-13 16:00] VITALS: BP 130/66
[2017-08-13 20:00] VITALS: BP 142/65
[2017-08-13] MEDS: cefTRIAXone SOD 2 GM in D5W 50 ML IV SCH (21:11)
[2017-08-14] VITALS: BP 137/65
[2017-08-14] MEDS: LEVALBUTEROL 1.25 MG/0.5 ML CONCENTRATE NEB NEB SCH ×2 (02:00→08:00)
[2017-08-14 04:00] VITALS: BP 142/64
[2017-08-14] MEDS: SLF 3 ML SYR IV SCH (04:50)
[2017-08-14 08:00] VITALS: BP 133/67
--- NOTE | 2017-08-14 08:12 | REP ---
Chest two views HISTORY: pleural effusion Comparison: 08/13/2017 Increased density is present in the right lower lobe consistent with an infiltrate unchanged compared to the previous study. The left lung is clear. A small right pleural effusion is present. The patient is status post right chest tube removal. There is no pneumothorax. The heart is normal in size. The pulmonary vasculature is normal in appearance. The bony structure is intact. IMPRESSION: 1. Right lower lobe infiltrate unchanged compared to the previous study. 2. Small right pleural effusion unchanged compared to the previous study. 3. The patient is status post right chest tube removal. There is no pneumothorax. Signed by Minh Hamilton MD 08/14/2017 08:03 A
[2017-08-14] MEDS: FUROSEMIDE 40 MG/4 ML VIAL (J1940) IV SCH ×2 (09:00→09:03)
[2017-08-14] MEDS: MOM 30ML SUSPENSION UDC PO SCH (09:00)
[2017-08-14] MEDS: VITAMIN A 10,000 INTERNATIONAL UNITS CAP PO SCH (09:03)
[2017-08-14] MEDS: PANTOPRAZOLE 40MG TAB (PROTONIX) PO SCH (09:03)
[2017-08-14 09:04] VITALS: BP 133/67
[2017-08-14] MEDS: DOCUSATE SODIUM 100 MG CAP PO SCH (09:04)
[2017-08-14] MEDS: LOSARTAN 50 MG TAB PO SCH (09:04)
[2017-08-14] MEDS: NADOLOL 20MG TABLET PO SCH (09:04)
[2017-08-14] MEDS: ASCORBIC ACID 500 MG TAB PO SCH (09:04)
[2017-08-14] MEDS: VITAMIN E 400 INTERNATIONAL UNITS CAP PO SCH (09:04)
[2017-08-14] MEDS: VITAMIN D 1,000 INTERNATIONAL UNITS TABLET PO SCH (09:04)
[2017-08-14] MEDS: SPIRONOLACTONE 25 MG TAB PO SCH (09:04)
[2017-08-14] MEDS: CALCIUM/VITAMIN D 500 MG TAB PO SCH (09:05)
[2017-08-14 09:46] LABS: BASO # 0.1 10^3/uL (0.0-0.2); BASO % 0.6 % (0.0-1.0); EOS # 0.2 10^3/uL (0.0-0.50); EOS % 2.9 % (0.0-3.0); IMMATURE GRANULOCYTE % 0.4 % (0-0); LYMPH # 0.8 10^3/uL (1.5-4.5); LYMPH % 10.5 % (24.0-44.0); MEAN CORPUSCULAR HEMOGLOBIN 25.1 pg (27.0-33.0); MEAN CORPUSCULAR HGB CONC 31.1 g/dl (32.0-36.5); MEAN CORPUSCULAR VOLUME 80.7 fl (80.0-96.0); MONO # 0.9 10^3/uL (0.0-0.8); MONO % 11.3 % (0.0-5.0); NEUTROPHILS # 5.7 10^3/uL (1.8-7.7); NEUTROPHILS % 74.3 % (36.0-66.0); PLATELET COUNT, AUTOMATED 124 10^3/uL (150-450); WHITE BLOOD COUNT 7.7 10^3/uL (4.0-10.0)
[2017-08-14 09:48] LABS: ADD MANUAL DIFFER NO; DIFF SLIDE NUMBER 122
[2017-08-14] MEDS ORDERED: LASI40TA PO (09:49)
[2017-08-14] MEDS ORDERED: CEFD1CAP8 PO (09:49)
[2017-08-14] MEDS ORDERED: FEOS200T2 PO (09:49)
[2017-08-14 10:03] LABS: ANION GAP 3 MEQ/L (8-16); BLOOD UREA NITROGEN 16 MG/DL (7-18); CALCIUM LEVEL 8.2 MG/DL (8.8-10.2); CARBON DIOXIDE LEVEL 37 MEQ/L (21-32); CHLORIDE LEVEL 98 MEQ/L (98-107); CREATININE FOR GFR 0.58 MG/DL (0.55-1.02); GLOMERULAR FILTRATION RATE > 60.0 (>45); GLUCOSE, FASTING 99 MG/DL (80-110); POTASSIUM SERUM 4.5 MEQ/L (3.5-5.1); SODIUM LEVEL 138 MEQ/L (136-145)
--- NOTE | 2017-08-14 14:02 | IPN ---
DATE OF SERVICE: 08/14/2017 Mrs. Springer chest tube was removed yesterday. She is doing quite well, and I believe that she is ready for discharge. The pain is being well controlled at the prior chest tube insertion site. Her vital signs show a maximum temperature (Tmax) of 98.5 with a heart rate that ranges between 60 and 82 in a sinus rhythm, respiratory rate that is constant at 18, who is 96% saturated on room air, and whose blood pressure is ranging between 142/64 to 133/67. Her intake and output over the past 24 hours has been recorded as 1800 in and 3150 out for a negativity of 1350 mL. She weighs 102.5 kg today compared to 104.6 kg yesterday. On physical examination she still has some faint rales and crackles in the right lower hemithorax. Percussion note is full to the diaphragm. CARDIAC EXAMINATION: Is without murmurs, clicks, gallops, or rubs. I cannot feel her point of maximum impulse (PMI). S1 and S2 are normal. ABDOMEN: Is soft and nontender. Bowel sounds are positive. There is no hepatomegaly. No costovertebral angle (CVA) tenderness. EXTREMITIES: Show trace to 1+ pretibial edema. No calf tenderness. No differential swelling of the upper extremities. SKIN: Is warm, dry, and perfused without cyanosis or mottling, including that of the nail beds and the knees. NECK: Is supple. There is no jugular venous distention. No subcutaneous emphysema. Trachea is midline. MOUTH: Shows her mucous membranes to be pink and moist. Lips and commissures without lesions. There is no thrush. EYES: Show her pupils to be equal and reactive. Extraocular motions are intact. Sclerae anicteric. NEUROLOGIC: Shows II-XII intact, along with gross motor and gross sensation intact. Gait is also intact. PSYCHIATRIC: Shows her to be awake and alert, oriented times three, with appropriate mood and affect and conversational. Her white count is 7.7, her hemoglobin and hematocrit of 10.4 and 33.4, respectively, which is increased from 8.8 and 28.1 yesterday, probably secondary to hemoconcentration. Platelet count is 124, which is the highest it has been since her admission. Differential shows 74% neutrophils, 10% lymphocytes, 11% monocytes. There are no immature forms and no toxic granulations. Her electrolytes are normal with a BUN and creatinine of 16 and 0.58, glucose of 99, and a calcium of 8.2. Her chest x-ray today shows her lung fully expanded to the chest wall. Costophrenic angles are sharp on the PA view. She still has an infiltrative consolidative process in the right lower hemithorax on the lateral film. IMPRESSION: 1. Right-sided empyema. 2. Community-acquired pneumonia, growing Streptococcus C. 3. Thrombocytopenia, improved today but cause unknown. 4. Hypertension. 5. Diarrhea, controlled. 6. Hyperalbuminemia. 7. Morbid obesity. 8. Hypocalcemia. PLAN AND DISCUSSION: I think that she is ready for discharge today. I think she was a little more septic than we thought she was. Thus, explaining the very high chest tube output. She is now being diuresed well with increase in her hemoglobin and hematocrit. I have spoken with Dr. Rouse of the hospitalist service, and we will send her home on cefdinir. I will also send her with some Lasix and iron. She will return to see me in 1 week in followup with a chest x-ray.
--- NOTE | 2017-08-14 14:34 | ECHO ---
DATE OF PROCEDURE: 08/13/2017 REFERRING PHYSICIAN: Dr. Shukri Rouse. INDICATION: Heart failure, unspecified. HEIGHT: 163 cm. WEIGHT: 106 kg. MEASUREMENTS: Left atrium: 3.3 cm Ventricular septum: 1.02 cm Posterior wall: 1.03 cm Left ventricle diastole: 4.8 cm Aortic root: 3.2 cm LVOT: 2.5 cm Inferior vena cava: 1.1 cm DOPPLER MEASUREMENTS: Aortic valve velocity: 168 cm/s LVOT velocity: 105 cm/s LVOT VTI: 22.4 cm Mitral E velocity: 83.4 cm/s Mitral A velocity: 64.2 cm/s Mitral deacceleration time: 215 ms Mild tricuspid regurgitation. Estimated right ventricular systolic pressure 20 mmHg assuming an atrial pressure of 5 mmHg. MITRAL ANNULAR TISSUE DOPPLER: E-prime septal: 7.9 cm/s E-prime lateral: 15.3 cm/s DESCRIPTION: Rhythm was sinus. Image quality was fair. This was a 2D, M-mode, color flow Doppler and pulsed wave examination and included mitral annular tissue Doppler. No pericardial effusion. CONCLUSIONS: 1. Normal left ventricle internal dimensions and wall thickness. Normal regional LV wall motion and wall thickening. Normal LV systolic function. Normal LV diastolic function. 2. Mild aortic valve sclerosis of a 3-cusp aortic valve. 3. Mild calcified atheroma involving the left sinus of Valsalva. 4. Otherwise normal echocardiogram Doppler.
--- NOTE | 2017-08-15 13:58 | DSES ---
DATE OF ADMISSION: 08/06/2017 DATE OF DISCHARGE: 08/14/2017 SPECIALISTS INVOLVED IN HER CARE: Dr. Dewitt. PROCEDURES PERFORMED DURING HER STAY: Placement chest tube. No complications during her stay. DISCHARGE DIAGNOSIS: Community acquired pneumonia with group C strep empyema. Splenomegaly. Thrombocytopenia. Hypertension. SUMMARY OF HER HOSPITALIZATION: This is a 67-year-old who presented with shortness of breath, right sided chest pain, found to have pneumonia, pleural effusion. Dr. eDwitt was called for chest tube placement. Effusion was drained. She had empyema, grew group C strep. She was treated with appropriate antibiotics, improved slowly. Did have an element of hypoalbuminemia possibly related to undiagnosed cirrhosis. Chest tube was eventually removed. She improved quickly from that point and was able to be discharged. On day of discharge, she was awake, alert, pleasant, easily conversant. Breathing without difficulty. Temperature 98, pulse 82, respiratory rate 18, blood pressure 133/67, 98% on room air. Breathing is symmetrical. I:E ratio is 1:3. Heart: Regular rate and rhythm. White count 7.7, hemoglobin 10.4, platelets of 124. Albumin 16, creatinine 0.58. DISCHARGE INSTRUCTIONS INCLUDE THE FOLLOWING: Followup with Dr. Dewitt within 1 week. Activity as tolerated. Diet as tolerated. It is okay to shower. MEDICATION AT TIME OF DISCHARGE INCLUDE: - Cefdinir 300 mg by mouth twice daily - iron supplement daily - Lasix 40 mg by mouth daily - morphine sulfate 15 mg by mouth twice daily as needed for pain, not to exceed 10 days use - vitamin E supplement as deemed clinically relevant - vitamin C supplement - vitamin D supplement - cinnamon as deemed clinically appropriate - fish oil 1000 mg by mouth daily - Losartan 100 mg by mouth daily - Nadolol 20 mg by mouth twice daily - vitamin A supplement
[2017-08-25 13:18] LABS: IMMATURE PLATELET FRACTION % 2.9 % (0.0-9.6)
== END 2017-08-14 11:26 | disposition home or self-care (01) | DRG 177 ==
LOC: M ED 16:19 → M ED INP 21:00 → M PCU 21:44
PROVIDERS: ADMIT Thoracic Surgery (Cardiothoracic Vascular Surgery); ATTEND Internal Medicine
PROC: 0W9930Z Drainage of Right Pleural Cavity with Drainage Device, Percutaneous Approach (ICD-10-PCS; principal; 2017-08-06)
DX: J86.9 Pyothorax without fistula (principal); J15.4 Pneumonia due to other streptococci; Z68.41 Body mass index [BMI] 40.0-44.9, adult; D69.6 Thrombocytopenia, unspecified; B95.4 Other streptococcus as the cause of diseases classified elsewhere; E83.51 Hypocalcemia; E66.01 Morbid (severe) obesity due to excess calories; I10 Essential (primary) hypertension; E88.09 Other disorders of plasma-protein metabolism, not elsewhere classified; Z79.899 Other long term (current) drug therapy; Z88.6 Allergy status to analgesic agent

== ENCOUNTER → 2017-08-06 | Outpatient (CLI) | payer MEDICARE ==
[~2017-08-06] MED LIST: CEFD1CAP8 PO; CINN500C9 PO; FEOS200T2 PO; FISH1000 PO; LASI40TA PO; LOSA100T36 PO; MS C15TA8 PO; NADO20TA PO; NATU400T PO; OMEP40CA2; VITA100087 PO; VITA200015 PO; VITA500T PO
--- NOTE | 2017-08-06 15:45 | REP ---
Right rib series three views: The study is suboptimal in that there are only three views and there are heavy costochondral calcification superimposing the ribs. No definite rib fracture is identified on the three views provided. However, CT would be more sensitive depending on clinical concerns. PA chest: Comparison is 05/22/2015. There is a small volume of fluid in the minor fissure on the right compatible with pleural effusion. The right hemidiaphragm is elevated to a greater extent than on the comparison study. There is tenting of the right hemidiaphragm suggestive of pleural adhesion. There is no pneumothorax. Cardiac size normal. Sonia, mediastinum are unremarkable. Left lung is clear. Impression: Right pleural effusion tracking into the minor fissure. Tenting of the right hemidiaphragm suggestive of pleural adhesion. No pneumothorax. Consider CT depending on degree of clinical concern. Signed by Larry Griffiths MD 08/06/2017 03:37 P
== END ==
LOC: M ADAMS 14:42
PROVIDERS: ATTEND Physician Assistant Medical
DX: R06.02 Shortness of breath (principal); S20.211A Contusion of right front wall of thorax, initial encounter; X58.XXXA Exposure to other specified factors, initial encounter; Y92.9 Unspecified place or not applicable; Y93.9 Activity, unspecified; Y99.9 Unspecified external cause status

== ENCOUNTER → 2017-08-23 | Outpatient (CLI) | payer MEDICARE ==
--- NOTE | 2017-08-23 10:56 | REP ---
CHEST X-RAY: Two views. HISTORY: Pleural effusion. Recent chest tube. COMPARISON CHEST X-RAY: August 14, 2017. FINDINGS: The lungs are symmetrically aerated and free of infiltrate. Right hemidiaphragm remains somewhat elevated unchanged. There is slight blunting of the posterior pleural angle again noted unchanged. There is a healing fracture of the anterior end of the right 3rd rib. Mild fissural thickening and lateral pleural thickening is seen unchanged. Left lung remains clear. IMPRESSION: Mild pleuroparenchymal changes. Healing right anterior 3rd rib fracture. Signed by Johann Huff MD 08/23/2017 01:18 P
== END ==
LOC: M SMT 09:34
PROVIDERS: ATTEND Thoracic Surgery (Cardiothoracic Vascular Surgery)
DX: J90 Pleural effusion, not elsewhere classified (principal)

== ENCOUNTER → 2018-08-19 | Outpatient (REF) | payer MEDICARE, OTHER ==
[2018-08-19 19:18] LABS: INR 1.11; PROTHROMBIN TIME 14.4 SECONDS (12.1-14.4)
[2018-08-19 19:32] LABS: ALPHA FETOPROTEIN TUMOR QUANT 3.7 NG/ML (<8.1)
[2018-08-22 10:48] LABS: HEPATITIS C VIRUS ABY INDEX < 0.0 INDEX (<0.8)
== END ==
LOC: M LAB REF 17:23
DX: K74.69 Other cirrhosis of liver (principal)
CPT/HCPCS: 86803

== ENCOUNTER → 2018-09-26 | Outpatient (REF) | payer MEDICARE, OTHER ==
[2018-09-26 18:27] LABS: PARTIAL THROMBOPLASTIN TIME 32.2 SECONDS (25.4-37.6)
== END ==
LOC: M LAB REF 16:52
DX: K74.60 Unspecified cirrhosis of liver (principal)
CPT/HCPCS: 85730

== ENCOUNTER → 2018-12-20 | Outpatient (REF) | payer MEDICARE, OTHER ==
[~2018-12-20] MED LIST changes: +CALC600T60 PO; +COEN400C2 PO; -LASI40TA PO; +LASI40TA9 PO; +LEVOTAB10 PO; -LOSA100T36 PO; +LOSA100T50 PO; +LOSA25TA14 PO; +SUCR1TAB56 PO; +TYLE325T5 PO; +[UNRECOGNIZED DRUG - OTHER] PO
[2018-12-20 20:56] LABS: C REACTIVE PROTEIN QUANTITATIV 6.29 MG/DL (0.00-0.30); PERCENT SATURATION 9.1 % (13.2-45.0)
== END ==
LOC: M LAB REF 17:30
PROVIDERS: ATTEND Internal Medicine
DX: K74.60 Unspecified cirrhosis of liver (principal); D64.9 Anemia, unspecified; R50.9 Fever, unspecified; R06.02 Shortness of breath

== ENCOUNTER 2018-12-23 11:01 | Inpatient (IN) | payer MEDICARE, OTHER ==
[~2018-12-23] VITALS: Ht 162.6 cm; Wt 98.7 kg
[~2018-12-23 11:01] MED LIST changes: -CALC600T60 PO; -COEN400C2 PO; -LEVOTAB10 PO; -LOSA25TA14 PO; -SUCR1TAB56 PO; -TYLE325T5 PO; -[UNRECOGNIZED DRUG - OTHER] PO
[2018-12-23] MEDS ORDERED: LOSA25TA14 PO (11:26)
[2018-12-23] MEDS ORDERED: CALC600T60 PO (11:26)
[2018-12-23] MEDS ORDERED: SUCR1TAB56 PO (11:26)
[2018-12-23] MEDS ORDERED: COEN400C2 PO (11:26)
[2018-12-23] MEDS ORDERED: [UNRECOGNIZED DRUG - OTHER] PO (11:26)
--- NOTE | 2018-12-23 12:19 | REP ---
CHEST, PORTABLE: AP portable view of the chest is performed and compared to prior chest radiographs performed at [facility] 12/20/2018. There is a large right pleural effusion with adjacent right middle and lower lobe atelectasis/infiltrate. Findings are similar to the recent study. Left lung is clear. Cardiomediastinal silhouette is unchanged. IMPRESSION: Large right effusion with adjacent right middle and lower lobe atelectasis/infiltrate. Electronically Signed by Larry Moyer MD 12/23/2018 01:44 P
[2018-12-23 12:24] LABS: BASO % 0.5 % (0.0-1.0); EOS # 0.1 10^3/uL (0.0-0.50); EOS % 2.9 % (0.0-3.0); HEMATOCRIT 35.1 % (36.0-47.0); HEMOGLOBIN 10.8 g/dl (12.0-15.5); LYMPH # 0.4 10^3/uL (1.5-4.5); LYMPH % 10.6 % (24.0-44.0); MEAN CORPUSCULAR HEMOGLOBIN 25.2 pg (27.0-33.0); MEAN CORPUSCULAR HGB CONC 30.8 g/dl (32.0-36.5); MONO # 0.5 10^3/uL (0.0-0.8); NEUTROPHILS # 3.1 10^3/uL (1.8-7.7); NEUTROPHILS % 73.3 % (36.0-66.0); PLATELET COUNT, AUTOMATED 120 10^3/uL (150-450); RED BLOOD COUNT 4.28 10^6/uL (4.00-5.40); WHITE BLOOD COUNT 4.2 10^3/uL (4.0-10.0)
[2018-12-23 12:59] LABS: ALT/SGPT 22 U/L (12-78); BLOOD UREA NITROGEN 9 MG/DL (7-18); CARBON DIOXIDE LEVEL 33 MEQ/L (21-32); CHLORIDE LEVEL 103 MEQ/L (98-107); CK-MB VALUE MASS < 1.0 NG/ML (<3.6); CPK CREATINE PHOSPHOKINASE 71 U/L (26-192); CREATININE FOR GFR 0.44 MG/DL (0.55-1.30); GLOMERULAR FILTRATION RATE > 60.0 (>45); GLUCOSE, FASTING 91 MG/DL (70-100); POTASSIUM SERUM 4.1 MEQ/L (3.5-5.1); SODIUM LEVEL 141 MEQ/L (136-145)
[2018-12-23 13:00] LABS: ALBUMIN 2.7 GM/DL (3.2-5.2); BILIRUBIN,DIRECT 0.2 MG/DL (0.0-0.2); BILIRUBIN,TOTAL 0.7 MG/DL (0.2-1.0); MB/CK RELATIVE INDEX 1.41 (< OR =4); NT-PRO BNP 161 PG/ML (<125); TROPONIN I < 0.02 NG/ML (< 0.10)
--- NOTE | 2018-12-23 13:18 | ECGEPIP ---
Stationary ECG Study [facility] - ED Test Date: 2018-12-23 Pat Name: OSVALDO URBAN Department: Room: - Gender: F Ssn/Ssbn Assistant Navigator: JKalen : [id number] Requested By: Justin Strong Order Number: [id number] Reading MD: Bonny Pitts Measurements Intervals [place] Rate: 62 P: 10 AK: 179 QRS: -11 QRSD: 100 T: 8 QT: 394 QTc: 400 Interpretive Statements SINUS RHYTHM MINIMAL VOLTAGE CRITERIA FOR LVH, CONSIDER NORMAL VARIANT PRWP NO PRIOR FOR COMPARISON Electronically Signed On 12-23-2018 13:18:37 EST by Bonny Pitts
[2018-12-23] MEDS ORDERED: KCL 20MEQ IN D5/NS 1000ML 1,000 ML IV SCH (13:50)
[2018-12-23] MEDS ORDERED: PERCOCET 5MG/325MG TAB PO PRN ×2 (14:00)
[2018-12-23] MEDS ORDERED: ACETAMINOPHEN TAB 650MG DOSE (2X325MG) PO PRN (14:00)
[2018-12-23] MEDS: LEVALBUTEROL 1.25 MG/0.5 ML CONCENTRATE NEB NEB SCH ×2 (14:00→20:13)
[2018-12-23] MEDS ORDERED: ONDANSETRON 4MG/2ML VIAL (J2405) IV PRN (14:00)
[2018-12-23] MEDS ORDERED: BISACODYL 10 MG SUPP PR PRN (14:00)
[2018-12-23] MEDS ORDERED: NORCO, ANEXSIA 5/325MG TABLET (HYDROcodone/ACETAMINOPHEN) PO PRN (14:00)
[2018-12-23] MEDS ORDERED: LEVALBUTEROL 1.25 MG/0.5 ML CONCENTRATE NEB NEB PRN (14:00)
[2018-12-23] MEDS ORDERED: TYLE325T5 PO (14:05)
[2018-12-23] MEDS ORDERED: LEVOTAB10 PO (14:05)
--- NOTE | 2018-12-23 14:33 | HPEPDOC ---
[facility] Medical History & Physical Date of Admission Dec 23, 2018 History and Physical ATTENDING: Dr. Longoria PCP: Dr Forte [facility] Dr Candelario CC: SOB HPI: 68yoF who was referred to the ED as per PCP for admission related to "fluid in the lungs". The pt was found to have Lg Rt pleural effusion and admission was arranged, Dr Dewitt consulted. Chest Tube pending as pre Dr Dewitt. The pt reports increasing SOB, cough which has been non productive. Denies any fevers, chills, weakness, fatigue, DAVIS, CP, palpitations, abdominal pain, N/V/D or changes in bowel or bladder habits. Upon presentation to the hospital the patient was found to have Pleural effusion, thus the hospitalist team was consulted. PMHx: GERD. Dr Candelario. HTN H/O pneumonia 08/01. PSHX: C section SOCHX: Resides in: [facility] Tobacco use: denies ETOH: denies Illicit Drugs: Denies Recent travel: denies Advanced directives: denies FAMHX: Children: Dtr Alive, well ROS: As noted in HPI, otherwise 11pt ROS of systems reviewed and unremarkable. PE: GEN: 68yoF, appears stated age. No acute distress. Alert and oriented x 3. Pl easant, interactive. HEENT: Normocephalic, atraumatic. Pupils are equal, round, and reactive to lig ht. Extraocular movements are intact. No nystagmus appreciated. Sclera are nonicteric. Conjunctiva without injection. Nose midline. Nasal turbinates without bogginess. EACs both patent BL. TMs both visualized and moyer with good cone of light, no bulging or erythema. No facial asymmetry. Moist mucous membranes. Dentition fair. Pharynx pink and moist, no cobblestoning. Neck supple, trachea midline. No lymphadenopathy or thyromegaly appreciated. CHEST: Regular rate and rhythm, +S1, +S2 LUNGS: decreased BS Rt side with insp rales noted. Good A/E Lt. No wheezes, or rhonchi. Breathing appears symmetric and easy. Patient is speaking in full sentences. No accessory muscle use. ABD: Round, soft, non-tender, non-distended. +Bowel sounds throughout. No rebound or guarding. No costovertebral angle tenderness. EXT: Pulses 2+ bilaterally dorsalis pedis and radial. No lower extremity edema appreciated. SKIN: [place], dry, warm. Capillary refill <2sec. No rashes. NEURO: Alert and oriented x 3. Cranial nerves III-XII are intact. No focal deficits appreciated. CXR: Large right effusion with adjacent right middle and lower lobe atelectasis/infiltrate. Electronically Signed by Larry Moyer MD 12/23/2018 01:44 P EKG: SINUS RHYTHM MINIMAL VOLTAGE CRITERIA FOR LVH, CONSIDER NORMAL VARIANT PRWP NO PRIOR FOR COMPARISON Electronically Signed On 12-23-2018 13:18:37 EST by Bonny Pitts A&P: 68yoF who was referred to the ED as per PCP for admission related to "fluid in the lungs". The pt was found to have Lg Rt pleural effusion and admission was arranged, Dr Dewitt consulted. Chest Tube pending as pre Dr Dewitt. 1. The patient will be admitted to PCU for at least [address] Ventura's service. Pt is reviewed and examined as per Dr Longoria. 2. Rt Pleural effusion Afebrile HR62 BP143/63 O2 sat 97%RA LA 1.1 [id number] as per Dr Dewitt. Chest tube pending. Pleural fluid testing pending. Supplemental O2 Duo Nebs pain control Bowel care IVF at 75cc/hr. ABG pending BC x 2 pending. SC pending. Discussed with Dr Dewitt, add IV Rocephin/Zmax. Monitor. 3. HTN. Nadolol with hold parameters. 4. GERD. Continue Protonix. 5. Anemia/Thrombocytopenia. Appears to be at baseline. Add Fe studies, B12, folate. Peripheral smear. Monitor labs. DVT prophylaxis. SQ Heparin. The patient is a Full Code Vital Signs Vital Signs Date Time Temp Pulse Resp B/P (MAP) Pulse Ox O2 Delivery O2 Flow Rate FiO2 12/23/18 13:45 62 143/63 (89) 97 Room Air 12/23/18 11:02 97.9 17 Laboratory Data Labs 24H Laboratory Tests 2 12/23/18 12:01: Immature Granulocyte % (Auto) 0.7, White Blood Count 4.2, Red Blood Count 4.28, Hemoglobin 10.8L, Hematocrit 35.1L, Mean Corpuscular Volume 82.0, Mean Corpuscular Hemoglobin 25.2L, Mean Corpuscular Hemoglobin Concent 30.8L, Red Cell Distribution Width 14.8H, Platelet Count 120L, Neutrophils (%) (Auto) 73.3H, Lymphocytes (%) (Auto) 10.6L, Monocytes (%) (Auto) 12.0H, Eosinophils (%) (Auto) 2.9, Basophils (%) (Auto) 0.5, Neutrophils # (Auto) 3.1, Lymphocytes # (Auto) 0.4L, Monocytes # (Auto) 0.5, Eosinophils # (Auto) 0.1, Basophils # (Auto) 0.0, Nucleated Red Blood Cells % (auto) 0.0, Anion Gap 5L, Glomerular Filtration Rate > 60.0, Lactic Acid Level 1.1, Calcium Level 8.0L, Aspartate Amino Transf (AST/SGOT) 40H, Alanine Aminotransferase (ALT/SGPT) 22, Alkaline Phosphatase 105, Total Bilirubin 0.7, Direct Bilirubin 0.2, Total Creatine Kinase 71, Creatine Kinase MB < 1.0, Creatine Kinase MB Relative Index 1.41, T roponin I < 0.02, WG-Slf-M-Type Natriuretic Peptide 161H, Total Protein 6.0L, Albumin 2.7L, Albumin/Globulin Ratio 0.82L CBC/BMP Laboratory Tests 12/23/18 12:01 Red Blood Count 4.28, Mean Corpuscular Volume 82.0, Mean Corpuscular Hemoglobin 25.2 L, Mean Corpuscular Hemoglobin Concent 30.8 L, Red Cell Distribution Width 14.8 H, Neutrophils (%) (Auto) 73.3 H, Lymphocytes (%) (Auto) 10.6 L, Monocytes (%) (Auto) 12.0 H, Eosinophils (%) (Auto) 2.9, Basophils (%) (Auto) 0.5, Neutr ophils # (Auto) 3.1, Lymphocytes # (Auto) 0.4 L, Monocytes # (Auto) 0.5, Eosinophils # (Auto) 0.1, Basophils # (Auto) 0.0 Microbiology Microbiology 12/23/18 Blood Culture, Received Pending 12/23/18 Blood Culture, Received Pending Home Medications Scheduled Alpha Tocopheryl Acid Succinat (Vitamin E) 400 Unit Tab, 1,200 UNITS PO QHS Ascorbic Acid (Vitamin C) 500 Mg Tab, 1,000 MG PO QHS Calcium Carbonate (Calcium) 600 Mg Tab, 1,200 MG PO QHS Cholecalciferol (Vitamin D) 2,000 Unit Tab, 2,000 UNIT PO QHS Cinnamon Bark (Cinnamon) 500 Mg Cap, 1,000 MG PO QHS Coenzyme Q10 (Coq10) 400 Mg Cap, 400 MG PO QHS Losartan Potassium (Losartan Potassium) 25 Mg Tab, 25 MG PO QHS Nadolol (Nadolol) 20 Mg Tab, 20 MG PO BID Sucralfate (Sucralfate) 1 Gm Tab, 1 GRAM PO BID Vitamin A (Vitamin A) 10,000 Unit Tab, 20,000 UNIT PO QHS VERIFIED [sulfurzyme] , 2 TAB PO QHS Scheduled PRN Acetaminophen (Tylenol) 325 Mg Tab, 650 MG PO Q4H PRN for PAIN Levocetirizine Hydrochloride (Levocetirizine Dihydrochl) 5 Mg Tab, 5 MG PO DAILY PRN for RUNNY NOSE Allergies Coded Allergies: Aspirin (Verified Allergy, Unknown, 08/07/17) PT TOLERATES TORADOL. Rose Moreau Dec 23, 2018 14:33
[2018-12-23] MEDS: KETOROLAC 30 MG/ML VIAL (J1885) IV SCH ×2 (15:00→21:54)
[2018-12-23 15:06] LABS: FERRITIN 67 NG/ML (8-252); IRON (FE) 44 UG/DL (50-170); PERCENT SATURATION 13.9 % (13.2-45.0); TOTAL IRON BINDING CAPACITY 317 UG/DL (250-450)
[2018-12-23 15:23] LABS: FOLATE 18.6 NG/ML (>5.4)
[2018-12-23 15:54] LABS: APPEARANCE, BODY FLUID CLOUDY (CLEAR); PLEURAL FL COLOR YELLOW (COLORLESS); SOURCE, BODY FLUID PLEURAL
[2018-12-23 15:59] LABS: SOURCE, BODY FLUID pH PLEURAL
[2018-12-23 16:00] LABS: PH BODY FLUID > 7.800 UNITS (NOT ESTABLISHED)
[2018-12-23] MEDS ORDERED: cefTRIAXone SOD 1 GM in D5W MINI-BAG PLUS 50 ML IV SCH (16:00)
[2018-12-23 16:27] LABS: ABG BASE EXCESS 4.6 (-2.0-2.0); ABG HCO3 28.9 MEQ/L (22.0-26.0); ABG O2 SATURATION 98.7 % (95.0-99.0); ABG PARTIAL PRESSURE CO2 42.3 mmHg (35.0-45.0); ABG PARTIAL PRESSURE O2 131.8 mmHg (75.0-100.0); ABG STANDARD HCO3 28.6 MEQ/L (22.0-26.0); ABG TOTAL CO2 30.2 MEQ/L (23.0-31.0); ABG pH (ARTERIAL) 7.453 UNITS (7.350-7.450)
[2018-12-23 16:29] LABS: AMYLASE, BODY FLUID 26 U/L (NOT ESTABLISHED); CHOLESTEROL, BODY FLUID < 50 MG/DL (NOT ESTABLISHED); LDH, BODY FLUID 36 U/L (NOT ESTABLISHED); SOURCE, BODY FLUID ALBUMIN PLEURAL; SOURCE, BODY FLUID AMYLASE PLEURAL; SOURCE, BODY FLUID CHOL PLEURAL; SOURCE, BODY FLUID GLUCOSE PLEURAL; SOURCE, BODY FLUID LDH PLEURAL; SOURCE, BODY FLUID TOT PROTEIN PLEURAL; SOURCE, BODY FLUID TRIG PLEURAL; TRIGLYCERIDE, BODY FLUID 20 MG/DL (NOT ESTABLISHED)
--- NOTE | 2018-12-23 16:41 | CR ---
DATE OF CONSULTATION: 12/23/2018 Patient seen at the request of the hospitalist service and by Dr. Mena in the emergency room for pleural effusion with increasing shortness of breath. HISTORY OF PRESENT ILLNESS: Patient is a 68-year-old white female who was admitted here July 2017 with a community acquired pneumonia on the right side accompanied by parapneumonic effusion. It was at that point loculated. She did well after that admission but however about 2 weeks ago started to notice back pain in her right side in her posterior chest. This was not exacerbated by deep breathing. She however has noticed that she has been more increasingly short of breath but only slightly over the last 2 weeks. She denies fevers, chills or sweats. Other than the posterior chest pain there is certainly no anginal chest pain. She has had a slight cough but it has been nonproductive. There is no dysphagia. She has noticed that her weight has gone up over the last 2 weeks. She has also noticed increased peripheral edema. A CT scan obtained yesterday at [facility] showed her to have a compressed right lower lobe with a surrounding effusion. PAST MEDICAL HISTORY: Hypertension, gastroesophageal reflux disease, prior diarrhea. Denies diabetes or heart disease. PAST SURGICAL HISTORY: and repair of a quadriceps rupture in 1999. ALLERGIES: Aspirin. MEDICATIONS AT HOME: Losartan 100 mg daily, Nadolol 20 mg twice a day along with supplements of fish oil and various vitamins. TRAVEL HISTORY: She has been to [place] about 4 years. There is no travel to the [facility] or foreign travel. EXPOSURES: No exposure to tuberculosis. She has 2 dogs, a cocker spaniel and a lab barros mix. There are no birds or cats. 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 She has not had any asbestos exposure. HABITS: She does not smoke, she does not drink and there are no illicit drugs. REVIEW OF SYSTEMS: CONSTITUTIONAL: See history of present illness. She is morbidly obese. EYES: Without diplopia, without amaurosis fugax, without prior jaundice. MOUTH: Has upper dentures. RESPIRATORY: See HPI. CARDIAC: See HPI, without orthopnea or paroxysmal nocturnal dyspnea. She has noticed some leg swelling. No history or prior myocardial infarctions and no tachycardia or palpitations. GI: Without nausea, vomiting or constipation. Does have diarrhea. No hematemesis, melena, hematochezia or abdominal pain. : Without dysuria, hematuria, or history of renal stones. LYMPHATICS: Without lumps, bumps. HEMATOLOGIC: Without prolonged bleeding times although she was noted on last admission to be most likely pancytopenic. NEUROLOGIC: Without paresthesias, paralysis, or prior seizures. PSYCHIATRIC: Without pathologic depression, psychosis or anxiety. PHYSICAL EXAMINATION: VITAL SIGNS: Temperature is 97.8, heart rate 65 in a sinus rhythm, respiratory rate of 16 without the use of accessory muscles who is 97% saturated on room air and blood pressure is 137/63. EYES: Pupils are equal, round, and reactive to light. Extraocular muscles intact. Sclerae nonicteric. Nose: Without deformity. Mouth shows her mucous membranes to be pink and moist. Lips and commissures without lesions. There is no thrush. Upper dentures in place. Head is normocephalic. Neck is supple. There is no jugular venous distention. There is no subcutaneous emphysema. Trachea is midline. There is no lymphadenopathy. She has 2+ carotid pulses without bruits and there is no thyromegaly. Lungs: Decreased breath sounds in the right lower hemithorax along with a dull percussion note. There is E to A egophony about a quarter in quality in the right lower hemithorax. No to E to A egophony on the left side but I do hear transmitted breath sounds at the left base. Cardiac exam: Without murmurs, clicks or gallops. I can not feel her PMI. S1 and S2 are normal. Abdomen: Soft and nontender. Bowel sounds are positive. There is no hepatomegaly and no CVA tenderness. Extremities: Show 1+ pretibial edema. No calf tenderness. No differential swelling of the upper extremities. Skin is cool but dry and perfused. There is no cyanosis or mottling, including that of the nail beds and the knees. Psychiatric: Shows her to be awake, alert and oriented times three with appropriate mood and affect. Neurologic: Shows II-XII grossly intact as is gross motor and gross sensation intact. Gait is not tested. INVESTIGATIONS: White count is 4.2 with a hemoglobin and hematocrit of 10.8 and 35.1 and a platelet count of 120. Her platelet count is usually in the 70-80 range. Her last platelet count on 11/25/2017 was 76. Differential shows 70% neutrophils,10% lymphocytes, 12% monocytes. No immature forms, no toxic granulations. Chemistries showed essentially normal electrolytes with marginally high total C02 and a BUN and creatinine of 9 and 0.44. Glucose is 91 with a calcium of 8.0 and a corresponding albumin of 2.7. AST and NENITA show a marginally high AST of 40 with an ALT of 105. Troponin is less than 0.02. Her PTT is 32 seconds and her PT/INR on 08/19/2018 was 14.4 and 1.11. Her chest CT done at [facility] shows a moderate right side pleural effusion with lung compression of the lower and middle lobes. She has splenomegaly. She has a high-riding liver. I can not tell anything else underneath the pleural fusion. I do not see any emphysematous changes. We will get the CT scan tomorrow. IMPRESSION: 1. Right pleural effusion. 2. Compression or consolidation of right lower lobe. 3. Pancytopenia. 4. Gastroesophageal reflux disease. 5. Morbid obesity. 6. Mild anemia. 7. Hyperalbuminemia. 8. Hypertension. PLAN AND DISCUSSION: The hospitalist service will admit her. Presumptive diagnosis is an underlying pneumonia with a parapneumonic effusion and I will drain that. As she does have loculations on the CT scans, we will repeat the CT scan tomorrow to see if we have cleared all the loculations. If not, I will undertake a TPA pleurolysis. We will get a baseline arterial blood gas. I will leave it to the medical service to pick the antibiotic. She has no allergies to antibiotics. I suggest Rocephin along with Azithromycin. Rationale for Rocephin as it has better pleural penetration. We will obtain the usual cultures, hematology, cytology and chemistry on the pleural fluid. She is not producing sputum although I will call for a sputum culture.
--- NOTE | 2018-12-23 16:42 | REP ---
PORTABLE CHEST: AP portable view of the chest is performed. Comparison made with chest radiograph earlier today. There has been placement of a right chest tube. Right pleural effusion has significantly decreased. There is a small focal pneumothorax at the right costophrenic angle. There is mild adjacent right basilar parenchymal opacity. Remainder of the study is unchanged. Electronically Signed by Larry Moyer MD 12/23/2018 07:41 P
[2018-12-23] MEDS ORDERED: AZITHROMYCIN INJ 500 MG, VIAL MATE ADAPTER 1 EACH in D5W 250 ML IV SCH (17:00)
[2018-12-23] MEDS ORDERED: LIDOCAINE 1% MDV 20ML VIAL SC ONE (20:15)
[2018-12-23] MEDS ORDERED: MIDAZOLAM INJ 2 MG/2 ML VIAL (J2250) IV ONE ×3 (20:15)
[2018-12-23 20:25] VITALS: BP 156/72
[2018-12-23 20:27] VITALS: BP 156/72
[2018-12-23 20:44] LABS: LDH LACTATE DEHYDROGENASE 258 U/L (84-246)
[2018-12-23] MEDS: NADOLOL 20MG TABLET PO SCH (21:00)
[2018-12-23] MEDS: DOCUSATE SODIUM 100 MG CAP PO SCH (21:00)
[2018-12-23] MEDS: cefTRIAXone SOD 1 GM in D5W MINI-BAG PLUS 50 ML IV SCH (21:54)
[2018-12-23] MEDS: HEPARIN SOD (PORCINE) 5000 UNITS/ML VIAL SC SCH (21:54)
[2018-12-23] MEDS: AZITHROMYCIN INJ 500 MG, VIAL MATE ADAPTER 1 EACH in D5W 250 ML IV SCH (22:57)
[2018-12-24] VITALS: BP 110/50
[2018-12-24] MEDS: LEVALBUTEROL 1.25 MG/0.5 ML CONCENTRATE NEB NEB SCH ×4 (02:05→20:33)
[2018-12-24] MEDS: KETOROLAC 30 MG/ML VIAL (J1885) IV SCH ×5 (03:51→20:20)
[2018-12-24 04:00] VITALS: BP 153/69
[2018-12-24 05:34] LABS: BASO % 0.3 % (0.0-1.0); EOS # 0.1 10^3/uL (0.0-0.50); EOS % 2.6 % (0.0-3.0); HEMATOCRIT 30.9 % (36.0-47.0); HEMOGLOBIN 9.4 g/dl (12.0-15.5); LYMPH # 0.5 10^3/uL (1.5-4.5); LYMPH % 13.4 % (24.0-44.0); MEAN CORPUSCULAR HEMOGLOBIN 24.7 pg (27.0-33.0); MEAN CORPUSCULAR HGB CONC 30.4 g/dl (32.0-36.5); MEAN CORPUSCULAR VOLUME 81.3 fl (80.0-96.0); MONO # 0.5 10^3/uL (0.0-0.8); MONO % 12.1 % (0.0-5.0); NEUTROPHILS # 2.8 10^3/uL (1.8-7.7); NEUTROPHILS % 71.3 % (36.0-66.0); PLATELET COUNT, AUTOMATED 109 10^3/uL (150-450); WHITE BLOOD COUNT 3.9 10^3/uL (4.0-10.0)
[2018-12-24 06:02] LABS: BLOOD UREA NITROGEN 13 MG/DL (7-18); CARBON DIOXIDE LEVEL 31 MEQ/L (21-32); CHLORIDE LEVEL 105 MEQ/L (98-107); CREATININE FOR GFR 0.48 MG/DL (0.55-1.30); GLOMERULAR FILTRATION RATE > 60.0 (>45); GLUCOSE, FASTING 91 MG/DL (70-100); POTASSIUM SERUM 3.6 MEQ/L (3.5-5.1); SODIUM LEVEL 141 MEQ/L (136-145)
[2018-12-24 07:54] VITALS: BP 150/70
[2018-12-24] MEDS: DOCUSATE SODIUM 100 MG CAP PO SCH ×2 (08:46→20:20)
[2018-12-24] MEDS: MOM 30ML SUSPENSION UDC PO SCH (08:47)
[2018-12-24] MEDS: NADOLOL 20MG TABLET PO SCH ×2 (08:47→20:21)
[2018-12-24] MEDS: HEPARIN SOD (PORCINE) 5000 UNITS/ML VIAL SC SCH ×2 (08:47→20:20)
[2018-12-24] MEDS: PANTOPRAZOLE 40MG TAB (PROTONIX) PO SCH (08:47)
--- NOTE | 2018-12-24 09:19 | REPVR ---
EXAM: CT Chest Without Contrast EXAM DATE/TIME: 12/24/2018 7:20 AM CLINICAL HISTORY: 68 years old, female; Condition or disease; Other: Plueral effusion; Patient HX: Chest tube; Additional info: Status of pleural effusion TECHNIQUE: Axial computed tomography images of the chest without intravenous contrast. All CT scans at this facility use at least one of these dose optimization techniques: automated exposure control; mA and/or kV adjustment per patient size (includes targeted exams where dose is matched to clinical indication); or iterative reconstruction. Coronal and sagittal reformatted images were created and reviewed. MIP reconstructed images were created and reviewed. COMPARISON: CT Chest without contrast 08/10/2017 10:15 AM CR - Chest, 2 view PA, Lat 12/24/2018 6:59:13 AM FINDINGS: Limitations: Assessment of vascular structures, soft tissues, and organs is limited due to lack of IV contrast. Tubes, catheters and devices: Right chest tube in place. Lungs: No consolidation. No masses. Pleural space: Small right pneumothorax. Small right pleural effusion with adjacent atelectasis and/or infiltrate. There is an ovoid 4.2 x 3.0 cm structure within this pleural effusion (series 202, image 75), with central fluid and peripheral soft tissue density. Heart: No cardiomegaly. No pericardial effusion. Mediastinum: Small hiatal hernia. Aorta: No aneurysm in the included aorta. Lymph nodes: Unremarkable. No enlarged lymph nodes. Bones/joints: Mild degenerative changes in the spine. No acute fracture. Normal alignment. Soft tissues: Right lateral chest wall soft tissue emphysema. Liver: Nodular liver contours, consistent with hepatic cirrhosis. Gallbladder and bile ducts: Cholelithiasis. No gallbladder wall thickening or pericholecystic fluid. No biliary dilatation. Spleen: Splenomegaly. Upper abdomen: Mild elevation of the right hemidiaphragm. Upper abdominal varices. Intraperitoneal space: Small ascites. IMPRESSION: 1. Small right pleural effusion with adjacent atelectasis or infiltrate. Ovoid structure within this pleural effusion could be due to loculations, empyema, or malignancy. 2. Small right pneumothorax. Right chest tube in place. 3. Small ascites. 4. Nonacute/incidental findings above. Electronically signed by: Priyank Leon On 12/24/2018 09:18:51 AM
--- NOTE | 2018-12-24 10:18 | REP ---
CHEST, TWO VIEWS: Two views of the chest are performed and compared to a prior study 12/23/2018. Right chest tube is again seen, but it appears to be positioned more laterally in the right hemithorax compared to the prior chest radiograph. Sideport projects along the inner aspect of the right ribs. I do not see a definite pneumothorax. There is mild adjacent pleural fluid/thickening as well as mild right basilar atelectasis/infiltrate. Left lung remains clear. Cardiomediastinal silhouette is unchanged. Electronically Signed by Larry Moyer MD 12/24/2018 07:21 P
[2018-12-24 12:00] VITALS: BP 118/60
--- NOTE | 2018-12-24 12:18 | IPN ---
DATE: 12/24/2018 Ms. Villalobos is doing better today and breathing better today. Her pain is being well controlled at the chest tube insertion site and she does not remember the chest tube insertion. Her vital signs show a maximum temperature (t-max) of 98.1 with a heart rate that ranges between 67 and 60 in a sinus rhythm, respiratory rate of 18 to 20 without the use of accessory muscles who is 95% saturated on room air and whose blood pressure is ranging between 110/50 to 150/70. Her intake and output over the past 24 hours has been recorded as 1240 in and 1140 out. The output from the chest tube has been 900 mL since 12 midnight. She has over 1300 mL in the chest tube now. Her weight is pending. PHYSICAL EXAMINATION: LUNGS: Her lungs show transmitted breath sounds in the right lower base. There is no E-to-A egophony. Her percussion note is full to the diaphragm, as far as I could tell through her morbid obesity. CARDIAC EXAM: Without murmurs, clicks, gallops or rubs. I cannot feel her point of maximum impulse (PMI). S1, S2 are normal. ABDOMEN: Soft, nontender. Bowel sounds positive. There is no hepatomegaly. No costovertebral angle tenderness that I can detect under the obesity. EXTREMITIES: Show 1+ pretibial edema. No calf tenderness. No differential swelling of the upper extremities. SKIN: Warm, dry and perfused without cyanosis or mottling, including that of the nail beds and knees. NECK: Supple. There is no jugular venous distention. No subcutaneous emphysema. Trachea is midline. MOUTH: Shows her mucous membranes to be pink and moist. Lips and commissures without lesions. There is no thrush. EYES: Show her pupils to be equal and reactive. Extraocular motion intact. Sclerae anicteric. NEUROLOGIC: Shows II through XII intact with gross motor and gross sensation intact. Gait is not tested. PSYCHIATRIC: Shows her to be awake and alert, oriented times three with appropriate mood and affect and conversational. Nursing informed me that she walked to x-ray today. Her white count today is 3.9 with a hemoglobin and hematocrit of 9.4 and 30.9, probably secondary to hemodilution with a platelet count of 109. Differential shows 71% neutrophils, 13% lymphocytes, 12% monocytes. There are no immature forms, no toxic granulations. Blood gases yesterday showed a pH of 7.45, PO2 of 42 and a PCO2 of 131 on 2 liters nasal cannula with a base excess of 4.6. Chemistries today showed normal electrolytes with a total CO2 down to 31. BUN and creatinine are 13 and 0.40 and she remains on Toradol. Glucose is 91 with a calcium of 8.0. Her pleural fluid has been returned with a pH greater than 7.8 with a glucose of 100, LDH of 36 and a total protein of 1.0. She has 120 white cells, 80% of which are lymphocytic and 20% are PMNs. The appearance of the fluid was cloudy. Bacteriology showed no organisms on gram stain, final cultures are pending. This looks to be a lymphocytic transudative effusion and normoglycemic. Her chest x-ray today shows the lung reexpanded to the chest wall. There is an infiltrative process in the right lower lobe. This is seen both on the PA film and on the lateral film. The infiltrative process is posterior on the lateral film. Chest tube is in good place. Costophrenic angle is slightly blunted, but most filled with consolidative or infiltrative process. Chest CT done today without contrast shows a small residual pleural effusion. She has consolidation of the lower lobe lung segment. There are air bronchograms throughout it and it does not look to be a mass. I do not see any concerning mediastinal lymphadenopathy. She does have a large spleen. The resolution on the abdomen is not terrific; however, I do not see lumpy/bumpy contours of the liver. She does have gallstones. The left adrenal has a normal configuration, as does the right adrenal, albeit small. IMPRESSION: 1. Transudative lymphocytic pleural effusion. 2. Consolidation of right lower lobe lung segment, possibly a pneumonia. 3. Pancytopenia with accentuation of thrombocytopenia. 4. Gastroesophageal reflux disease. 5. Morbid obesity. 6. Mild anemia. 7. Hyperalbuminemia. 8. Hypertension. PLAN AND DISCUSSION: I am calling her a right lower lobe pneumonia with a resultant parapneumonic effusion, although I am on very shaky grounds. While she has an occasional dry, unproductive cough, she has had no fevers, chills, or sweats. She has been started at my request on Azithromycin and Rocephin for a community acquired pneumonia. The consolidation with the bronchograms almost all over the periphery does not look like a mass. She is a nonsmoker and does not have particular risk factors for underlying lung cancer. She may be immunosuppressant from pancytopenia and therefore is not presenting with the usual constitutional symptoms. Her liver functions yesterday were only mildly elevated with an AST of 40 with an upper limit of normal of 37 but with a normal ALT. She does have splenomegaly. While she is not a drinker, she could have mild cirrhosis with portal hypotension to increase the size of her spleen. Alternatively, this could be a manifestation of ITP. I would ask the medical service to consider a liver biopsy to look for fatty liver disease. As she has put so much out of the chest tube today, I will continue it, but I will discontinue the suction.
--- NOTE | 2018-12-24 13:35 | IPNPDOC ---
Text Note Date of Service The patient was seen on 12/24/18. NOTE Subjective: Patient seen and examined at bedside this morning. Talkative and in good spirits. No new medical complaints. States she is feeling much better today. Objective: General: NAD, lying comfortably in bed HEENT: NC/AT, EOMI Lungs: diminished breath sound RLL Abd: obese, soft, NT, +BS Ext: +1 peripheral edema Neuro: no gross focal deficits Psych: in good spirits, AAOx3 A/P: 68 yo female for shortness of breath, found to have large right pleural effusion: #SOB - multifactorial - pleural effusion/likely PNA with parapneumonic effusion - chest tube in place - follow as per thoracic surgery - assistance appreciated - fluid analysis appears transudative - continue with antimicrobial therapy - ceftriaxone/azithromycin - cultures pending #splenomegaly - uncertain etiology - she does state her digital recruiter told her she has "high blood pressure around her stomach" - continue with nadolol - previous liver US from 2017 was unrevealing - will obtain records from her PCP and GI #pancytopenia #HTN #GERD #DVT prophylaxis VS,Fishbone, I+O VS, Fishbone, I+O Laboratory Tests 12/24/18 05:03 Red Blood Count 3.80 L, Mean Corpuscular Volume 81.3, Mean Corpuscular Hemoglobin 24.7 L, Mean Corpuscular Hemoglobin Concent 30.4 L, Red Cell Distribution Width 14.6 H, Neutrophils (%) (Auto) 71.3 H, Lymphocytes (%) (Auto) 13.4 L, Monocytes (%) (Auto) 12.1 H, Eosinophils (%) (Auto) 2.6, Basophils (%) (Auto) 0.3, Neutrophils # (Auto) 2.8, Lymphocytes # (Auto) 0.5 L, Monocytes # (Auto) 0.5, Eosinophils # (Auto) 0.1, Basophils # (Auto) 0.0, Calcium Level 8.0 L Vital Signs Date Time Temp Pulse Resp B/P (MAP) Pulse Ox O2 Delivery O2 Flow Rate FiO2 12/24/18 08:47 63 150/70 12/24/18 07:54 98.1 18 96 12/23/18 14:00 Room Air I&O- Last 24 Hours up to 6 AM 12/24/18 06:00 Intake Total 1320 ml Output Total 240 ml Balance 1080 ml CHRISTEN ALDRIDGE MD Dec 24, 2018 13:35
[2018-12-24 16:00] VITALS: BP 144/69
[2018-12-24 20:00] VITALS: BP 143/66
[2018-12-24] MEDS: cefTRIAXone SOD 1 GM in D5W MINI-BAG PLUS 50 ML IV SCH (20:21)
[2018-12-24] MEDS: AZITHROMYCIN INJ 500 MG, VIAL MATE ADAPTER 1 EACH in D5W 250 ML IV SCH (21:48)
[2018-12-25] VITALS: BP 116/53
[2018-12-25] MEDS: LEVALBUTEROL 1.25 MG/0.5 ML CONCENTRATE NEB NEB SCH ×4 (00:59→19:47)
[2018-12-25] MEDS: KETOROLAC 30 MG/ML VIAL (J1885) IV SCH ×4 (03:02→20:39)
[2018-12-25 03:22] VITALS: BP 150/80
[2018-12-25 05:42] LABS: BASO % 0.5 % (0.0-1.0); EOS # 0.1 10^3/uL (0.0-0.50); EOS % 3.2 % (0.0-3.0); HEMATOCRIT 29.7 % (36.0-47.0); HEMOGLOBIN 9.2 g/dl (12.0-15.5); LYMPH # 0.6 10^3/uL (1.5-4.5); LYMPH % 15.5 % (24.0-44.0); MEAN CORPUSCULAR VOLUME 80.7 fl (80.0-96.0); MONO # 0.5 10^3/uL (0.0-0.8); MONO % 12.5 % (0.0-5.0); NEUTROPHILS # 2.6 10^3/uL (1.8-7.7); PLATELET COUNT, AUTOMATED 98 10^3/uL (150-450); RED BLOOD COUNT 3.68 10^6/uL (4.00-5.40); WHITE BLOOD COUNT 3.8 10^3/uL (4.0-10.0)
[2018-12-25 05:59] LABS: BLOOD UREA NITROGEN 15 MG/DL (7-18); CALCIUM LEVEL 7.6 MG/DL (8.8-10.2); CARBON DIOXIDE LEVEL 31 MEQ/L (21-32); CHLORIDE LEVEL 106 MEQ/L (98-107); CREATININE FOR GFR 0.47 MG/DL (0.55-1.30); GLOMERULAR FILTRATION RATE > 60.0 (>45); GLUCOSE, FASTING 94 MG/DL (70-100); POTASSIUM SERUM 3.7 MEQ/L (3.5-5.1); SODIUM LEVEL 141 MEQ/L (136-145)
[2018-12-25 08:00] VITALS: BP 132/69
[2018-12-25] MEDS: HEPARIN SOD (PORCINE) 5000 UNITS/ML VIAL SC SCH ×2 (08:35→22:05)
[2018-12-25] MEDS: PANTOPRAZOLE 40MG TAB (PROTONIX) PO SCH (08:36)
[2018-12-25] MEDS: DOCUSATE SODIUM 100 MG CAP PO SCH ×2 (08:46→20:55)
[2018-12-25] MEDS: MOM 30ML SUSPENSION UDC PO SCH (08:47)
[2018-12-25] MEDS: NADOLOL 20MG TABLET PO SCH ×2 (09:00→20:41)
[2018-12-25 10:40] LABS: ALBUMIN 2.4 GM/DL (3.2-5.2); FREE THYROXINE INDEX 3.3 % (1.3-4.8); RHEUMATOID FACTOR QUANT < 10.0 IU/ML (<15.0); T UPTAKE 34 % (30-39); THYROXINE (T4) 9.7 UG/DL (4.5-12.0)
[2018-12-25 12:00] VITALS: BP 119/70
--- NOTE | 2018-12-25 14:40 | IPN ---
DATE: 12/25/2018 Ms. Villalobos has unexpectedly put out an extraordinary amount of output from her chest tube. She put out 1400 mL yesterday and 1650 mL since 12 o'clock midnight. She is breathing well and her pain is being well controlled at the chest tube insertion site. She has only taken in orally 1800 mL. That, in combination with her IV antibiotic, she has taken in a total of 2105 mL. Her vital signs show a maximum temperature (t-max) of 98.2 with a heart rate that ranges between 61 and 105 in a sinus rhythm, respiratory rate of 14 to 18 without the use of accessory muscles who is 96 to 99% saturated on room air and whose blood pressure is ranging between 116/53 to 150/80. Her intake and output are described above. There is no air leak from the chest tube. Her weight today is 97.6 kg compared to 98.4 kg on admission. PHYSICAL EXAMINATION: LUNGS: She has some faint inspiratory crackles in the right lower hemithorax. Her percussion note is full to the diaphragm, as far as I could tell through her morbid obesity. There is no E-to-A egophony. There is no wheezing. CARDIAC EXAM: Without murmurs, clicks, gallops or rubs. I cannot feel her point of maximum impulse (PMI). S1, S2 are normal. ABDOMEN: Soft, nontender. Bowel sounds positive. There is no hepatomegaly. No costovertebral angle tenderness that I can appreciate through her obesity. EXTREMITIES: Show 1+ pretibial edema. No calf tenderness. No differential swelling of the upper extremities. SKIN: Warm, dry and perfused without cyanosis or mottling, including that of the nail beds and knees. NECK: Supple. There is no jugular venous distention. No subcutaneous emphysema. Trachea is midline. MOUTH: Shows her mucous membranes to be pink and moist. Lips and commissures without lesions. There is no thrush. Upper dentures are in place. EYES: Show her pupils to be equal and reactive. Extraocular motion intact. Sclerae anicteric. NEUROLOGIC: Shows II through XII intact with gross motor and gross sensation intact. Gait is also intact. PSYCHIATRIC: Shows her to be awake and alert, oriented times three with appropriate mood and affect and conversational. Her white count today is down to 3.9 with a hemoglobin and hematocrit of 9.2 and 29.7, platelet count is 98, which is basically in and around her baseline. Differential shows 68% neutrophils, 15% lymphocytes, 12% monocytes. There are no immature forms, no toxic granulations. Chemistries showed normal electrolytes with a BUN and creatinine of 15 and 0.47 and a glucose of 94 and a calcium of 7.6. Chest x-ray is somewhat improved. The infiltrative process on the lateral film is better. She still has some fluid in the right costophrenic angle. Lungs are fully expanded to the chest wall. IMPRESSION: 1. Transudative lymphocytic pleural effusion, unknown origin. 2. Consolidation of right lower lobe lung segment, possibly a pneumonia. 3. Pancytopenia with accentuation of thrombocytopenia. 4. Gastroesophageal reflux disease. 5. Morbid obesity. 6. Mild anemia. 7. Hyperalbuminemia. 8. Hypertension. PLAN AND DISCUSSION: Up to now, I have been assigning her pleural effusion to be parapneumonic even though it is transudative. I am not so sure that it is. Other possibilities include autoimmune disease or cirrhosis. Cirrhosis would certainly explain her splenomegaly. I have therefore ordered a liver biopsy for tomorrow to look for fatty liver cirrhosis. I have also ordered GALLITO and rheumatoid factor, along with thyroid function tests. In 2010, her hepatitis B and C studies were negative. I have no reason to suspect that she has infectious hepatitis.
[2018-12-25 16:00] VITALS: BP 111/59
[2018-12-25] MEDS ORDERED: SLF 3 ML SYR IV PRN (18:30)
[2018-12-25 20:00] VITALS: BP 141/67
[2018-12-25] MEDS: cefTRIAXone SOD 1 GM in D5W MINI-BAG PLUS 50 ML IV SCH (20:39)
[2018-12-25] MEDS: AZITHROMYCIN INJ 500 MG, VIAL MATE ADAPTER 1 EACH in D5W 250 ML IV SCH (22:04)
[2018-12-25] MEDS: SLF 3 ML SYR IV SCH (22:05)
[2018-12-26] VITALS (7 sets, daily range): BP systolic 118–168; BP diastolic 60–76
[2018-12-26] MEDS: KETOROLAC 30 MG/ML VIAL (J1885) IV SCH ×4 (01:47→19:51)
[2018-12-26] MEDS: LEVALBUTEROL 1.25 MG/0.5 ML CONCENTRATE NEB NEB SCH ×4 (02:00→21:15)
[2018-12-26] MEDS: SLF 3 ML SYR IV SCH ×3 (05:43→21:51)
[2018-12-26 05:45] LABS: BASO % 0.6 % (0.0-1.0); EOS # 0.1 10^3/uL (0.0-0.50); EOS % 4.5 % (0.0-3.0); HEMOGLOBIN 9.4 g/dl (12.0-15.5); LYMPH # 0.6 10^3/uL (1.5-4.5); LYMPH % 19.6 % (24.0-44.0); MEAN CORPUSCULAR HEMOGLOBIN 24.5 pg (27.0-33.0); MEAN CORPUSCULAR HGB CONC 30.3 g/dl (32.0-36.5); MEAN CORPUSCULAR VOLUME 80.9 fl (80.0-96.0); MONO # 0.4 10^3/uL (0.0-0.8); MONO % 13.5 % (0.0-5.0); NEUTROPHILS # 1.9 10^3/uL (1.8-7.7); NEUTROPHILS % 61.5 % (36.0-66.0); RED BLOOD COUNT 3.83 10^6/uL (4.00-5.40); WHITE BLOOD COUNT 3.1 10^3/uL (4.0-10.0)
[2018-12-26 05:53] LABS: PLATELET COUNT, AUTOMATED 94 10^3/uL (150-450)
[2018-12-26 06:07] LABS: BLOOD UREA NITROGEN 16 MG/DL (7-18); CALCIUM LEVEL 7.8 MG/DL (8.8-10.2); CARBON DIOXIDE LEVEL 29 MEQ/L (21-32); CHLORIDE LEVEL 105 MEQ/L (98-107); CREATININE FOR GFR 0.52 MG/DL (0.55-1.30); GLOMERULAR FILTRATION RATE > 60.0 (>45); GLUCOSE, FASTING 86 MG/DL (70-100); POTASSIUM SERUM 3.8 MEQ/L (3.5-5.1); SODIUM LEVEL 141 MEQ/L (136-145)
--- NOTE | 2018-12-26 07:55 | REP ---
PA and lateral chest, 07:24 a.m.: Comparisons are 12/25/2018 and 12/24/2018. The right pleural effusion is unchanged. The atelectasis adjacent to this effusion is unchanged. There is a right thoracotomy tube. The tube has retracted slightly and the side-hole projects over the lateral aspect of the right ribs. No pneumothorax is identified. The remainder of the lung cueva are clear. Cardiac size is normal. Electronically Signed by Larry Griffiths MD 12/26/2018 07:46 A
[2018-12-26] MEDS ORDERED: POTASSIUM CHLORIDE 10 MEQ SR TABLET PO ONE (08:00)
[2018-12-26] MEDS ORDERED: FUROSEMIDE 40 MG/4 ML VIAL (J1940) IV ONE (08:00)
[2018-12-26 08:42] LABS: INR 1.14; PROTHROMBIN TIME 14.8 SECONDS (12.1-14.4)
[2018-12-26 08:43] LABS: PARTIAL THROMBOPLASTIN TIME 31.8 SECONDS (25.4-37.6)
[2018-12-26] MEDS: HEPARIN SOD (PORCINE) 5000 UNITS/ML VIAL SC SCH ×2 (09:00→21:50)
[2018-12-26 09:25] LABS: ALBUMIN 2.3 GM/DL (3.2-5.2); ALT/SGPT 16 U/L (12-78); BILIRUBIN,DIRECT 0.2 MG/DL (0.0-0.2); BILIRUBIN,TOTAL 0.5 MG/DL (0.2-1.0); TOTAL PROTEIN 5.5 GM/DL (6.4-8.2)
[2018-12-26] MEDS: NADOLOL 20MG TABLET PO SCH ×2 (09:50→21:50)
[2018-12-26] MEDS: PANTOPRAZOLE 40MG TAB (PROTONIX) PO SCH (09:50)
[2018-12-26] MEDS: DOCUSATE SODIUM 100 MG CAP PO SCH ×2 (09:51→21:50)
[2018-12-26] MEDS: MOM 30ML SUSPENSION UDC PO SCH (09:51)
--- NOTE | 2018-12-26 10:06 | REP ---
CHEST, TWO VIEWS: Two views of the chest are performed. Right chest tube is again seen. The sideport is along the inner aspect of the rib cage. There is a very small right pneumothorax. There is some right pleural effusion/thickening as well as adjacent atelectasis/infiltrate appearing similar to the prior study. Cardiomediastinal silhouette is unchanged. Left lung is clear. Electronically Signed by Larry Moyer MD 12/26/2018 10:39 P
[2018-12-26 10:28] LABS: VITAMIN B12 LEVEL 813 PG/ML (232-1245)
[2018-12-26 11:26] LABS: HEPATITIS A ANTIBODY IGM NEGATIVE (NEGATIVE); HEPATITIS B CORE ANTIBODY IGM NEGATIVE (NEGATIVE); HEPATITIS B SURFACE ANTIGEN NEGATIVE (NEGATIVE); HEPATITIS C VIRUS ABY INDEX 0.1 INDEX (<0.8)
--- NOTE | 2018-12-26 12:14 | IPNPDOC ---
Text Note Date of Service The patient was seen on 12/25/18. NOTE Subjective: Patient seen and examined at bedside this morning. Talkative and in good spirits. No new medical complaints. States she is feeling much better today. Objective: General: NAD, lying comfortably in bed HEENT: NC/AT, EOMI Lungs: diminished breath sound RLL Abd: obese, soft, NT, +BS Ext: +1 peripheral edema Neuro: no gross focal deficits Psych: in good spirits, AAOx3 A/P: 68 yo female for shortness of breath, found to have large right pleural effusion: #SOB - multifactorial - PNA with parapneumonic effusion - chest tube in place - follow as per thoracic surgery - assistance appreciated - fluid analysis appears transudative - very large output today - continue with antimicrobial therapy - ceftriaxone/azithromycin - cultures pending #splenomegaly - uncertain etiology - she does state her group activities aide told her she has "high blood pressure around her stomach" - continue with nadolol - previous liver US from 2017 was unrevealing - will obtain records from her PCP and GI #pancytopenia #HTN #GERD #DVT prophylaxis Dispo: will contact PCP/GI tomorrow for old records; consider further inpatient w/u for liver pathology VS,Reggie, I+O VS, Reggie, I+O Laboratory Tests 12/26/18 05:11 Red Blood Count 3.83 L, Mean Corpuscular Volume 80.9, Mean Corpuscular Hemoglobin 24.5 L, Mean Corpuscular Hemoglobin Concent 30.3 L, Red Cell Distribution Width 15.0 H, Neutrophils (%) (Auto) 61.5, Lymphocytes (%) (Auto) 19.6 L, Monocytes (%) (Auto) 13.5 H, Eosinophils (%) (Auto) 4.5 H, Basophils (%) (Auto) 0.6, Neutrophils # (Auto) 1.9, Lymphocytes # (Auto) 0.6 L, Monocytes # (Auto) 0.4, Eosinophils # (Auto) 0.1, Basophils # (Auto) 0.0, Calcium Level 7.8 L Vital Signs Date Time Temp Pulse Resp B/P (MAP) Pulse Ox O2 Delivery O2 Flow Rate FiO2 12/26/18 09:50 60 161/76 12/26/18 07:59 97.3 18 99 12/23/18 14:00 Room Air I&O- Last 24 Hours up to 6 AM 12/26/18 06:00 Intake Total 1130 ml Output Total 1050 ml Balance 80 ml CHRISTEN ALDRIDGE MD Dec 26, 2018 12:14
--- NOTE | 2018-12-26 12:22 | IPNPDOC ---
Text Note Date of Service The patient was seen on 12/26/18. NOTE Subjective: Patient seen and examined at bedside this morning. Talkative and in good spirits. Discussed with her GI physician regarding her liver pathology, diagnoses indicated below. No biopsy done in the past. Objective: General: NAD, lying comfortably in bed HEENT: NC/AT, EOMI Lungs: diminished breath sound RLL Abd: obese, soft, NT, +BS Ext: +1 peripheral edema Neuro: no gross focal deficits Psych: in good spirits, AAOx3 A/P: 68 yo female for shortness of breath, found to have large right pleural effusion: #SOB - multifactorial - PNA with parapneumonic effusion - chest tube in place - follow as per thoracic surgery - assistance appreciated - fluid analysis appears transudative - continue with antimicrobial therapy - ceftriaxone/azithromycin - cultures pending #splenomegaly #hepatoma - [id number] surveillance #fatty liver disease - o/p US from 11/04/18 = cholelithiasis/mildly dilated CBD; geographic fatty infiltration; slight pleural effusion; small ascites - 08/22/18 --> LFT WNL except AST=40; AFP WNL; Hep C negative #reactive gastropathy - continue nadolol - stomach antrum biopsy from 01/31/18 = no h. pylori, reactive gastropathy #esophageal varices - upper and lower third of esophagus s/p ligation/banding - continue nadolol - last EGD 01/31/18 #gastric ulcer #diaphragmatic hernia #esophageal obstruction - secondary to scarring after variceal banding #pancytopenia #HTN #GERD #DVT prophylaxis Dispo: pending fluid cytology, liver bx, continue chest tube, clinical improvement VS,Parame, I+O VS, Donibone, I+O Laboratory Tests 12/26/18 05:11 Red Blood Count 3.83 L, Mean Corpuscular Volume 80.9, Mean Corpuscular Hemoglobin 24.5 L, Mean Corpuscular Hemoglobin Concent 30.3 L, Red Cell Distribution Width 15.0 H, Neutrophils (%) (Auto) 61.5, Lymphocytes (%) (Auto) 19.6 L, Monocytes (%) (Auto) 13.5 H, Eosinophils (%) (Auto) 4.5 H, Basophils (%) (Auto) 0.6, Neutrophils # (Auto) 1.9, Lymphocytes # (Auto) 0.6 L, Monocytes # (Auto) 0.4, Eosinophils # (Auto) 0.1, Basophils # (Auto) 0.0, Calcium Level 7.8 L Vital Signs Date Time Temp Pulse Resp B/P (MAP) Pulse Ox O2 Delivery O2 Flow Rate FiO2 12/26/18 09:50 60 161/76 12/26/18 07:59 97.3 18 99 12/23/18 14:00 Room Air I&O- Last 24 Hours up to 6 AM 12/26/18 06:00 Intake Total 1130 ml Output Total 1050 ml Balance 80 ml CHRISTEN ALDRIDGE MD Dec 26, 2018 12:22
--- NOTE | 2018-12-26 14:16 | RO ---
DATE OF PROCEDURE: 12/23/2018 PREPROCEDURE DIAGNOSES: Right pleural effusion, possible empyema. POSTPROCEDURE DIAGNOSES: Right pleural effusion, possible empyema. PROCEDURE: Insertion of a right lateral chest tube with conscious sedation. SURGEON: Fredrick Dewitt MD TUB OPERATOR: ANESTHESIA: DESCRIPTION OF PROCEDURE: Under satisfactory moderate sedation achieved with 6 mg of Versed, the patient was prepped and draped in the usual sterile fashion. An incision was made just at the inframammary fold after infiltrating the incision with 1% lidocaine in the pleural space. A tunnel was created in the chest. The patient had a thick rind and required increased force to get through the pleural rind into the chest. A #24 chest tube was then placed without difficulty, and it eluded 800 mL of serous fluid. The chest tube was secured to the chest wall with #2 Tevdek suture and connected to the Pleur-evac. The patient tolerated the procedure well, and a chest x-ray is pending.
[2018-12-26] MEDS ORDERED: LIDOCAINE 1% MDV 20ML VIAL As Ordered ONE (15:21)
[2018-12-26] MEDS: cefTRIAXone SOD 1 GM in D5W MINI-BAG PLUS 50 ML IV SCH (19:52)
[2018-12-26] MEDS: AZITHROMYCIN INJ 500 MG, VIAL MATE ADAPTER 1 EACH in D5W 250 ML IV SCH (21:48)
[2018-12-27] VITALS (7 sets, daily range): BP systolic 124–149; BP diastolic 58–71
[2018-12-27] MEDS: NYSTATIN 100,000 UNITS/GM TOPICAL PWD 15 GM TOP SCH ×3 (00:50→20:17)
[2018-12-27] MEDS: KETOROLAC 30 MG/ML VIAL (J1885) IV SCH ×4 (02:00→20:15)
[2018-12-27] MEDS: LEVALBUTEROL 1.25 MG/0.5 ML CONCENTRATE NEB NEB SCH ×4 (02:00→20:57)
[2018-12-27] MEDS: SLF 3 ML SYR IV SCH ×3 (05:04→20:17)
[2018-12-27 06:06] LABS: BASO % 0.5 % (0.0-1.0); EOS # 0.2 10^3/uL (0.0-0.50); EOS % 3.2 % (0.0-3.0); HEMATOCRIT 32.1 % (36.0-47.0); HEMOGLOBIN 9.7 g/dl (12.0-15.5); LYMPH # 0.5 10^3/uL (1.5-4.5); LYMPH % 7.6 % (24.0-44.0); MEAN CORPUSCULAR HEMOGLOBIN 25.1 pg (27.0-33.0); MEAN CORPUSCULAR HGB CONC 30.2 g/dl (32.0-36.5); MEAN CORPUSCULAR VOLUME 83.2 fl (80.0-96.0); MONO # 0.7 10^3/uL (0.0-0.8); MONO % 10.8 % (0.0-5.0); NEUTROPHILS # 4.7 10^3/uL (1.8-7.7); NEUTROPHILS % 77.6 % (36.0-66.0); PLATELET COUNT, AUTOMATED 103 10^3/uL (150-450); RED BLOOD COUNT 3.86 10^6/uL (4.00-5.40)
[2018-12-27 06:34] LABS: BLOOD UREA NITROGEN 17 MG/DL (7-18); CALCIUM LEVEL 7.9 MG/DL (8.8-10.2); CARBON DIOXIDE LEVEL 31 MEQ/L (21-32); CHLORIDE LEVEL 105 MEQ/L (98-107); CREATININE FOR GFR 0.62 MG/DL (0.55-1.30); GLOMERULAR FILTRATION RATE > 60.0 (>45); GLUCOSE, FASTING 95 MG/DL (70-100); POTASSIUM SERUM 4.3 MEQ/L (3.5-5.1); SODIUM LEVEL 141 MEQ/L (136-145)
[2018-12-27] MEDS ORDERED: FUROSEMIDE 40 MG/4 ML VIAL (J1940) IV ONE (07:45)
[2018-12-27] MEDS: DOCUSATE SODIUM 100 MG CAP PO SCH ×2 (08:50→20:15)
[2018-12-27] MEDS: PANTOPRAZOLE 40MG TAB (PROTONIX) PO SCH (08:50)
[2018-12-27] MEDS: NADOLOL 20MG TABLET PO SCH ×2 (08:51→20:17)
[2018-12-27] MEDS: HEPARIN SOD (PORCINE) 5000 UNITS/ML VIAL SC SCH ×2 (08:52→20:15)
[2018-12-27] MEDS: MOM 30ML SUSPENSION UDC PO SCH (08:52)
--- NOTE | 2018-12-27 09:02 | REP ---
PA and lateral chest 07:37 a.m. : Comparison is 12/26/2018. The right thoracotomy tube is unchanged with the side-hole projecting over the lateral aspect of the right ribs. I suspect there is a small subpulmonic pneumothorax in the right costophrenic angle as an interval change. The right pleural effusion is unchanged. The atelectasis adjacent to the pleural effusion is unchanged. Left lung is clear. Cardiac size is normal. Impression: Suspect small subpulmonic pneumothorax in the right costophrenic angle. The side-hole of a right thoracotomy tube projects over the lateral aspects of the right ribs. The small right pleural effusion and atelectasis are unchanged. Electronically Signed by Larry Griffiths MD 12/27/2018 08:54 A
--- NOTE | 2018-12-27 10:35 | REP ---
ULTRASOUND-GUIDED LIVER BIOPSY The procedure was performed under the direct supervision of Dr. moyer. The risks and benefits of the procedure were explained to the patient and informed consent was obtained. The left lobe of the liver was localized using ultrasound guidance. The skin was prepped and draped in a sterile fashion. 0.9 percent saline was used as a local anesthetic. Using ultrasound guidance a 19/20 gauge coaxial needle biopsy system was inserted and advanced into the liver. Four core biopsy samples were obtained and sent to lab. The patient tolerated the procedure well and there were no immediate complications. After the appropriate amount of monitored convalescence the patient was discharged from the department. Reviewed by LARRY Roberts 12/26/2018 05:27 P Electronically Signed by Larry Moyer MD 12/27/2018 10:26 A
--- NOTE | 2018-12-27 13:19 | IPN ---
DATE OF SERVICE: 12/26/2018 Ms. Villalobos has put out an extraordinary amount from her chest tube, over 1000 mL in 24 hours and 310 mL since 12 o'clock midnight. I still do not have a really satisfactory explanation. Her vital signs show a maximum temperature (Tmax) of 98.9 with a heart rate that ranges between 56 and 68 in a sinus rhythm, respiratory rate of 14-18 without the use of accessory muscles, who is 95% to 99% saturated on room air, and whose blood pressure is ranging between 161/76 to 141/57. Her intake and output over the past 24 hours has been recorded as 1265 in and 1050 out, for a positivity of 250 mL. She has taken in 960 mL in by mouth intake. Her chest tube has put out 1050 mL. Her weight today is 98.7 kg compared to 97.6 kg yesterday. On physical examination, her lungs show some decreased breath sounds in the right lower hemithorax. Her percussion notes are full to the diaphragm. I hear no wheezes, rhonchi, or rales. I essentially hear normal vesicular sounds except for the diminished sounds in the right lower hemithorax. CARDIAC EXAMINATION: Is without murmurs, clicks, gallops, or rubs. I cannot feel her point of maximum impulse (PMI). S1, S2 are normal. ABDOMEN: Is soft, nontender. Bowel sounds are positive. There is no hepatomegaly. No costovertebral angle (CVA) tenderness. EXTREMITIES: Show trace pretibial edema. No calf tenderness. No differential swelling of the upper extremities. SKIN: Is warm, dry, and perfused without cyanosis or mottling, including that of the nail beds and the knees. NECK: Is supple. There is no jugular venous distention. No subcutaneous emphysema. Trachea is midline. There is no lymphadenopathy. MOUTH: Shows her mucous membranes to be pink and moist. Lips and commissures without lesions. There is no thrush. Upper dentures are in place. EYES: S how her pupils to be equal and reactive. Extraocular motion intact. Sclerae anicteric. NEUROLOGIC: Shows II-XII intact, along with gross motor and gross sensation intact. Gait is not tested. PSYCHIATRIC: Shows her to be awake and alert, oriented times three with appropriate mood and affect and conversational. LYMPHATICS: Show no cervical or axillary lymphadenopathy. Her white count today is 3.1 with a hemoglobin and hematocrit of 9.4 and 31.0. Platelet count is 94, stable from yesterday of 98. Differential shows 61% neutrophils, 19% lymphocytes, 13% monocytes. There are no immature forms, no toxic granulations. Her electrolytes are normal with a BUN and creatinine of 16 and 0.52 with a glucose of 86 and a calcium of 7.8. Her albumin yesterday was 2.4, and her thyroid function tests were normal. TSH was 1.65 with the lower limit of 0.358 and an upper limit of normal of 3.74. Chest x-ray today shows some blunting of the right costophrenic angle. Otherwise, the lung is expanded to the chest wall. There is still opacity in the posterior right hemithorax consistent with a consolidation. IMPRESSION: 1. Transudative lymphocytic pleural effusion, unknown origin. 2. Consolidation of right lower lobe lung segment, possibly a pneumonia. 3. Pancytopenia with accentuation of thrombocytopenia. 4. Gastroesophageal reflux disease. 5. Morbid obesity. 6. Mild anemia. 7. Hypoalbuminemia. 8. Hypertension. PLAN AND DISCUSSION: As noted in yesterday's entry, I am going to obtain a liver biopsy today to look for a nonalcoholic steatohepatitis cirrhosis as an explanation for her increased fluid. I am also going to treat her symptomatically with diuretics. She has excellent renal function, and I cannot blame her persistent effusion on renal function. Will await pathology. I do not see anything suspicious of a lung mass. There is no lymphadenopathy either in the mediastinum or on physical examination in her neck or in her axilla.
[2018-12-27 14:58] LABS: ANTINUCLEAR ANTIBODIES DIRECT Negative (Negative)
[2018-12-27] MEDS: cefTRIAXone SOD 1 GM in D5W MINI-BAG PLUS 50 ML IV SCH (20:15)
[2018-12-27] MEDS: AZITHROMYCIN INJ 500 MG, VIAL MATE ADAPTER 1 EACH in D5W 250 ML IV SCH (21:18)
[2018-12-28] MEDS: KETOROLAC 30 MG/ML VIAL (J1885) IV SCH ×2 (02:00→08:41)
[2018-12-28] MEDS: LEVALBUTEROL 1.25 MG/0.5 ML CONCENTRATE NEB NEB SCH ×2 (02:00→07:19)
[2018-12-28 04:45] VITALS: BP 146/82
[2018-12-28] MEDS: SLF 3 ML SYR IV SCH (06:00)
[2018-12-28 06:33] LABS: BASO % 0.9 % (0.0-1.0); EOS # 0.2 10^3/uL (0.0-0.50); EOS % 4.9 % (0.0-3.0); HEMATOCRIT 31.5 % (36.0-47.0); HEMOGLOBIN 9.6 g/dl (12.0-15.5); LYMPH # 0.7 10^3/uL (1.5-4.5); LYMPH % 20.1 % (24.0-44.0); MEAN CORPUSCULAR HEMOGLOBIN 25.4 pg (27.0-33.0); MEAN CORPUSCULAR HGB CONC 30.5 g/dl (32.0-36.5); MEAN CORPUSCULAR VOLUME 83.3 fl (80.0-96.0); MONO # 0.5 10^3/uL (0.0-0.8); MONO % 15.1 % (0.0-5.0); NEUTROPHILS # 1.9 10^3/uL (1.8-7.7); NEUTROPHILS % 58.7 % (36.0-66.0); RED BLOOD COUNT 3.78 10^6/uL (4.00-5.40); WHITE BLOOD COUNT 3.2 10^3/uL (4.0-10.0)
[2018-12-28 06:36] LABS: PLATELET COUNT, AUTOMATED 88 10^3/uL (150-450)
[2018-12-28 06:54] LABS: BLOOD UREA NITROGEN 20 MG/DL (7-18); CALCIUM LEVEL 8.1 MG/DL (8.8-10.2); CARBON DIOXIDE LEVEL 33 MEQ/L (21-32); CHLORIDE LEVEL 105 MEQ/L (98-107); CREATININE FOR GFR 0.64 MG/DL (0.55-1.30); GLOMERULAR FILTRATION RATE > 60.0 (>45); GLUCOSE, FASTING 85 MG/DL (70-100); SODIUM LEVEL 142 MEQ/L (136-145)
[2018-12-28 08:00] VITALS: BP 128/64
--- NOTE | 2018-12-28 08:32 | REP ---
PA and lateral chest: Comparison is 12/27/2018. The right thoracotomy tube is unchanged with the side-hole projected over the ribs at the lateral chest wall as previously. I suspect a small subpulmonic pneumothorax in the right costophrenic angle, unchanged. The lung cueva otherwise clear. Cardiac size normal. Sonia, mediastinum, skeletal structures are unremarkable. Impression: Small subpulmonic pneumothorax in the right costophrenic angle. Right thoracotomy tube as described. Electronically Signed by Larry Griffiths MD 12/28/2018 08:24 A
[2018-12-28] MEDS: PANTOPRAZOLE 40MG TAB (PROTONIX) PO SCH (08:37)
[2018-12-28] MEDS: HEPARIN SOD (PORCINE) 5000 UNITS/ML VIAL SC SCH (08:37)
[2018-12-28 08:38] VITALS: BP 128/64
[2018-12-28] MEDS: NADOLOL 20MG TABLET PO SCH (08:38)
[2018-12-28] MEDS: NYSTATIN 100,000 UNITS/GM TOPICAL PWD 15 GM TOP SCH (08:42)
[2018-12-28] MEDS: DOCUSATE SODIUM 100 MG CAP PO SCH (08:46)
[2018-12-28] MEDS: MOM 30ML SUSPENSION UDC PO SCH (08:46)
[2018-12-28] MEDS ORDERED: SPIR100T3 PO (10:47)
[2018-12-28] MEDS ORDERED: LASI40TA9 PO (10:47)
[2018-12-28] MEDS ORDERED: PANT40TA3 PO (10:49)
--- NOTE | 2018-12-28 18:39 | IPN ---
DATE: 12/27/2018 Ms. Villalobos is still putting out copious amounts of fluid, however, is much less than what yesterday being 550. She desperately wants to go home to take care of her dog. However, I am afraid that if I take the chest tube out it will just recur. Her hepatic biopsy is pending. Her vital signs show a T-max of 99.1 with a heart rate that ranges between 63 and 71 in a sinus rhythm, respiratory rate of 18 to 20 without the use of accessory muscles who is 97% saturated on room air and whose blood pressure is ranging between 125/71 to 144/63. Her intake and output over the past 24 hours has been recorded as 480 in and 900 out for a negativity of 420 mL. As noted above her chest tube output is 550 mL and there is no air leak. On physical examination, her lungs show normal fascicular sounds with some expiratory crackles at the right base. Percussion note is full to the diaphragm. Cardiac exam is without murmurs, clicks, gallops or rubs. I cannot feel her point of maximal impulse (PMI) through her obesity. S1, S2 are normal. Abdomen is soft and nontender. Bowel sounds are positive and again I cannot feel any hepatosplenomegaly because of her obesity. There is no abdominal tenderness. Extremities show trace pretibial edema. No calf tenderness. No differential swelling of the upper extremities. Skin is warm, dry and perfused without cyanosis or mottling including that of the nail beds and the knees. Neck is supple. There is no jugular venous distention, no subcutaneous emphysema. Trachea midline. Mouth shows her mucous membranes to be pink and moist, lips and commissures without lesions. No thrush. Eyes show her pupils to be equal and reactive. Extraocular muscles intact. Sclera anicteric. Neuro shows II through XII intact. Gross motor and gross sensation intact. Gait is not tested. Psychiatric shows her to be awake and alert, oriented time three with appropriate mood and affect, and conversational. Her white count today is 6.0 with hemoglobin and hematocrit of 9.7 and 32.1 respectively. Platelet count is 103 with a differential that shows 77% neutrophils, 7% lymphocytes, 10% monocytes. There are no immature forms. No toxic granulations. Chemistry: Showed normal electrolytes with a BUN and creatinine of 17 and 0.62 with a glucose of 95 and a calcium of 7.9. Her albumin yesterday was 2.3. Her GALLITO screen is negative as is her rheumatoid screen. Hepatitis B and C antigens are negative. Her chest x-ray today shows the lung fully expanded to the chest wall. There is a small air space at the right costophrenic angle. The lateral chest x-ray still shows consolidation in the right lower hemithorax posteriorly. Chest tube is still in good place posteriorly. IMPRESSION: 1. Transudative lymphocytic pleural effusion, unknown origin. 2. Consolidation right lower lobe segment possibly pneumonia. 3. Pancytopenia with accentuation of thrombocytopenia. 4. Gastroesophageal reflux disease. 5. Morbid obesity. 6. Mild anemia. 7. Hypoalbuminemia. 8. Hypertension. 9. Splenomegaly. PLAN AND DISCUSSION: We are awaiting the results of the liver biopsy. I am grateful that she has halved her chest tube output and I have given her another dose of Lasix. Her potassium is satisfactory.
--- NOTE | 2018-12-30 11:37 | IPN ---
DATE: 12/28/2018 Ms. Villalobos is doing well and her chest tube output is markedly decreased. I have gone over pathology with Dr. Jones of pathology, and it looks as though she does have indeed end-stage cirrhosis. Etiology is unknown but it is probably secondary to fatty liver. Her vital signs show a maximum temperature (Tmax) of 99.2 with a heart rate that ranges between 61-58 in a sinus rhythm, respiratory rate of 18-20 without the use of accessory muscles, who is 96-97% saturated on room air and whose blood pressure is ranging between 120/64-148/82. Her intake and output for the past 24 hours has been recorded as 1400 in and 350 out for a positivity of 1050 mL. She has put out 200 mL from the chest tube and there is no air leak. Her weight today is 98.7 kg compared to 97.6 kg yesterday. On physical examination, she has equal breath sounds on either side. Her percussion note is full to the diaphragm. There is still some inspiratory rhonchi on the right side. These are mostly at the base. They clear with coughing. Cardiac exam is without murmurs, clicks, gallops or rubs. I cannot feel her point of maximal impulse (PMI). S1, S2 are normal. Abdomen is soft and nontender. Bowel sounds are positive. There is no hepatosplenomegaly and no costovertebral angle (CVA) tenderness. Extremities show no pretibial edema and no calf tenderness. No differential swelling of the upper extremities. Skin is warm, dry and perfused, without cyanosis or mottling including that of the nail beds and the knees. Neck is supple. There is no jugular venous distention, no subcutaneous emphysema. Trachea midline. Mouth shows her mucous membranes to be pink and moist, lips and commissures without lesions. No thrush. Eyes show her pupils to be equal and reactive. Extraocular muscles intact. Sclerae anicteric. Neuro shows II-XII intact along with gross motor and gross sensation intact. Gait is not tested. Psychiatric shows her to be awake and alert, oriented time three with appropriate mood and affect and conversational. Her white count today is 3.2 with hemoglobin and hematocrit of 9.6 and 31.5, with a platelet count of 88. Differential shows 58% neutrophils, 20% lymphocytes, 15% monocytes. There are no immature forms. No toxic granulations. Her electrolytes are normal with BUN and creatinine of 20 and 0.64, a calcium of 8.1 and glucose of 85. Her chest x-ray shows her lung fully expanded to the chest wall except for some entrapment of the lung in the costophrenic angle on the right side. Chest tube is in good place. IMPRESSION: 1. Transudative lymphocytic pleural effusion secondary to cirrhosis. 2. Advanced cirrhosis documented by liver biopsy. 3. Probable nonalcoholic steatohepatitis. 4. Gastroesophageal reflux disease. 5. Pancytopenia. 6 Morbid obesity. 7. Anemia. 8. Hypoalbuminemia. 9. Hypertension. PLAN AND DISCUSSION: We now have a very good explanation for a lot of her signs and symptoms. Pleural effusion is secondary to hypoalbuminemia secondary to her cirrhosis. Her pancytopenia is probably also secondary to her cirrhosis as is her splenomegaly. I will remove her chest tube today. I will leave it to the medical physicians to undertake treatment of her cirrhosis. Although, I think this is going to prove to be end-stage. Weight loss is certainly the main stay of her treatment, although that is probably the hardest part. She is on a low sodium diet and we should put her diuretics. She is requesting that I refer her to Dr. Shay, primary care physician. We also have to notify Dr. Sona Dewey, previously [employer], of the liver diagnosis. Dr. Dewey is her research laboratory technician. If she is discharged today by the medical service, I will see her back in 10 days with a chest x-ray and followup. I will contact Dr. Shay. [facility]IT[facility]
--- NOTE | 2019-01-02 22:07 | DSES ---
DATE OF ADMISSION: 12/23/2018 DATE OF DISCHARGE: 12/28/2018 PRIMARY CARE PROVIDER: Dr. Forte CONSULTANTS: Cardiothoracic surgery, Dr. Fredrick Dewitt PROCEDURES: Chest tube placement. DISCHARGE DIAGNOSES: Acute respiratory distress. Parapneumonic effusion, status post chest tube placement. Liver cirrhosis Pneumonia status post antibiotic treatment. Splenomegaly. Esophageal varices, status post ligation and banding. Gastric ulcer. Esophageal obstruction secondary to scarring from variceal banding procedure. Hypertension. HOSPITALIZATION COURSE: The patient is a 68-year-old female, presented to [facility] on 12/23/2018 by primary care recommendation for pleural effusion. Patient admitted under hospitalist service. Cardiothoracic surgery consulted for chest tube placement. Case discussed with cardiothoracic surgery. Patient started on empiric antibiotics. Pleural fluid was collected for analysis. Later, chest tube removed and fluid cytology was reviewed. The patient was found to have liver cirrhosis, medication adjusted, and patient determined stable for discharge on 12/28/2018 with the recommendation to followup with primary care provider in 1 week. Patient should followup with Dr. Dewitt in 10 days. Patient is recommended to follow with her gastrointestinal (GI) specialist at the scheduled time. Vital signs on the day of discharge showed temperature of 97.6, pulse of 60, respirations 22, blood pressure is 128/64, pulse oximetry is 97% in room air. Laboratory data on the day of discharge showed WBC 3.2, hemoglobin 9.6, hematocrit 31.5, platelet count is 88. Sodium is 142, potassium 4, chloride 105, carbon dioxide 33, BUN 20, creatinine 0.64, GFR greater than 60, fasting glucose 85, calcium is 8.1. During this hospitalization, other laboratory tests demonstrated rheumatoid factor is negative, GALLITO screen is negative, hepatitis panel is negative. Microbiology: Blood culture from 12/23/2018 showed no growth after 5 days times two sets. Pleural fluid culture from 12/23/2018 showed no growth. Pleural fluid cytology showed no malignancy identified. Peripheral smear showed chronic thrombocytopenia and recent leukopenia. Normochromic normocytic anemia with features of anemia of chronic disease. Cell block of pleural fluid showed reactive mesothelial cells, fibrin and blood elements. Liver ultrasound-guided core biopsy showed liver cirrhosis with mostly regenerative hepatocellular nodules and markedly altered parenchymal architecture. DISCHARGE MEDICATIONS: - Lasix 40 mg by mouth daily - pantoprazole 40 mg by mouth daily - spironolactone 100 mg by mouth daily - Tylenol 650 mg by mouth every 4 hours as needed - vitamin E 1200 units by mouth nightly - vitamin C 1000 mg by mouth nightly - calcium 1200 mg by mouth nightly - vitamin D 2000 units by mouth nightly - CoQ10 400 mg by mouth nightly - losartan 25 mg by mouth nightly - levocetirizine 5 mg by mouth daily as needed for runny nose - nadolol 20 mg by mouth twice a day - sucralfate 1 gram by mouth twice a day - vitamin A 20,000 units by mouth nightly DISCHARGE INSTRUCTIONS: Discontinue line. Discharge home. Activity as tolerated. Diet as tolerated. Patient should followup with her primary care provider in 1 weeks. Patient should followup with GI specialist, Dr. Sona Candelario, at the scheduled time. Patient should followup with Dr. Fredrick Dewitt in 10 days. DISCHARGE CONDITION: Fair. DISCHARGE TIME: Greater than 30 minutes. MTDD
== END 2018-12-28 14:33 | disposition home or self-care (01) | DRG 186 ==
LOC: M ED 11:01 → M ED INP 13:57 → M PCU 14:20
PROVIDERS: ADMIT Thoracic Surgery (Cardiothoracic Vascular Surgery); ATTEND Internal Medicine
PROC: 0W9900Z Drainage of Right Pleural Cavity with Drainage Device, Open Approach (ICD-10-PCS; principal; 2018-12-23)
PROC: 0FB23ZX Excision of Left Lobe Liver, Percutaneous Approach, Diagnostic (ICD-10-PCS; 2018-12-26)
DX: J90 Pleural effusion, not elsewhere classified (principal); J18.9 Pneumonia, unspecified organism; D61.818 Other pancytopenia; I85.10 Secondary esophageal varices without bleeding; K21.9 Gastro-esophageal reflux disease without esophagitis; I10 Essential (primary) hypertension; D69.6 Thrombocytopenia, unspecified; E66.01 Morbid (severe) obesity due to excess calories; E88.09 Other disorders of plasma-protein metabolism, not elsewhere classified; K74.60 Unspecified cirrhosis of liver; K22.2 Esophageal obstruction; R16.1 Splenomegaly, not elsewhere classified; K76.0 Fatty (change of) liver, not elsewhere classified; K31.89 Other diseases of stomach and duodenum; K28.9 Gastrojejunal ulcer, unspecified as acute or chronic, without hemorrhage or perforation; R06.03 Acute respiratory distress; Z79.899 Other long term (current) drug therapy; Z88.6 Allergy status to analgesic agent

== ENCOUNTER → 2019-01-03 | Outpatient (REF) | payer MEDICARE, OTHER ==
[~2019-01-03] MED LIST changes: +CALC600T60 PO; +COEN400C2 PO; +LEVOTAB10 PO; +LOSA25TA14 PO; +PANT40TA3 PO; +SPIR100T3 PO; +SUCR1TAB56 PO; +TYLE325T5 PO; +[UNRECOGNIZED DRUG - OTHER] PO
== END ==
LOC: M LAB REF 12:03
PROVIDERS: ATTEND Internal Medicine
DX: K74.60 Unspecified cirrhosis of liver (principal)

== ENCOUNTER → 2019-01-10 | Outpatient (CLI) | payer MEDICARE, OTHER ==
--- NOTE | 2019-01-10 10:48 | REP ---
Clinical: Pleural effusion. Technique: PA and lateral. Comparison: 12/28/2018. Findings: Mediastinum and cardiac silhouette are normal. Left hemithorax appears clear. Very small residual right pleural reaction cannot be excluded. No pneumothorax. No acute consolidation. Skeletal structures are intact. Impression: Possible very small residual right pleural reaction. Electronically Signed by Tyrese Mary MD 01/10/2019 10:39 A
== END ==
LOC: M SMT 09:56
PROVIDERS: ATTEND Thoracic Surgery (Cardiothoracic Vascular Surgery)
DX: J90 Pleural effusion, not elsewhere classified (principal)

== ENCOUNTER 2020-09-25 06:30 | Emergency (ER) | payer MEDICARE, OTHER ==
[~2020-09-25] VITALS: Ht 162.6 cm; Wt 110.5 kg
[~2020-09-25 06:30] MED LIST changes: -OMEP40CA2; +OMEP40CA97; +PANT40TA29 PO; -PANT40TA3 PO; +VITA-243 PO; -VITA500T PO
[2020-09-25] MEDS ORDERED: MAGN400C2 PO (06:40)
[2020-09-25 07:36] LABS: BASO % 0.2 % (0.0-1.0); EOS # 0.1 10^3/uL (0.0-0.5); EOS % 0.4 % (0.0-3.0); LYMPH # 0.3 10^3/uL (1.5-5.0); LYMPH % 1.8 % (24.0-44.0); MEAN CORPUSCULAR HEMOGLOBIN 27.6 pg (27.0-33.0); MEAN CORPUSCULAR HGB CONC 31.7 g/dl (32.0-36.5); MONO # 0.7 10^3/uL (0.0-0.8); NEUTROPHILS # 12.6 10^3/uL (1.5-8.5); RED BLOOD COUNT 4.71 10^6/uL (4.00-5.40); WHITE BLOOD COUNT 13.7 10^3/uL (4.0-10.0)
[2020-09-25 07:56] LABS: ALBUMIN 3.6 GM/DL (3.2-5.2); ALT/SGPT 35 U/L (12-78); BILIRUBIN,DIRECT 0.3 MG/DL (0.0-0.2); BILIRUBIN,TOTAL 1.4 MG/DL (0.2-1.0); BLOOD UREA NITROGEN 13 MG/DL (7-18); CALCIUM LEVEL 8.9 MG/DL (8.8-10.2); CARBON DIOXIDE LEVEL 26 MEQ/L (21-32); CHLORIDE LEVEL 108 MEQ/L (98-107); CREATININE FOR GFR 0.91 MG/DL (0.55-1.30); GLOMERULAR FILTRATION RATE > 60.0 (>45); GLUCOSE, FASTING 98 MG/DL (70-100); POTASSIUM SERUM 4.9 MEQ/L (3.5-5.1); SODIUM LEVEL 141 MEQ/L (136-145); TOTAL PROTEIN 6.6 GM/DL (6.4-8.2)
--- NOTE | 2020-09-25 08:00 | REP ---
INDICATION: R/O DVT. Right calf swelling and redness. Rule out DVT. COMPARISON: None. TECHNIQUE: Right lower extremity duplex venous scanning. FINDINGS: The deep veins are anechoic and fully compressible from the groin to the popliteal fossa in the right lower extremity. Color flow imaging is homogeneous. Spectral Doppler interrogation demonstrates intact respiratory variation in flow and normal manual augmentation of flow. There is no evidence of deep vein thrombosis. 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 IMPRESSION: Negative right lower extremity duplex venous ultrasound. No evidence of deep vein thrombosis. A right popliteal fossa Villalobos cyst is noted. <Electronically signed by Elpidio Huff > 09/25/20 [id number]
[2020-09-25 08:21] LABS: PLATELET COUNT, AUTOMATED 57 10^3/uL (150-450)
[2020-09-25 08:58] LABS: ERYTHROCYTE SEDIMENTATION RATE 9 mm/hr (0-30)
[2020-09-25] MEDS ORDERED: ceFAZolin SOD 1 GM in D5W MINI-BAG PLUS 50 ML IV ONE (09:00)
[2020-09-25] MEDS ORDERED: CLEO300C2 PO (09:50)
[2020-09-25 09:57] VITALS: BP 133/63
== END 2020-09-25 10:00 | disposition home or self-care (01) ==
LOC: M ED 06:30
DX: L03.115 Cellulitis of right lower limb (principal); I10 Essential (primary) hypertension; E78.5 Hyperlipidemia, unspecified; K21.9 Gastro-esophageal reflux disease without esophagitis; Z87.09 Personal history of other diseases of the respiratory system; Z88.6 Allergy status to analgesic agent; Z79.899 Other long term (current) drug therapy
CPT/HCPCS: 36415; 80048; 80076; 83605; 85025; 85049; 85055; 85652; 86140; 93971; 96365; 99284; J0690

== ENCOUNTER 2021-09-02 00:26 | Emergency (ER) | payer MEDICARE, OTHER ==
[~2021-09-02] VITALS: Ht 162.6 cm; Wt 96.2 kg
[~2021-09-02 00:26] MED LIST changes: +CLEO300C2 PO; +MAGN400C2 PO; +OMEP40CA4; -OMEP40CA97
--- OUTSIDE RECORDS SUMMARY | 2021-09-02 00:33 | CCD | Continuity of Care Document ---
Author Author Ramonita GREEN Organization [place] [address] Phone [phone] Care Team Providers Care Poker Manager Name Role Phone Brittanie Howard D.O. AUTM [phone] Fredrick Dewitt M.D. AUTM [phone] Carla Gorman NP AUTM [phone] Problems Active Problems Provider Date Cirrhosis - non-alcoholic Brittanie Howard D.O. Onset: 02/08/2019 Non-alcoholic fatty liver Brittanie Howard D.O. Onset: 02/08/2019 Thrombocytopenic disorder GINA Lozano Onset: 019 Nonalcoholic steatohepatitis GINA Lozano Onset: 04/16 Essential hypertension GINA Lozano Onset: 06/13/2021 Psoriasis GINA Lozano Onset: 01/15/2021 Gastroesophageal reflux disease GINA Lozano Onset: 11/25/2018 Social History Type Date Description Comments Sex Unknown ETOH Use Rarely consumes alcohol Tobacco Use Start: Unknown Patient has never smoked Recreational Drug Use Denies Drug Use Smoking Status Reviewed: 12/04/19 Patient has never smoked Exercise Type/Frequency Does not exercise Sun Exposure Does not use sunscreen Seat Belt/Car Seat Always uses seat belt Allergies, Adverse Reactions, Alerts Description No Known Drug Allergies Medications Active Medications SIG Qnty Indications Ordering Provide r Date Bactrim DS 800-160mg Tablets take one tablet by mouth every 12 hours for ten days 20tabs L03.115 Brittanie Howard D.O. 06/24/2021 Blood Pressure Monitor Automatic/Arm/X-L arge Cuff Device prognosis: good. duration: 99 1units I10 Scott Howard D.O. 06/13/2021 Furosemide 20mg Tablets 1 by mouth every day 90tabs Erik Medina.O. 06/13 Pantoprazole Sodium 20mg Tablets D R Take One Tablet By Mouth Daily 90tabs K21.9 Erik Medina.O. 10/04/2020 Sucralfate 1gm Tablets 1 by mouth daily 90tabs Erik Medina.O. 12/04/2019 Clobetasol Propionate E 0.05% Crea m apply to rash areas on the plamar hands and plantar feet twice daily for seven days as needed for flares 60gm L40.9 Babak MedinaONanda Levocetirizine Dihydrochloride 5mg Tablets take one tablet by mouth at bedtime 90tabs Erik Medina.O. 11/03/2019 Spironolactone 100mg Tablets Take One Tablet By Mouth Daily 90tabs Erik Medina.ONanda Nadolol 20mg Tablets 1 by mouth twice daily 60tabs Erik Medina.O. Vitamin D3 Maximum Strength 5000Unit Capsules take one table by mouth daily Unknown Vitamin A 50622Mdgh Capsules 1 by mouth daily Unknown Selenium 200mcg Tablets 1 by mouth daily Unknown Sulpherzyme 2 tablets daily Unknown 00 Magnesium 400mg Tablets one tablet by mouth once per day Unknown Fish Oil 1200mg Capsules DR 1 by mouth every day Unknown Coq-10 400mg Capsules 1 by mouth daily Unknown Cinnamon 500mg Tablets 2 by mouth once daily Unknown Calcium 1200 [id number]-Goxf Chew tabs 1 tablets by mouth once per day Unknown Vitamin C 1000mg Tablets 1 by mouth every day Unknown Medications Administered in Office Medication SIG Qnty Indications Ordering Provider Date Injection Ceftriaxone Sodium Per 250 MG (Rocephin) Injection GINA Moreno 06/24/2021 Injection Ceftriaxone Sodium Per 250 MG (Rocephin) Injection GINA Moreno 06/24/2021 Injection Ceftriaxone Sodium Per 250 MG (Rocephin) Injection GINA Moreno 10/08/2020 Immunizations Description No Information Available Vital Signs Date Vital Result Comment 06/24/2021 2:33pm BP Systolic 126 mmHg BP Diastolic 84 mmHg Height 63.8 inches 5'3.80" Weight 230.00 lb BMI (Body Mass Index) 39.7 kg/m2 Heart Rate 72 /min Respiratory Rate 18 /min Body Temperature 98.2 F O2 % BldC Oximetry 97 % [place] Body Weight 115 lb 06/13/2021 10:30am BP Systolic 144 mmHg BP Diastolic 80 mmHg Height 63.8 inches 5'3.80" Weight 236.38 lb BMI (Body Mass Index) 40.8 kg/m2 Heart Rate 59 /min Respiratory Rate 14 /min Body Temperature 97.0 F O2 % BldC Oximetry 98 % [place] Body Weight 115 lb Results Description No Information Available Procedures Date Code Description Status 06/24/2021 62492 Office/Outpatient Established Lo w MDM 20-29 Min Completed 06/13/2021 64736 Office/Outpatient Established Mo d MDM 30-39 Min Completed 01/15/2021 46417 Office/Outpatient Established Mo d MDM 30-39 Min Completed Medical Devices Description No Information Available Encounters Type Date Location Provider Dx Diagnosis Office Visit 06/24/2021 2:30p Family Medicine [facility] GINA Lozano L03.115 Cellulitis of right lower li mb L40.9 Psoriasis, unspecified Office Visit 06/13/2021 10:30a Family [facility] GINA Lozano M79.646 Pain in unspecified finger(s ) L40.9 Psoriasis, unspecified D69.6 Thrombocytopenia, unspecifie d K21.9 Gastro-esophageal reflux dis ease without esophagitis K75.81 Nonalcoholic steatohepatitis ([place]) I10 Essential (primary) hyperten wayne Office Visit 01/15/2021 10:30a Family Medicine [facility] GINA Canada K75.81 Nonalcoholic steatohepatitis ([place]) K21.9 Gastro-esophageal reflux dis ease without esophagitis L40.9 Psoriasis, unspecified D69.6 Thrombocytopenia, unspecifie d I10 Essential (primary) hyperten wayne Z12.31 Encntr screen mammogram for malignant neoplasm of breast Assessments Date Code Description Provider 06/24/2021 L03.115 Cellulitis of right lower limb M GINA Burrell 06/24/2021 L40.9 Psoriasis, unspecified GINA Beatty 06/13/2021 M79.646 Pain in unspecified finger(s) GINA Healy 06/13/2021 L40.9 Psoriasis, unspecified GINA Beatty 06/13/2021 D69.6 Thrombocytopenia, unspecified GINA Healy 06/13/2021 K21.9 Gastro-esophageal reflux disease without esophagitis GINA Lozano 06/13/2021 K75.81 Nonalcoholic steatohepatitis ([place]) GINA Lozano 06/13/2021 I10 Essential (primary) hypertension GINA Lozano 01/15/2021 K75.81 Nonalcoholic steatohepatitis ([place]) GINA Lozano 01/15/2021 K21.9 Gastro-esophageal reflux disease without esophagitis GINA Lozano 01/15/2021 L40.9 Psoriasis, unspecified GINA Beatty 01/15/2021 D69.6 Thrombocytopenia, unspecified GINA Healy 01/15/2021 I10 Essential (primary) hypertension GINA Lozano 01/15/2021 Z12.31 Encounter for screen ing mammogram for malignant neoplasm of breast GINA Lozano Plan of Treatment Future Appointment(s):* 09/17/2021 2:00 pm - GINA Lozano at [facility] Functional Status Description No Information Available Mental Status Description No Information Available Referrals Description No Information Available
--- OUTSIDE RECORDS SUMMARY | 2021-09-02 00:33 | CCD | Continuity of Care Document ---
Author Author Ramonita GREEN Organization [place] [address] Phone [phone] Care Team Providers Care Carpenter/Labor Name Role Phone Brittanie Howard D.O. AUTM [phone] Fredrick Dewitt M.D. AUTM [phone] Carla Gorman NP AUTM [phone] Problems Active Problems Provider Date Cirrhosis - [...] table by mouth daily Unknown Vitamin A 54678Nsch Capsules 1 by mouth daily Unknown Selenium 200mcg Tablets 1 by mouth daily Unknown Sulpherzyme 2 tablets daily Unknown 00 Magnesium 400mg Tablets one tablet by mouth once per day Unknown Fish Oil 1200mg Capsules DR 1 by mouth every day Unknown Coq-10 400mg Capsules 1 by mouth daily Unknown Cinnamon 500mg Tablets 2 by mouth once daily Unknown Calcium 1200 1098-7302db-Tldz Chew tabs 1 tablets by mouth once [...] F O2 % BldC Oximetry 97 % [place] Body Weight 115 lb 06/13/2021 10:30am BP Systolic 144 mmHg BP Diastolic 80 mmHg Height 63.8 inches 5'3.80" Weight 236.38 lb BMI (Body Mass Index) 40.8 kg/m2 Heart Rate 59 /min Respiratory Rate 14 /min Body Temperature 97.0 F O2 % BldC Oximetry 98 % [place] Body Weight 115 lb Results Description No Information Available Procedures Date Code Description Status 06/24/2021 90572 Office/Outpatient Established Lo w MDM 20-29 Min Completed 06/13/2021 85018 Office/Outpatient Established Mo d MDM 30-39 Min Completed 01/15/2021 90292 Office/Outpatient Established Mo d MDM 30-39 Min Completed Medical Devices Description No Information Available Encounters Type Date Location Provider Dx Diagnosis Office Visit 06/24/2021 2:30p Family Medicine [facility] GINA Lozano L03.115 Cellulitis of right lower li mb L40.9 Psoriasis, unspecified Office Visit 06/13/2021 10:30a Family [facility] GINA Lozano M79.646 Pain in unspecified finger(s ) L40.9 Psoriasis, unspecified D69.6 Thrombocytopenia, unspecifie d K21.9 Gastro-esophageal reflux dis ease without esophagitis K75.81 Nonalcoholic steatohepatitis ([place]) I10 Essential (primary) hyperten wayne Office Visit 01/15/2021 10:30a Family Medicine [facility] GINA [place] K75.81 Nonalcoholic steatohepatitis ([place]) K21.9 [...] 09/17/2021 2:00 pm - GINA Lozano at [facility] Functional Status Description No Information Available Mental Status Description No Information Available Referrals Description No Information Available
--- OUTSIDE RECORDS SUMMARY | 2021-09-02 00:33 | CCD | Continuity of Care Document ---
Author Author Ramonita GREEN Organization [place] [address] Phone [phone] Care Team Providers Care Business Development Sales Executive Name Role Phone Brittanie Howard D.O. AUTM Fredrick Dewitt M.D. AUTM [phone] Carla Gorman NP AUTM [phone] Problems Active Problems Provider Date Cirrhosis - [...] SIG Qnty Indications Ordering Provide r Date Furosemide 20mg Tablets 1 by mouth every day 90tabs Brittanie Howard D.O. 06/13 Blood Pressure Monitor Automatic/Arm/X-L arge Cuff Device prognosis: good. duration: 99 1units I10 Erik Sow.ONanda 06/13/2021 Pantoprazole Sodium 20mg Tablets D R Take One Tablet By Mouth Daily 90tabs K21.9 Erik Medina.O. 10/04/2020 Sucralfate 1gm Tablets 1 by mouth daily 90tabs Erik Medina.O. 12/04/2019 Clobetasol Propionate E 0.05% Crea m apply to rash areas on the plamar hands and plantar feet twice daily for seven days as needed for flares 60gm L40.9 Erik Medina.ONanda Levocetirizine Dihydrochloride 5mg Tablets take one tablet by mouth at bedtime 90tabs Erik Medina.ONanda 11/03/2019 Spironolactone 100mg Tablets Take One Tablet By Mouth Daily 90tabs Erik Medina.ONanda Nadolol 20mg Tablets 1 by mouth twice daily 60tabs Erik Medina.O. Vitamin D3 Maximum Strength 5000Unit Capsules take one table by mouth daily Unknown Vitamin A 23595Mpsh Capsules 1 by mouth daily Unknown Selenium 200mcg Tablets 1 by mouth daily Unknown Sulpherzyme 2 tablets daily Unknown 00 Magnesium 400mg Tablets one tablet by mouth once per day Unknown Fish Oil 1200mg Capsules DR 1 by mouth every day Unknown Coq-10 400mg Capsules 1 by mouth daily Unknown Cinnamon 500mg Tablets 2 by mouth once daily Unknown Calcium 1200 9877-7125yn-Gozj Chew tabs 1 tablets by mouth once per day Unknown Vitamin C 1000mg Tablets 1 by mouth every day Unknown Medications Administered in Office Medication SIG Qnty Indications Ordering Provider Date Injection Ceftriaxone Sodium Per 250 MG (Rocephin) Injection GINA Moreno 10/08/2020 Immunizations Description No Information Available Vital Signs Date Vital Result Comment 06/13/2021 10:30am BP Systolic 144 mmHg BP Diastolic 80 mmHg Height 63.8 inches 5'3.80" Weight 236.38 lb BMI (Body Mass Index) 40.8 kg/m2 Heart Rate 59 /min Respiratory Rate 14 /min Body Temperature 97.0 F O2 % BldC Oximetry 98 % [place] Body Weight 115 lb 01/15/2021 10:38am BP Systolic 130 mmHg BP Diastolic 74 mmHg Height 63.8 inches 5'3.80" Weight 238.38 lb BMI (Body Mass Index) 41.2 kg/m2 Heart Rate 77 /min Respiratory Rate 18 /min Body Temperature 98.2 F O2 % BldC Oximetry 97 % [place] Body Weight 115 lb Results Description No Information Available Procedures Date Code Description Status 06/13/2021 49591 Office/Outpatient Established Mo d MDM 30-39 Min Completed 01/15/2021 56367 Office/Outpatient Established Mo d MDM 30-39 Min Completed Medical Devices Description No Information Available Encounters Type Date Location Provider Dx Diagnosis Office Visit 06/13/2021 10:30a Family Medicine [facility] GINA Lozano M79.646 Pain in unspecified finger(s ) L40.9 Psoriasis, unspecified D69.6 Thrombocytopenia, unspecifie d K21.9 Gastro-esophageal reflux dis ease without esophagitis K75.81 Nonalcoholic steatohepatitis ([place]) I10 Essential (primary) hyperten wayne Office Visit 01/15/2021 10:30a [facility] GINA Lozano K75.81 Nonalcoholic steatohepatitis ([place]) K21.9 Gastro-esophageal reflux dis ease without esophagitis L40.9 Psoriasis, unspecified D69.6 Thrombocytopenia, unspecifie d I10 Essential (primary) hyperten way[place] Z12.31 Encntr screen mammogram for malignant neoplasm of breast Assessments Date Code Description Provider 06/13/2021 M79.646 Pain in unspecified finger(s) GINA [...] unspecified GINA Beatty 01/15/2021 D69.6 Thrombocytopenia, unspecified [place] GINA Batista 01/15/2021 I10 Essential (primary) hypertension GINA Lozano 01/15/2021 Z12.31 Encounter for screen ing mammogram for malignant neoplasm of breast GINA Lozano Plan of Treatment Future Appointment(s):* 09/17/2021 2:00 pm - GINA Lozano at [facility] Functional Status Description No Information Available Mental Status Description No Information Available Referrals Description No Information Available
--- OUTSIDE RECORDS SUMMARY | 2021-09-02 00:33 | CCD | Continuity of Care Document ---
Author Author Ramonita GREEN Organization Unknown [place] [address] Phone [phone] Care Team Providers Care Profiler Hand Name Role Phone Brittanie Howard D.O. AUTM [phone] Fredrick Dewitt M.D. AUTM [phone] Carla Gorman NP AUTM [phone] Problems Active Problems Provider Date Cirrhosis - [...] table by mouth daily Unknown Vitamin A 98199Rogo Capsules 1 by mouth daily Unknown Selenium 200mcg Tablets 1 by mouth daily Unknown Sulpherzyme 2 tablets daily Unknown 00 Magnesium 400mg Tablets one tablet by mouth once per day Unknown Fish Oil 1200mg Capsules DR 1 by mouth every day Unknown Coq-10 400mg Capsules 1 by mouth daily Unknown Cinnamon 500mg Tablets 2 by mouth once daily Unknown Calcium 1200 2562-0942pd-Iihd Chew tabs 1 tablets by mouth once [...] F O2 % BldC Oximetry 97 % [place] Body Weight 115 lb 06/13/2021 10:30am BP Systolic 144 mmHg BP Diastolic 80 mmHg Height 63.8 inches 5'3.80" Weight 236.38 lb BMI (Body Mass Index) 40.8 kg/m2 Heart Rate 59 /min Respiratory Rate 14 /min Body Temperature 97.0 F O2 % BldC Oximetry 98 % [place] Body Weight 115 lb Results Description No Information Available Procedures Date Code Description Status 06/24/2021 29435 Office/Outpatient Established Lo w MDM 20-29 Min Completed 06/13/2021 77472 Office/Outpatient Established Mo d MDM 30-39 Min Completed 01/15/2021 68277 Office/Outpatient Established Mo d MDM 30-39 Min Completed Medical Devices Description No Information Available Encounters Type Date Location Provider Dx Diagnosis Office Visit 06/24/2021 2:30p Family Medicine [facility] GINA Lozano L03.115 Cellulitis of right lower li mb L40.9 Psoriasis, unspecified Office Visit 06/13/2021 10:30a Family [facility] GINA Lozano M79.646 Pain in unspecified finger(s ) L40.9 Psoriasis, unspecified D69.6 Thrombocytopenia, unspecifie d K21.9 Gastro-esophageal reflux dis ease without esophagitis K75.81 Nonalcoholic steatohepatitis ([place]) I10 Essential (primary) hyperten wayne Office Visit 01/15/2021 10:30a Family Medicine [facility] GINA [place] K75.81 Nonalcoholic steatohepatitis ([place]) [...] GINA Healy 01/15/2021 I10 Essential (primary) hypertension IGNA Lozano 01/15/2021 Z12.31 Encounter for screen ing mammogram for malignant neoplasm of breast GINA Lozano Plan of Treatment Future Appointment(s):* 09/17/2021 2:00 pm - GINA Lozano at [facility] Functional Status Description No Information Available Mental Status Description No Information Available Referrals Description No Information Available
--- OUTSIDE RECORDS SUMMARY | 2021-09-02 00:33 | CCD | Continuity of Care Document ---
Author Author Ramonita GREEN Organization [place] [address] Phone [phone] Care Team Providers Care Gas Meter Installer Name Role Phone Brittanie Howard D.O. AUTM [phone] Fredrick Dewitt M.D. AUTM [phone] Carla Gorman NP AUTM [phone] Problems Active Problems Provider Date Cirrhosis - [...] table by mouth daily Unknown Vitamin A 93190Nbgo Capsules 1 by mouth daily Unknown Selenium 200mcg Tablets 1 by mouth daily Unknown Sulpherzyme 2 tablets daily Unknown 00 Magnesium 400mg Tablets one tablet by mouth once per day Unknown Fish Oil 1200mg Capsules DR 1 by mouth every day Unknown Coq-10 400mg Capsules 1 by mouth daily Unknown Cinnamon 500mg Tablets 2 by mouth once daily Unknown Calcium 1200 9346-4339jh-Bafh Chew tabs 1 tablets by mouth once [...] F O2 % BldC Oximetry 97 % [place] Body Weight 115 lb 06/13/2021 10:30am BP Systolic 144 mmHg BP Diastolic 80 mmHg Height 63.8 inches 5'3.80" Weight 236.38 lb BMI (Body Mass Index) 40.8 kg/m2 Heart Rate 59 /min Respiratory Rate 14 /min Body Temperature 97.0 F O2 % BldC Oximetry 98 % [place] Body Weight 115 lb Results Description No Information Available Procedures Date Code Description Status 06/24/2021 51959 Office/Outpatient Established Lo w MDM 20-29 Min Completed 06/13/2021 29341 Office/Outpatient Established Mo d MDM 30-39 Min Completed 01/15/2021 21676 Office/Outpatient Established Mo d MDM 30-39 Min Completed Medical Devices Description No Information Available Encounters Type Date Location Provider Dx Diagnosis Office Visit 06/24/2021 2:30p Family Medicine [facility] GINA Lozano L03.115 Cellulitis of right lower li mb L40.9 Psoriasis, unspecified Office Visit 06/13/2021 10:30a Family [facility] GINA Lozano M79.646 Pain in unspecified finger(s ) L40.9 Psoriasis, unspecified D69.6 Thrombocytopenia, unspecifie d K21.9 Gastro-esophageal reflux dis ease without esophagitis K75.81 Nonalcoholic steatohepatitis ([place]) I10 Essential (primary) hyperten wayne Office Visit 01/15/2021 10:30a [place] [facility] [place] [place]INA [place] K75.81 Nonalcoholic steatohepatitis ([place]) K21.9 [...]
--- OUTSIDE RECORDS SUMMARY | 2021-09-02 00:33 | CCD | Continuity of Care Document ---
Author Author Ramonita GREEN Organization [place] [address] Phone [phone] Care Team Providers Care Vice President Network Development Name Role Phone Brittanie Howard D.O. AUTM Fredrick Dewitt M.D. AUTM [phone] Carla Gorman NP AUTM [phone] Problems Active Problems Provider Date Cirrhosis - [...] table by mouth daily Unknown Vitamin A 07810Ufny Capsules 1 by mouth daily Unknown Selenium 200mcg Tablets 1 by mouth daily Unknown Sulpherzyme 2 tablets daily Unknown 00 Magnesium 400mg Tablets one tablet by mouth once per day Unknown Fish Oil 1200mg Capsules DR 1 by mouth every day Unknown Coq-10 400mg Capsules 1 by mouth daily Unknown Cinnamon 500mg Tablets 2 by mouth once daily Unknown Calcium 1200 0890-2451ui-Ejfe Chew tabs 1 tablets by mouth once [...] F O2 % BldC Oximetry 98 % [place] Body Weight 115 lb 01/15/2021 10:38am BP Systolic 130 mmHg BP Diastolic 74 mmHg Height 63.8 inches 5'3.80" Weight 238.38 lb BMI (Body Mass Index) 41.2 kg/m2 Heart Rate 77 /min Respiratory Rate 18 /min Body Temperature 98.2 F O2 % BldC Oximetry 97 % [place] Body Weight 115 lb Results Description No Information Available Procedures Date Code Description Status 06/13/2021 54893 Office/Outpatient Established Mo d MDM 30-39 Min Completed 01/15/2021 91788 Office/Outpatient Established Mo d MDM 30-39 Min Completed Medical Devices Description No Information Available Encounters Type Date Location Provider Dx Diagnosis Office Visit 06/13/2021 10:30a Family Medicine [facility] GINA Lozano M79.646 Pain in unspecified finger(s ) L40.9 Psoriasis, unspecified D69.6 Thrombocytopenia, unspecifie d K21.9 Gastro-esophageal reflux dis ease without esophagitis K75.81 Nonalcoholic steatohepatitis ([place]) I10 Essential (primary) hyperten wayne Office Visit 01/15/2021 10:30a [facility] GINA Lozano K75.81 Nonalcoholic steatohepatitis ([place]) K21.9 [...] K21.9 Gastro-esophageal reflux disease without esophagitis GINA oLzano 01/15/2021 L40.9 Psoriasis, unspecified GINA Beatty 01/15/2021 D69.6 Thrombocytopenia, unspecified [place] GINA Batista 01/15/2021 I10 Essential (primary) hypertension GINA Lozano 01/15/2021 Z12.31 Encounter for screen ing mammogram for malignant neoplasm of breast GINA Lozano Plan of Treatment Future Appointment(s):* 09/17/2021 2:00 pm - GINA Lozano at [facility] 06/13/2021 - GINA Lozano* M79.646 Pain in unspecified finger(s)* New Labs:* Uric Acid, Scheduled: 06/13/21 * Rheumatoid Factor Quant, Scheduled: 06/13/21 * Cyclic Citrullinated Peptide Igg, Scheduled: 06/13/21 * Erythrocyte Sedimentation Rate, Scheduled: 06/13/21 * High Sensitivity C-Reactive Protein, Scheduled: 06/13/21 * Sana Titer & Pattern, Scheduled: 06/13/21 * CBC With Differential, Scheduled: 06/13/21 * Comments:* Primarily involving the bilateral index fingers and right middle finger. * Follow up:* 3 month medicare wellness * L40.9 Psoriasis, unspecified* Comments:* Follow up with [facility] Nurse Practitioners for continued treatment * D69.6 Thrombocytopenia, unspecified* Comments:* chronic and in your typical level of 60's. please get labs to recheck * K21.9 Gastro-esophageal reflux disease without esophagitis* Comments:* Continue with your Protonix 20 mg. Overall symptoms well controlled * K75.81 Nonalcoholic steatohepatitis ([place])* Comments:* continue with regular follow up with GI * I10 Essential (primary) hypertension* New Medication:* Blood Pressure Monitor Automatic/Arm/X-Large Cuff - prognosis: good. duration: 99 * Comments:* Inconsistently taking Furosemide. Continue with Spironolactone. Elevated BP in the office today. Please try to monitor at home. Functional Status Description No Information Available Mental Status Description No Information Available Referrals Description No Information Available
--- OUTSIDE RECORDS SUMMARY | 2021-09-02 00:34 | CCD ---
Author Author [facility] Organization [facility] Address Unknown Phone Unavailable Care Team Providers Care Farmer Vegetable Name Role Phone Montgomery, Didi SENIOR ENVIRONMENTAL PRACTICE LEADER Unavailable Unavailable Montgomery, Didi SENIOR ENVIRONMENTAL PRACTICE LEADER Unavailable Unavailable Montgomery, Didi SENIOR ENVIRONMENTAL PRACTICE LEADER Unavailable Unavailable Montgomery, Didi SENIOR ENVIRONMENTAL PRACTICE LEADER Unavailable Unavailable Montgomery, Didi SENIOR ENVIRONMENTAL PRACTICE LEADER Unavailable Unavailable Montgomery, Didi SENIOR ENVIRONMENTAL PRACTICE LEADER Unavailable Unavailable Montgomery, Didi SENIOR ENVIRONMENTAL PRACTICE LEADER Unavailable Unavailable Montgomery, Didi SENIOR ENVIRONMENTAL PRACTICE LEADER Unavailable Unavailable Montgomery, Didi SENIOR ENVIRONMENTAL PRACTICE LEADER Unavailable Unavailable Montgomery, Didi SENIOR ENVIRONMENTAL PRACTICE LEADER Unavailable Unavailable Montgomery, Didi SENIOR ENVIRONMENTAL PRACTICE LEADER Unavailable Unavailable Montgomery, Didi SENIOR ENVIRONMENTAL PRACTICE LEADER Unavailable Unavailable Montgomery, Didi SENIOR ENVIRONMENTAL PRACTICE LEADER Unavailable Unavailable Montgomery, Didi SENIOR ENVIRONMENTAL PRACTICE LEADER Unavailable Unavailable Montgomery, Didi SENIOR ENVIRONMENTAL PRACTICE LEADER Unavailable Unavailable Montgomery, Didi SENIOR ENVIRONMENTAL PRACTICE LEADER Unavailable Unavailable Montgomery, Didi SENIOR ENVIRONMENTAL PRACTICE LEADER Unavailable Unavailable Montgomery, Didi SENIOR ENVIRONMENTAL PRACTICE LEADER Unavailable Unavailable Montgomery, Didi SENIOR ENVIRONMENTAL PRACTICE LEADER Unavailable Unavailable Montgomery, Didi SENIOR ENVIRONMENTAL PRACTICE LEADER Unavailable Unavailable Montgomery, Didi SENIOR ENVIRONMENTAL PRACTICE LEADER Unavailable Unavailable Montgomery, Didi SENIOR ENVIRONMENTAL PRACTICE LEADER Unavailable Unavailable Montgomery, Didi SENIOR ENVIRONMENTAL PRACTICE LEADER Unavailable Unavailable Montgomery, Didi SENIOR ENVIRONMENTAL PRACTICE LEADER Unavailable Unavailable Montgomery, Didi SENIOR ENVIRONMENTAL PRACTICE LEADER Unavailable Unavailable Montgomery, Didi SENIOR ENVIRONMENTAL PRACTICE LEADER Unavailable Unavailable Montgomery, Didi SENIOR ENVIRONMENTAL PRACTICE LEADER Unavailable Unavailable Montgomery, Didi SENIOR ENVIRONMENTAL PRACTICE LEADER Unavailable Unavailable Montgomery, Didi SENIOR ENVIRONMENTAL PRACTICE LEADER Unavailable Unavailable Montgomery, Didi SENIOR ENVIRONMENTAL PRACTICE LEADER Unavailable Unavailable Montgomery, Didi SENIOR ENVIRONMENTAL PRACTICE LEADER Unavailable Unavailable Montgomery, Didi SENIOR ENVIRONMENTAL PRACTICE LEADER Unavailable Unavailable Montgomery, Didi SENIOR ENVIRONMENTAL PRACTICE LEADER Unavailable Unavailable Montgomery, Didi SENIOR ENVIRONMENTAL PRACTICE LEADER Unavailable Unavailable Montgomery, Didi SENIOR ENVIRONMENTAL PRACTICE LEADER Unavailable Unavailable Montgomery, Didi SENIOR ENVIRONMENTAL PRACTICE LEADER Unavailable Unavailable O'lorie, A Yassine PA Unavailable Unavailable O'lorie, A Yassine PA Unavailable Unavailable O'lorie, A Yassine PA Unavailable Unavailable O'lorie, A Yassine PA Unavailable Unavailable O'lorie, A Yassine PA Unavailable Unavailable O'lorie, A Yassine PA Unavailable Unavailable O'lorie, A Yassine PA Unavailable Unavailable O'lorie, A Yassine PA Unavailable Unavailable O'lorie, A Yassine PA Unavailable Unavailable O'lorie, A Yassine PA Unavailable Unavailable O'lorie, A Yassine PA Unavailable Unavailable O'lorie, A Yassine PA Unavailable Unavailable O'lorie, A Yassine PA Unavailable Unavailable O'lorie, A Yassine PA Unavailable Unavailable O'lorie, A Yassine PA Unavailable Unavailable O'lorie, A Yassine PA Unavailable Unavailable O'lorie, A Yassine PA Unavailable Unavailable O'lorie, A Yassine PA Unavailable Unavailable O'lorie, A Yassine PA Unavailable Unavailable O'lorie, A Yassine PA Unavailable Unavailable O'lorie, A Yasisne PA Unavailable Unavailable O'lorie, A Yassine PA Unavailable Unavailable O'lorie, A Yassine PA Unavailable Unavailable O'lorie, A Yassine PA Unavailable Unavailable O'lorie, A Yassine PA Unavailable Unavailable O'lorie, A Yassine PA Unavailable Unavailable O'lorie, A Yassine PA Unavailable Unavailable O'lorie, A Yassine PA Unavailable Unavailable O'lorie, A Yassine PA Unavailable Unavailable O'lorie, A Yassine PA Unavailable Unavailable O'lorie, A Yassine PA Unavailable Unavailable O'lorie, A Yassine PA Unavailable Unavailable O'lorie, A Yassine PA Unavailable Unavailable Lockerbie, S Sasha SENIOR ENVIRONMENTAL PRACTICE LEADER-C Unavailable Unavailable Lockerbie, S Sasha SENIOR ENVIRONMENTAL PRACTICE LEADER-C Unavailable Unavailable Lockerbie, S Sasha SENIOR ENVIRONMENTAL PRACTICE LEADER-C Unavailable Unavailable Lockerbie, S Sasha SENIOR ENVIRONMENTAL PRACTICE LEADER-C Unavailable Unavailable Lockerbie, S Sasha SENIOR ENVIRONMENTAL PRACTICE LEADER-C Unavailable Unavailable Lockerbie, S Sasha SENIOR ENVIRONMENTAL PRACTICE LEADER-C Unavailable Unavailable Lockerbie, S Sasha SENIOR ENVIRONMENTAL PRACTICE LEADER-C Unavailable Unavailable Lockerbie, S Sasha SENIOR ENVIRONMENTAL PRACTICE LEADER-C Unavailable Unavailable Lockerbie, S Sasha SENIOR ENVIRONMENTAL PRACTICE LEADER-C Unavailable Unavailable Lockerbie, S Sasha SENIOR ENVIRONMENTAL PRACTICE LEADER-C Unavailable Unavailable Lockerbie, S Sasha SENIOR ENVIRONMENTAL PRACTICE LEADER-C Unavailable Unavailable Lockerbie, S Sasha SENIOR ENVIRONMENTAL PRACTICE LEADER-C Unavailable Unavailable Lockerbie, S Sasha SENIOR ENVIRONMENTAL PRACTICE LEADER-C Unavailable Unavailable Lockerbie, S Sasha SENIOR ENVIRONMENTAL PRACTICE LEADER-C Unavailable Unavailable Lockerbie, S Sasha SENIOR ENVIRONMENTAL PRACTICE LEADER-C Unavailable Unavailable Lockerbie, S Sasha SENIOR ENVIRONMENTAL PRACTICE LEADER-C Unavailable Unavailable Lockerbie, S Sasha SENIOR ENVIRONMENTAL PRACTICE LEADER-C Unavailable Unavailable Lockerbie, S Sasha SENIOR ENVIRONMENTAL PRACTICE LEADER-C Unavailable Unavailable Lockerbie, S Sasha SENIOR ENVIRONMENTAL PRACTICE LEADER-C Unavailable Unavailable Lockerbie, S Sasha SENIOR ENVIRONMENTAL PRACTICE LEADER-C Unavailable Unavailable Lockerbie, S Sasha SENIOR ENVIRONMENTAL PRACTICE LEADER-C Unavailable Unavailable Lockerbie, S Ssaha SENIOR ENVIRONMENTAL PRACTICE LEADER-C Unavailable Unavailable Lockerbie, S Sasha SENIOR ENVIRONMENTAL PRACTICE LEADER-C Unavailable Unavailable Lockerbie, S Sasha SENIOR ENVIRONMENTAL PRACTICE LEADER-C Unavailable Unavailable Re-disclosure Warning The records that you are about to access may contain information from federally-assisted alcohol or drug abuse programs. If such information is present, then the following federally mandated warning applies: This information has been disclosed to you from records protected by federal confidentiality rules (42 CFR part 2). The federal rules prohibit you from making any further disclosure of this information unless further disclosure is expressly permitted by the written consent of the person to whom it pertains or as otherwise permitted by 42 CFR part 2. A general authorization for the release of medical or other information is NOT sufficient for this purpose. The Federal rules restrict any use of the information to criminally investigate or prosecute any alcohol or drug abuse patient.The records that you are about to access may contain highly sensitive health information, the redisclosure of which is protected by Article 27-F of the [facility] Public Health law. If you continue you may have access to information: Regarding HIV / AIDS; Provided by facilities licensed or operated by the [facility] Office of Mental Health; or Provided by the [facility] Office for People With Developmental Disabilities. If such information is present, then the following [facility] mandated warning applies: This information has been disclosed to you from confidential records which are protected by state law. State law prohibits you from making any further disclosure of this information without the specific written consent of the person to whom it pertains, or as otherwise permitted by law. Any unauthorized further disclosure in violation of state law may result in a fine or fpc sentence or both. A general authorization for the release of medical or other information is NOT sufficient authorization for further disc losure. Family History Family Member Name Family Member Gender Family Member Status Date o f Status Description Data Source(s) Unknown Male Problem [facility] ([facility]) Unknown Unknown Problem [facility] ([facility]) mgm Encounters Encounter Providers Location Date Indications Data Source(s ) Outpatient Attender: Yassine FUENTES [facility] 06/24/2021 02:30:00 PM EDT [facility] ([facility]) Outpatient Attender: Yassine FUENTES [facility] 06/13/2021 10:30:00 AM EDT [facility] ([facility]) Outpatient Attender: Carla White [facility] Main Office 05/07/2021 12:00:00 PM EDT [facility] ([facility] Outpatient Attender: Carla White [facility] Main Office 02/10/2021 11:00:00 AM EDT [facility] ([facility]) Outpatient Attender: Caral White [facility] Main Office 02/05/2021 11:00:00 AM EDT [facility] ([facility]) Outpatient Attender: Sasha Kathy [facility] Main Office 01/30/2021 10:45:00 AM EDT [facility] ([facility]) Outpatient Attender: Carla White [facility] Main Office 01/28/2021 11:00:00 AM EDT [facility] ([facility]) Outpatient Attender: Carla White [facility] Main Office 01/23/2021 10:00:00 AM EST [facility] ([facility]) Outpatient Attender: Carla White [facility] Main Office 01/21/2021 10:00:00 AM EST [facility] ([facility]) Outpatient Attender: Carla White [facility] Main Office 01/16/2021 10:00:00 AM EST [facility] ([facility]) Outpatient Attender: Yassine FUENTES [facility] 01/15/2021 09:30:00 AM EST [facility] ([facility]) Outpatient Attender: Carla White [facility] Main Office 01/14/2021 10:00:00 AM EST [facility] ([facility]) Outpatient Attender: Carla White [facility] Main Office 01/09/2021 10:00:00 AM EST [facility] ([facility]) Outpatient Attender: Carla White [facility] Main Office 01/07/2021 10:00:00 AM EST [facility] ([facility]) Outpatient Attender: Carla White [facility] Main Office 01/02/2021 10:00:00 AM EST [facility] ([facility]) Outpatient Attender: Carla White [facility] Main Office 12/25/2020 09:45:00 AM EST [facility] ([facility]) Outpatient Attender[facility] Carla White [facility] Main Office 12/23/2020 09:45:00 AM EST [facility] ([facility]) Outpatient Attender: Carla White [facility] Main Office 12/11/2020 09:45:00 AM EST [facility] ([facility]) Outpatient Attender: Carla White [facility] Main Office 12/10/2020 09:30:00 AM EST [facility] ([facility]) Outpatient Attender: Carla White [facility] Main Office 12/09/2020 09:30:00 AM EST [facility] ([facility]) Outpatient Attender: Sashaonur Chavez [facility] Main [facility] 12/03/2020 10:00:00 AM EST [facility] Out[facility] Attender: Yassine FUENTES [facility] 10/16/2020 08:40:00 AM EST [facility] ([facility]) Outpatient Attender: Yassine FUENTES [facility] 10/08/2020 09:20:00 AM EST [facility] ([facility]) Outpatient Attender: Yassine FUENTES [facility] 09/30/2020 10:30:00 AM EST [facility] ([facility]) Immunizations Vaccine Date Status Description Data Source(s) COVID-19 VACCINE [facility] 02/17/2021 12:00:00 AM EDT completed [facility] Vaccine Series Complete: YESThis Data wa s Submitted to [facility] [employer]. Medications Medication Brand Name Start Date Product Form Dose Route Admi nistrative Instructions Pharmacy Instructions Status Indications Reaction Description Data Source(s) Emollient Clobetasol Propionate 0.5 MG/ML Topical Crea m 0.05 % CLOBETASOL PROPIONATE/EMOLL 06/25/2021 12:00:00 AM EDT cream 60 APPLY TO RASH AREAS ON THE PLAMAR HANDS AND PLANTAR FEET TWICE DAILY FOR 7 DAYS NEEDED FOR FLARES APPLY TO RASH AREAS ON THE PLAMAR HANDS AND PLANTAR FEET TWICE DAILY FOR 7 DAYS NEEDED FOR FLARES SOLD: 06/25/2021 [facility] 800-160 mg 06/24/2021 12:00:00 AM EDT tablet 20 TAKE ONE TABLET BY MOUTH EVERY 12 HOURS FOR 10 DAYS TAKE ONE TABLET BY MOUTH EVERY 12 HOURS FOR 10 DAYS SOLD: 06/24/2021 [facility] Sulfamethoxazole 800 MG / Trimethoprim 160 MG Oral Tablet [B actrim] Bactrim DS 06/24/2021 12:00:00 AM EDT ORAL active [facility] ([facility]) Injection Ceftriaxone Sodium Per 250 MG (Rocephin) 06/24/2021 12:00:00 AM EDT completed [facility] ([facility]) Medication administered onsite Injection Ceftriaxone Sodium Per 250 MG (Rocephin) 06/24/2021 12:00:00 AM EDT completed [facility] ([facility]) Medication administered onsite Furosemide 20 MG Oral Tablet Furosemide 06/13/2021 12:00:00 AM EDT ORAL active [facility] ([facility] Blood Pressure Monitor Automatic/Arm/X-Large Cuff 06/13/2021 12:00:00 AM EDT active [facility] ( [facility]) 20 mg 05/13/2021 12:00:00 AM EDT tablet 60 TAKE ONE TABLET BY MOUTH TWICE A DAY TAKE ONE TABLET BY MOUTH TWICE A DAY SOLD: 05/13/2021 [facility] 0.1 % 12/04/2020 12:00:00 AM EST lotion 60 APPLY TO TRUNK AND EXTREMITIES TWO TIMES A DAY FOR 2 WEEKS THEN THREE TIMES WEEKLY NEEDED DIRECTED APPLY TO TRUNK AND EXTREMITIES TWO TIMES A DAY FOR 2 WEEKS THEN THREE TIMES WEEKLY NEEDED DIRECTED SOLD: 12/05/2020 [facility] 0.1 % 12/04/2020 12:00:00 AM EST lotion 60 APPLY TO TRUNK AND EXTREMITIES TWO TIMES A DAY FOR 2 WEEKS THEN THREE TIMES WEEKLY NEEDED DIRECTED APPLY TO TRUNK AND EXTREMITIES TWO TIMES A DAY FOR 2 WEEKS THEN THREE TIMES WEEKLY NEEDED DIRECTED SOLD: 02/11/2021 [facility] 0.1 % 12/04/2020 12:00:00 AM EST lotion 60 APPLY TO TRUNK AND EXTREMITIES TWO TIMES A DAY FOR 2 WEEKS THEN THREE TIMES WEEKLY NEEDED DIRECTED APPLY TO TRUNK AND EXTREMITIES TWO TIMES A DAY FOR 2 WEEKS THEN THREE TIMES WEEKLY NEEDED DIRECTED SOLD: 12/26/2020 [facility] Betamethasone 1 MG/ML Topical Lotion Betamethasone Valerate 12/03/2020 12:00:00 AM EST active [facility] Sulfamethoxazole 800 MG / Trimethoprim 160 MG Oral Tab let 800-160 mg SULFAMETHOXAZOLE/TRIMETHOPRIM 10/08/2020 12:00:00 AM EST tablet 20 TAKE ONE TABLET BY MOUTH EVERY 12 HOURS FOR 10 DAYS TAKE ONE TABLET BY MOUTH EVERY 12 HOURS FOR 10 DAYS SOLD: 10/08/2020 [facility] Mupirocin 0.02 MG/MG Topical Ointment Mupirocin 10/08/2020 12:00:00 AM EST completed [facility] ([facility]) Sulfamethoxazole 800 MG / Trimethoprim 160 MG Oral Tablet [B actrim] Bactrim DS 10/08/2020 12:00:00 AM EST ORAL completed [facility] ([facility]) Injection Ceftriaxone Sodium Per 250 MG (Rocephin) 10/08/2020 12:00:00 AM EST completed [facility] ([facility]) Medication administered onsite 2 % 10/08/2020 12:00:00 AM EST ointment 22 APPLY 1 GRAM OF OINTMENT AROUND RIGHT FOOT AREA TWO TIMES A DAY APPLY 1 GRAM OF OINTMENT AROUND RIGHT FO OT AREA TWO TIMES A DAY SOLD: 10/08/2020 [facility] pantoprazole 20 MG Delayed Release Oral Tablet Pantoprazole Sodium 10/04/2020 12:00:00 AM EST active M [facility] ([facility]) 300 mg 09/25/2020 12:00:00 AM EST capsule 30 TAKE ONE CAPSULE BY MOUTH THREE TIMES A DAY TAKE ONE CAPSULE BY MOUTH THREE TIMES A DAY SOLD: 09/25/2020 [facility] Insurance Providers Payer name Policy type / Coverage type Policy ID Covered republican ID Covered republican's relationship to elmore Policy [place] Plan Information [facility] [employer] [id number] Self [id number] [facility] [employer] Commercial [id number] Self [facility] [id number] Tonya [id number] Medicare Part B [facility] [id number] 0 [id number] Medicare Part B [facility] [id number] 0 [id number] [facility] [id number] 0 [id number] [place] Primary [id number] Self [id number] Medicare Natl Govt Servic Medicare Primary [id number] Self [id number] [place] Primary [id number] Self [id number] Medicare Natl Govt Servic Medicare Primary [id number] Self [id number] [facility] [id number] Commercial Insurance [id number] Medicare [id number] Medicare [id number] [facility] Commercial [id number] Self [id number] Medicare Natl Gov't Servi Medicare Primary [id number] Self [id number] MEDICARE C [id number] S [id number] D [facility] Commercial [id number] Self [id number] Medicare Natl Gov't Servi Medicare Primary [id number] Self [id number] Medicare Natl Govt Servic Medicare Primary [id number] Self [id number] [facility] HEALTH CARE [id number] SP [id number] Medicare Natl Govt Servic Medicare Primary [id number] Self [id number] [facility] C [id number] S [id number] MEDICARE [id number] SP [id number] D MEDICARE C [id number] S [id number] A [facility] C [id number] S [id number] MEDICARE [id number] SP [id number] A [facility] Commercial [id number] Self [id number] Medicare Natl Gov't Servi Medicare Primary [id number] Self [id number] Medicare Natl Govt Servic Medicare Primary [id number] Self [id number] Medicare Natl Govt Servic Medicare Primary [id number] Self [id number] [facility] Commercial [id number] Self [id number] [facility] (HMO/PPO) HEALTH CARE [id number] 0 [id number] [facility] Commercial [id number] Self [facility] [id number] SP [id number] [facility] HEALTH CARE [id number] SP [id number] MEDICARE [id number] SP [id number] MEDICARE C [id number] S [id number] [facility] HEALTH CARE O [id number] S [id number] Medicare [place] Medicare Primary [id number] Self [id number] [facility] Commercial [id number] Self [id number] Problems, Conditions, and Diagnoses Code Display Name Description Problem Type Effective Dates Data Source(s) I10 Essential hypertension Essential hypertension Problem 06/13/2021 12:00:00 AM EDT [facility] ([facility]) L40.9 Psoriasis Psoriasis Problem 01/15/2021 12:00:00 AM ES T [facility] ([facility]) Surgeries/Procedures Procedure Description Date Indications Data Source(s) OFFICE OUTPATIENT VISIT 15 MINUTES 06/24/2021 12:00:00 AM EDT [facility] ([facility]) OFFICE OUTPATIENT VISIT 25 MINUTES 06/13/2021 12:00:00 AM EDT [facility] ([facility]) OFFICE OUTPATIENT VISIT 15 MINUTES 05/07/2021 12:00:00 AM EDT [facility] ([facility]) OFFICE OUTPATIENT VISIT 15 MINUTES 02/10/2021 12:00:00 AM EDT [facility] ([facility]) PHOTOCHEMOTX TAR&UVB/PETROLATUM/UVB 02/05/2021 12:00:0 0 AM EDT [facility] ([facility]) OFFICE OUTPATIENT VISIT 15 MINUTES 02/05/2021 12:00:00 AM EDT [facility] ([facility]) PHOTOCHEMOTX TAR&UVB/PETROLATUM/UVB 01/30/2021 12:00:0 0 AM EDT [facility] ([facility]) OFFICE OUTPATIENT VISIT 15 MINUTES 01/30/2021 12:00:00 AM EDT [facility] ([facility]) PHOTOCHEMOTX TAR&UVB/PETROLATUM/UVB 01/28/2021 12:00:0 0 AM EDT [facility] ([facility]) OFFICE OUTPATIENT VISIT 15 MINUTES 01/28/2021 12:00:00 AM EDT [facility] ([facility]) PHOTOCHEMOTX TAR&UVB/PETROLATUM/UVB 01/23/2021 12:00:0 0 AM EST [facility] ([facility]) OFFICE OUTPATIENT VISIT 15 MINUTES 01/23/2021 12:00:00 AM EST [facility] ([facility]) PHOTOCHEMOTX TAR&UVB/PETROLATUM/UVB 01/21/2021 12:00:0 0 AM EST [facility] ([facility]) OFFICE OUTPATIENT VISIT 15 MINUTES 01/21/2021 12:00:00 AM EST [facility] ([facility]) PHOTOCHEMOTX TAR&UVB/PETROLATUM/UVB 01/16/2021 12:00:0 0 AM EST [facility] ([facility]) OFFICE OUTPATIENT VISIT 15 MINUTES 01/16/2021 12:00:00 AM EST [facility] ([facility]) OFFICE OUTPATIENT VISIT 25 MINUTES 01/15/2021 12:00:00 AM EST [facility] ([facility]) PHOTOCHEMOTX TAR&UVB/PETROLATUM/UVB 01/14/2021 12:00:0 0 AM EST [facility] ([facility]) OFFICE OUTPATIENT VISIT 15 MINUTES 01/14/2021 12:00:00 AM EST [facility] ([facility]) PHOTOCHEMOTX TAR&UVB/PETROLATUM/UVB 01/09/2021 12:00:0 0 AM EST [facility] ([facility]) OFFICE OUTPATIENT VISIT 15 MINUTES 01/09/2021 12:00:00 AM EST [facility] ([facility]) PHOTOCHEMOTX TAR&UVB/PETROLATUM/UVB 01/07/2021 12:00:0 0 AM EST [facility] ([facility]) OFFICE OUTPATIENT VISIT 15 MINUTES 01/07/2021 12:00:00 AM EST [facility] ([facility]) PHOTOCHEMOTX TAR&UVB/PETROLATUM/UVB 01/02/2021 12:00:0 0 AM EST [facility] ([facility]) OFFICE OUTPATIENT VISIT 15 MINUTES 01/02/2021 12:00:00 AM EST [facility] ([facility]) PHOTOCHEMOTX TAR&UVB/PETROLATUM/UVB 12/25/2020 12:00:0 0 AM EST [facility] ([facility]) OFFICE OUTPATIENT VISIT 15 MINUTES 12/25/2020 12:00:00 AM EST [facility] ([facility]) PHOTOCHEMOTX TAR&UVB/PETROLATUM/UVB 12/23/2020 12:00:0 0 AM EST [facility] ([facility]) OFFICE OUTPATIENT VISIT 15 MINUTES 12/23/2020 12:00:00 AM EST [facility] ([facility]) PHOTOCHEMOTX TAR&UVB/PETROLATUM/UVB 12/11/2020 12:00:0 0 AM EST [facility] ([facility]) OFFICE OUTPATIENT VISIT 15 MINUTES 12/11/2020 12:00:00 AM EST [facility] ([facility]) PHOTOCHEMOTX TAR&UVB/PETROLATUM/UVB 12/10/2020 12:00:0 0 AM EST [facility] ([facility]) OFFICE OUTPATIENT VISIT 15 MINUTES 12/10/2020 12:00:00 AM EST [facility] ([facility]) PHOTOCHEMOTX TAR&UVB/PETROLATUM/UVB 12/09/2020 12:00:0 0 AM EST [facility] ([facility]) OFFICE OUTPATIENT VISIT 15 MINUTES 12/09/2020 12:00:00 AM EST [facility] ([facility]) OFFICE OUTPATIENT NEW 45 MINUTES 12/03/2020 12:00:00 A M EST [facility] ([facility]) Results ID Date Data Source [id number] 09/25/2020 07:11:00 AM EST [facility] ([facility]) Name Value Range Interpretation Code Description Data Shanda rce(s) Supporting Document(s) Erythrocyte sedimentation rate by Westergren method 9 mm/hr 0-30 Normal (applies to non-numeric results) [facility] ([facility]) Platelets reticulated/100 platelets in Blood by Automated count 3.3 % 0.0-9.59 Normal (applies to non-numeric results) [facility] ([facility]) ID Date Data Source [id number] 09/25/2020 07:11:00 AM EST [facility] ([facility]) Name Value Range Interpretation Code Description Data Shanda rce(s) Supporting Document(s) Red Blood Count 4.71 10 4.00-5.40 Normal (applies to non-numeric results) [facility] ([facility]) White Blood Count 13.7 10 4.0-10.0 Above high normal [facility] ([facility]) Hemoglobin 13.0 g/dL 12.0-15.5 Normal (applies to non-numeric resul ts) [facility] ([facility]) Mean Corpuscular Volume 87.0 fl 80.0-96.0 Normal ( applies to non-numeric results) [facility] ([facility]) Hematocrit 41.0 % 36.0-47.0 Normal (applies to non-numeric resul ts) [facility] ([facility]) Mean Corpuscular Hemoglobin 27.6 pg 27.0-33.0 Norm al (applies to non-numeric results) [facility] ([facility]) Platelet Count, Automated 57 10 150-450 Below low normal [facility] ([facility]) Red Cell Distribution Width 14.8 % 11.5-14.5 Above high normal [facility] ([facility]) Mean Corpuscular HGB Conc 31.7 g/dL 32.0-36.5 Below low normal [facility] ([facility]) Neutrophils % 92.0 % 36.0-66.0 Above high normal [facility] ([facility]) Eos % 0.4 % 0.0-3.0 Normal (applies to non-numeric resul ts) [facility] ([facility]) Lymph % 1.8 % 24.0-44.0 Below low normal [facility] ( [facility]) [place] % 5.0 % 0.0-5.0 Normal (applies to non-numeric resul ts) [facility] ([facility]) Nucleated Red Blood Cell % 0.0 % 0-0 Normal (applies to n on-numeric results) [facility] ([facility]) Baso % 0.2 % 0.0-1.0 Normal (applies to non-numeric resul ts) [facility] ([facility]) Immature Granulocyte % 0.6 % 0-3.0 Normal (applies to non-n umeric results) [facility] ([facility]) Lymph # 0.3 10 1.5-5.0 Below low normal [facility] ( [facility]) Neutrophils # 12.6 10 1.5-8.5 Above high normal [facility] NT ([facility]) [place] # 0.7 10 0.0-0.8 Normal (applies to non-numeric resul ts) [facility] ([facility]) Eos # 0.1 10 0.0-0.5 Normal (applies to non-numeric resul ts) [facility] ([facility]) Baso # 0.0 10 0.0-0.2 Normal (applies to non-numeric resul ts) [facility] ([facility]) ID Date Data Source [id number] 09/25/2020 07:11:00 AM EST [facility] ([facility]) Name Value Range Interpretation Code Description Data Shanda rce(s) Supporting Document(s) C reactive protein [Mass/volume] in Serum or Plasma by High sensitivity method 0.70 mg/dL 0.00-0.30 Above high normal [facility] ([facility]) ID Date Data Source [id number] 09/25/2020 07:11:00 AM EST [facility] ([facility]) Name Value Range Interpretation Code Description Data Shanda rce(s) Supporting Document(s) Glucose, Fasting 98 mg/dL 70-100 Normal (applies to non-numeric results) [facility] ([facility]) Glomerular Filtration Rate Laboratory test result Normal (applies to non- numeric results) [facility] ([facility]) <content>Units are mL/min/1.73 m2</content>
<content></content>
<content>Chronic Kidney Disease Staging per NKF:</content>
<content></content>
<content>Stage I & II GFR >=60 Normal to Mildly Decreased</content>
<content>Stage III GFR 30- 59 Moderately Decreased</content>
<content>Stage IV GFR 15-29 Severely Decreased</content>
<content>Stage V GFR <15 Very Little GFR Left</content>
<content>ESRD GFR <15 on [employer]</content>
<content></content> Blood Urea Nitrogen 13 mg/dL 7-18 Normal (applies to non-nume tyra results) [facility] ([facility]) Creatinine For GFR 0.91 mg/dL 0.55-1.30 Normal (applies to non -numeric results) [facility] ([facility]) Potassium Serum 4.9 meq/L 3.5-5.1 Normal (applies to non-numeric results) [facility] ([facility]) Testing was performed on a SLIGHTLY hemo lyzed specimen. Suggest recollection of specimen for more accurate test results. Chloride Level 108 meq/L 98-107 Above high normal [facility] ([facility]) Sodium Level 141 meq/L 136-145 Normal (applies to non-numeric res ults) [facility] ([facility]) Calcium Level 8.9 mg/dL 8.8-10.2 Normal (applies to non-numeric re sults) [facility] ([facility]) Anion Gap 7 meq/L 8-16 Below low normal [facility] ( [facility]) Carbon Dioxide Level 26 meq/L 21-32 Normal (applies to non-num octavio results) [facility] ([facility]) ID Date Data Source [id number] 09/25/2020 07:11:00 AM EST [facility] ([facility]) Name Value Range Interpretation Code Description Data Shanda rce(s) Supporting Document(s) Alt/SGPT 35 U/L 12-78 Normal (applies to non-numeric resul ts) [facility] ([facility]) Ast/Sgot 65 U/L 7-37 Above high normal [facility]) Bilirubin,Direct 0.3 mg/dL 0.0-0.2 Above high normal [facility] ([facility]) Bilirubin,Total 1.4 mg/dL 0.2-1.0 Above high normal [facility] ([facility]) Alkaline Phosphatase 106 U/L 45-117 Normal (applies to non-num octavio results) [facility] ([facility]) Albumin 3.6 GM/DL 3.2-5.2 Normal (applies to non-numeric resul ts) [facility] ([facility]) Total Protein 6.6 GM/DL 6.4-8.2 Normal (applies to non-numeric re sults) [facility] ([facility]) Albumin/Globulin Ratio 1.2 1.2-2.2 Normal (applies to non-n umeric results) [facility] ([facility]) ID Date Data Source [id number] 09/25/2020 07:11:00 AM EST [facility] ([facility]) Name Value Range Interpretation Code Description Data Shanda rce(s) Supporting Document(s) Lactate [Mass/volume] in Serum or Plasma 1.8 mmol/L 0.4-2.0 Normal (applies to non-numeric results) [facility] ([facility]) Y/N query for Sepsis Lactate Rule: Y ID Date Data Source [id number] 09/11/2020 12:00:00 AM EDT [facility] Sona Dewey MD Patient Name: OSVALDO [id number] [place] Date of : 1950[place] [id number] Date of Exam: 09/11/2020PH#: Fax: [phone] EXAM: US ABDOMEN, COMPLETECLINICAL INFORMATION: Assess for cirrhosis.Comparison 11/04/2018. The prior exam showed geographic fatty infiltrationof the liver and cholelithiasis.Once again, there is cholelithiasis, status quo. The common bile ductmeasures 6 mm. Once again, there is a coarsened, geographic, andheterogeneous appearing hepatic echo pattern, status quo. No discretemasses are identified. There is no evidence of intrahepatic ductaldilatation. The pancreas is within normal limits.The spleen has a maximal dimension of 18.7 cm consistent with splenomegaly. Incidental note is made of an additional accessory spleen.The right kidney measures 9.7 x 5.5 x 5 cm and is within normal limits withan RI of .77.The left kidney measures 10.4 x 4 x 5.1 cm. The renal cortex appearsthinned. The left renal RI is .79.There is no free fluid in the abdomen.IMPRESSION:1. There is cholelithiasis which is known.2. There is an inhomogeneous, coarsened, somewhat geographic hepatic echopattern which does not appear to have changed significantly compared to theprior exam although the examinations are technically different.3. Splenomegaly.4. Other findings as described above.Accredited by the [place] [employer] in General Ultrasound.GISEL Toussaint/jmcTveena you for referring OSVALDO URBAN to our office. Electronically Signed - BEREKET MURPHY DO 09/11/20 14:35 Name Value Range Interpretation Code Description Data Shanda rce(s) Supporting Document(s) Procedure Social History No Information Vital Signs ID Date Data Source [id number] Name Value Range Interpretation Code Description Data Source(s) Oxygen saturation in Arterial blood by Pulse oximetry 97 % 97 % [facility] ([facility]) [place] body weight 115 [lb_av] 115 [lb_av] [facility] T ([facility]) Systolic blood pressure 126 mm[Hg] 126 mm[Hg] [facility] ([facility]) Diastolic blood pressure 84 mm[Hg] 84 mm[Hg] [facility] ([facility]) Body height 63.8 [in_i] 63.8 [in_i] [facility] ([facility]) 5'3.80" Body temperature 98.2 [degF] 98.2 [degF] [facility] ([facility]) Body weight 230.00 [lb_av] 230.00 [lb_av] [facility] T ([facility]) Body mass index (BMI) [Ratio] 39.7 kg/m2 39.7 k g/m2 [facility] ([facility]) Heart rate 72 /min 72 /min [facility] ([facility] Respiratory rate 18 /min 18 /min [facility] ( [facility]) Systolic blood pressure 144 mm[Hg] 144 mm[Hg] [facility] Body mass index (BMI) [Ratio] 40.8 kg/m2 40.8 k g/m2 [facility] ([facility]) Heart rate 59 /min 59 /min [facility] ([facility]) Oxygen saturation in Arterial blood by Pulse oximetry 98 % 98 % [facility] ([facility]) [place] body weight 115 [lb_av] 115 [lb_av] [facility] T ([facility]) Respiratory rate 14 /min 14 /min [facility] ( [facility]) Body temperature 97.0 [degF] 97.0 [degF] [facility] ([facility]) Diastolic blood pressure 80 mm[Hg] 80 mm[Hg] [facility] ([facility]) Body height 63.8 [in_i] 63.8 [in_i] [facility] ([facility] 5'3.80" Body weight 236.38 [lb_av] 236.38 [lb_av] [facility] T ([facility]) Systolic blood pressure 126 mm[Hg] 126 mm[Hg] M EDKIESHA ([facility]) Diastolic blood pressure 70 mm[Hg] 70 mm[Hg] [facility] ([facility]) Body weight 230.00 [lb_av] 230.00 [lb_av] [facility] T ([facility]) Respiratory rate 18 /min 18 /min [facility] ( [facility]) Body temperature 96.7 [degF] 96.7 [degF] [facility] ([facility]) Body mass index (BMI) [Ratio] 41.2 kg/m2 41.2 k g/m2 [facility] ([facility]) Heart rate 77 /min 77 /min [facility] ([facility]) Body temperature 98.2 [degF] 98.2 [degF] [facility] ([facility]) Oxygen saturation in Arterial blood by Pulse oximetry 97 % 97 % [facility] ([facility]) [place] body weight 115 [lb_av] 115 [lb_av] [facility] T ([facility]) Systolic blood pressure 130 mm[Hg] 130 mm[Hg] M [facility] ([facility]) Diastolic blood pressure 74 mm[Hg] 74 mm[Hg] [facility] ([facility]) Body height 63.8 [in_i] 63.8 [in_i] [facility] ([facility] 5'3.80" Body weight 238.38 [lb_av] 238.38 [lb_av] [facility] T ([facility]) Respiratory rate 18 /min 18 /min [facility] ( [facility]) Body temperature 98.2 [degF] 98.2 [degF] [facility] ([facility]) Oxygen saturation in Arterial blood by Pulse oximetry 95 % 95 % [facility] ([facility]) [place] body weight 115 [lb_av] 115 [lb_av] [facility] T ([facility]) Body weight 244.50 [lb_av] 244.50 [lb_av] [facility] T ([facility]) Heart rate 63 /min 63 /min [facility] ([facility]) Respiratory rate 18 /min 18 /min [facility] ( [facility]) Systolic blood pressure 132 mm[Hg] 132 mm[Hg] [facility] Diastolic blood pressure 72 mm[Hg] 72 mm[Hg] [facility] ([facility]) Body height 63.8 [in_i] 63.8 [in_i] [facility] ([facility] 5'3.80" Body mass index (BMI) [Ratio] 42.2 kg/m2 42.2 k g/m2 [facility] ([facility]) Systolic blood pressure 134 mm[Hg] 134 mm[Hg] [facility] ([facility]) Body height 63.8 [in_i] 63.8 [in_i] [facility] ([facility] 5'3.80" Body weight 245.00 [lb_av] 245.00 [lb_av] [facility] T ([facility]) Body mass index (BMI) [Ratio] 42.3 kg/m2 42.3 k g/m2 [facility] ([facility]) Heart rate 84 /min 84 /min [facility] ([facility]) Respiratory rate 18 /min 18 /min [facility] ( [facility]) Body temperature 98.5 [degF] 98.5 [degF] [facility] ([facility]) Oxygen saturation in Arterial blood by Pulse oximetry 97 % 97 % [facility] ([facility]) [place] body weight 115 [lb_av] 115 [lb_av] [facility] T ([facility]) Diastolic blood pressure 74 mm[Hg] 74 mm[Hg] YARA ([facility]) Systolic blood pressure 118 mm[Hg] 118 mm[Hg] M MAGDA ([facility]) Diastolic blood pressure 82 mm[Hg] 82 mm[Hg] [facility] ([facility]) Body height 63.8 [in_i] 63.8 [in_i] [facility] ([facility] 5'3.80" Body weight 244.00 [lb_av] 244.00 [lb_av] MEDLEANNE Higuera ([facility]) Body mass index (BMI) [Ratio] 42.1 kg/m2 42.1 k g/m2 [facility] ([facility]) Heart rate 60 /min 60 /min [facility] ([facility]) Respiratory rate 16 /min 16 /min [facility] ( [facility]) Body temperature 98.1 [degF] 98.1 [degF] [facility] ([facility]) Oxygen saturation in Arterial blood by Pulse oximetry 98 % 98 % YARA ([facility]) [place] body weight 115 [lb_av] 115 [lb_av] NILAEN T ([facility])
[2021-09-02 06:15] LABS: BASO % 0.7 % (0.0-1.0); EOS # 0.1 10^3/uL (0.0-0.5); HEMATOCRIT 40.2 % (36.0-47.0); HEMOGLOBIN 13.2 g/dl (12.0-15.5); LYMPH # 0.5 10^3/uL (1.5-5.0); LYMPH % 8.6 % (24.0-44.0); MEAN CORPUSCULAR HEMOGLOBIN 27.3 pg (27.0-33.0); MEAN CORPUSCULAR HGB CONC 32.8 g/dl (32.0-36.5); MEAN CORPUSCULAR VOLUME 83.1 fl (80.0-96.0); MONO # 0.7 10^3/uL (0.0-0.8); MONO % 11.4 % (2.0-8.0); NEUTROPHILS # 4.7 10^3/uL (1.5-8.5); RED BLOOD COUNT 4.84 10^6/uL (4.00-5.40); WHITE BLOOD COUNT 6.2 10^3/uL (4.0-10.0)
[2021-09-02] MEDS ORDERED: KETOROLAC 30 MG/ML 1ML VIAL IV ONE (06:15)
[2021-09-02 06:16] LABS: PLATELET COUNT, AUTOMATED 54 10^3/uL (150-450)
[2021-09-02 06:46] LABS: ALBUMIN 3.2 GM/DL (3.2-5.2); ALT/SGPT 25 U/L (12-78); BILIRUBIN,DIRECT 0.6 MG/DL (0.0-0.2); BILIRUBIN,TOTAL 1.7 MG/DL (0.2-1.0); BLOOD UREA NITROGEN 13 MG/DL (7-18); CALCIUM LEVEL 8.9 MG/DL (8.8-10.2); CARBON DIOXIDE LEVEL 30 MEQ/L (21-32); CHLORIDE LEVEL 103 MEQ/L (98-107); CK-MB VALUE MASS < 1.0 NG/ML (<3.6); CPK CREATINE PHOSPHOKINASE 64 U/L (26-192); CREATININE FOR GFR 0.86 MG/DL (0.55-1.30); GLOMERULAR FILTRATION RATE > 60.0 (>45); GLUCOSE, FASTING 116 MG/DL (70-100); MB/CK RELATIVE INDEX 1.56 (< OR =4); NT-PRO BNP 107 PG/ML (<125); POTASSIUM SERUM 3.8 MEQ/L (3.5-5.1); SODIUM LEVEL 138 MEQ/L (136-145); TOTAL PROTEIN 6.6 GM/DL (6.4-8.2); TROPONIN I < 0.02 NG/ML (< 0.10)
--- NOTE | 2021-09-02 07:04 | REPVR ---
PROCEDURE INFORMATION: Exam: XR Chest Exam date and time: 09/02/2021 5:55 AM Age: 71 years old Clinical indication: Cough and dyspnea; Additional info: Dyspnea/cough TECHNIQUE: Imaging protocol: XR of the chest. Views: 1 view. COMPARISON: CR CHEST 2 VIEWS 01/10/2019 10:08 AM FINDINGS: Lungs: There is a subtle right mid lung zone density measuring 5-6 mm. Pleural spaces: Unremarkable. No pleural effusion. No pneumothorax. Heart/Mediastinum: Unremarkable. No cardiomegaly. Bones/joints: Unremarkable. IMPRESSION: 1. No focal consolidation. 2. Subtle 5-6 mm right mid lung zone density. Further evaluation with CT of the chest is suggested on a nonemergent basis. Electronically signed by: Tejas Bacon On 09/02/2021 07:04:11 AM
[2021-09-02] MEDS ORDERED: ISOVUE-370 76% 100ML VIAL As Ordered ONE (07:35)
--- OUTSIDE RECORDS SUMMARY | 2021-09-02 07:40 | CCD ---
Author Author [facility] Organization [facility] Address Unknown Phone Unavailable Care Team Providers Care Radiological Technologist Name Role Phone Moorpark, Didi BOOKKEEPING ASSISTANT Unavailable Unavailable Moorpark, Didi BOOKKEEPING ASSISTANT Unavailable Unavailable Moorpark, Didi BOOKKEEPING ASSISTANT Unavailable Unavailable Moorpark, Didi BOOKKEEPING ASSISTANT Unavailable Unavailable Moorpark, Didi BOOKKEEPING ASSISTANT Unavailable Unavailable Moorpark, Didi BOOKKEEPING ASSISTANT Unavailable Unavailable Moorpark, Didi BOOKKEEPING ASSISTANT Unavailable Unavailable Moorpark, Didi BOOKKEEPING ASSISTANT Unavailable Unavailable Moorpark, Didi BOOKKEEPING ASSISTANT Unavailable Unavailable Moorpark, Didi BOOKKEEPING ASSISTANT Unavailable Unavailable Moorpark, Didi BOOKKEEPING ASSISTANT Unavailable Unavailable Moorpark, Didi BOOKKEEPING ASSISTANT Unavailable Unavailable Moorpark, Didi BOOKKEEPING ASSISTANT Unavailable Unavailable Moorpark, Didi BOOKKEEPING ASSISTANT Unavailable Unavailable Moorpark, Didi BOOKKEEPING ASSISTANT Unavailable Unavailable Moorpark, Didi BOOKKEEPING ASSISTANT Unavailable Unavailable Moorpark, Didi BOOKKEEPING ASSISTANT Unavailable Unavailable Moorpark, Didi BOOKKEEPING ASSISTANT Unavailable Unavailable Moorpark, Didi BOOKKEEPING ASSISTANT Unavailable Unavailable Moorpark, Didi BOOKKEEPING ASSISTANT Unavailable Unavailable Moorpark, Didi BOOKKEEPING ASSISTANT Unavailable Unavailable Moorpark, Didi BOOKKEEPING ASSISTANT Unavailable Unavailable Moorpark, Didi BOOKKEEPING ASSISTANT Unavailable Unavailable Moorpark, Didi BOOKKEEPING ASSISTANT Unavailable Unavailable Moorpark, Didi BOOKKEEPING ASSISTANT Unavailable Unavailable Moorpark, Didi BOOKKEEPING ASSISTANT Unavailable Unavailable Moorpark, Didi BOOKKEEPING ASSISTANT Unavailable Unavailable Moorpark, Didi BOOKKEEPING ASSISTANT Unavailable Unavailable Moorpark, Didi BOOKKEEPING ASSISTANT Unavailable Unavailable Moorpark, Didi BOOKKEEPING ASSISTANT Unavailable Unavailable Moorpark, Didi BOOKKEEPING ASSISTANT Unavailable Unavailable Moorpark, Didi BOOKKEEPING ASSISTANT Unavailable Unavailable Moorpark, Didi BOOKKEEPING ASSISTANT Unavailable Unavailable Moorpark, Didi BOOKKEEPING ASSISTANT Unavailable Unavailable Moorpark, Didi BOOKKEEPING ASSISTANT Unavailable Unavailable Moorpark, Didi BOOKKEEPING ASSISTANT Unavailable Unavailable O'lorie, A Yassine PA Unavailable [...] Yassine PA Unavailable Unavailable Lockerbie, S Sasha BOOKKEEPING ASSISTANT-C Unavailable Unavailable Lockerbie, S Sasha BOOKKEEPING ASSISTANT-C Unavailable Unavailable Lockerbie, S Sasha BOOKKEEPING ASSISTANT-C Unavailable Unavailable Lockerbie, S Sasha BOOKKEEPING ASSISTANT-C Unavailable Unavailable Lockerbie, S Sasha BOOKKEEPING ASSISTANT-C Unavailable Unavailable Lockerbie, S Sasha BOOKKEEPING ASSISTANT-C Unavailable Unavailable Lockerbie, S Sasha BOOKKEEPING ASSISTANT-C Unavailable Unavailable Lockerbie, S Sasha BOOKKEEPING ASSISTANT-C Unavailable Unavailable Lockerbie, S Sasha BOOKKEEPING ASSISTANT-C Unavailable Unavailable Lockerbie, S Sasha BOOKKEEPING ASSISTANT-C Unavailable Unavailable Lockerbie, S Sasha BOOKKEEPING ASSISTANT-C Unavailable Unavailable Lockerbie, S Sasha BOOKKEEPING ASSISTANT-C Unavailable Unavailable Lockerbie, S Sasha BOOKKEEPING ASSISTANT-C Unavailable Unavailable Lockerbie, S Sasha BOOKKEEPING ASSISTANT-C Unavailable Unavailable Lockerbie, S Sasha BOOKKEEPING ASSISTANT-C Unavailable Unavailable Lockerbie, S Sasha BOOKKEEPING ASSISTANT-C Unavailable Unavailable Lockerbie, S Sasha BOOKKEEPING ASSISTANT-C Unavailable Unavailable Lockerbie, S Sasha BOOKKEEPING ASSISTANT-C Unavailable Unavailable Lockerbie, S Sasha BOOKKEEPING ASSISTANT-C Unavailable Unavailable Lockerbie, S Sasha BOOKKEEPING ASSISTANT-C Unavailable Unavailable Lockerbie, S Sasha BOOKKEEPING ASSISTANT-C Unavailable Unavailable Lockerbie, S Sasha BOOKKEEPING ASSISTANT-C Unavailable Unavailable Lockerbie, S Sasha BOOKKEEPING ASSISTANT-C Unavailable Unavailable Lockerbie, S Sasha BOOKKEEPING ASSISTANT-C Unavailable Unavailable Re-disclosure Warning The records that [...] is protected by Article 27-F of the [facility] Public Health law. If you continue you may have access to information: Regarding HIV / AIDS; Provided by facilities licensed or operated by the [facility] Office of Mental Health; or Provided by the [facility] Office for People With Developmental Disabilities. If such information is present, then the following [facility] mandated warning applies: This information has been [...] law may result in a fine or snf sentence or both. A general authorization for the release of medical or other information is NOT sufficient authorization for further disc losure. Family History Family Member Name Family Member Gender Family Member Status Date o f Status Description Data Source(s) Unknown Male Problem [facility] ([facility]) Unknown Unknown Problem [facility] ([facility]) mgm Encounters Encounter Providers Location Date Indications Data Source(s ) Outpatient Attender: Yassine FUENTES [facility] 06/24/2021 02:30:00 PM EDT [facility] ([facility]) Outpatient Attender: Yassine FUENTES [facility] 06/13/2021 10:30:00 AM EDT [facility] ([facility]) Outpatient Attender: Carla White [facility] Main Office 05/07/2021 12:00:00 PM EDT [facility] ([facility] Outpatient Attender: Carla White [facility] Main Office 02/10/2021 11:00:00 AM EDT [facility] ([facility]) Outpatient Attender: Carla White [facility] Main Office 02/05/2021 11:00:00 AM EDT [facility] ([facility]) Outpatient Attender: Sasha Kathy [facility] Main Office 01/30/2021 10:45:00 AM EDT [facility] ([facility]) Outpatient Attender: Carla White [facility] Main Office 01/28/2021 11:00:00 AM EDT [facility] ([facility]) Outpatient Attender: Carla White [facility] Main Office 01/23/2021 10:00:00 AM EST [facility] ([facility]) Outpatient Attender: Carla White [facility] Main Office 01/21/2021 10:00:00 AM EST [facility] ([facility]) Outpatient Attender: Carla White [facility] Main Office 01/16/2021 10:00:00 AM EST [facility] ([facility]) Outpatient Attender: Yassine FUENTES [facility] 01/15/2021 09:30:00 AM EST [facility] ([facility]) Outpatient Attender: Carla White [facility] Main Office 01/14/2021 10:00:00 AM EST [facility] ([facility]) Outpatient Attender: Carla White [facility] Main Office 01/09/2021 10:00:00 AM EST [facility] ([facility]) Outpatient Attender: Carla White [facility] Main Office 01/07/2021 10:00:00 AM EST [facility] ([facility]) Outpatient Attender: Carla White [facility] Main Office 01/02/2021 10:00:00 AM EST [facility] ([facility]) Outpatient Attender: Carla White [facility] Main Office 12/25/2020 09:45:00 AM EST [facility] ([facility]) Outpatient Attender: Carla White [facility] Main Office 12/23/2020 09:45:00 AM EST [facility] ([facility]) Outpatient Attender: Carla White [facility] Main Office 12/11/2020 09:45:00 AM EST [facility] ([facility]) Outpatient Attender: Carla White [facility] Main Office 12/10/2020 09:30:00 AM EST [facility] ([facility]) Outpatient Attender: Carla White [facility] Main Office 12/09/2020 09:30:00 AM EST [facility] ([facility]) Outpatient Attender: Sashaonur Chavez [facility] Main Office 12/03/2020 10:00:00 AM EST [facility] Outpatient Attender: Yassine FUENTES [facility] 10/16/2020 08:40:00 AM EST [facility] ([facility]) Outpatient Attender: Yassine FUENTES [facility] 10/08/2020 09:20:00 AM EST [facility] ([facility]) Outpatient Attender: Yassine FUENTES [facility] 09/30/2020 10:30:00 AM EST [facility] ([facility]) Immunizations Vaccine Date Status Description Data Source(s) COVID-19 VACCINE [facility] 02/17/2021 12:00:00 AM EDT completed NYSIIS Vaccine Series Complete: YESThis Data wa s Submitted to [facility] Via [facility]. Medications Medication Brand Name Start Date Product [...] 06/24/2021 12:00:00 AM EDT ORAL active [facility] ([facility]) Injection Ceftriaxone Sodium Per 250 MG (Rocephin) 06/24/2021 12:00:00 AM EDT completed [facility] ([facility]) Medication administered onsite Injection Ceftriaxone Sodium Per 250 MG (Rocephin) 06/24/2021 12:00:00 AM EDT completed [facility] ([facility]) Medication administered onsite Furosemide 20 MG Oral Tablet Furosemide 06/13/2021 12:00:00 AM EDT ORAL active [facility] ([facility]) Blood Pressure Monitor Automatic/Arm/X-Large Cuff 06/13/2021 12:00:00 AM EDT active [facility] ( [facility]) 20 mg 05/13/2021 12:00:00 AM EDT tablet [...] Mupirocin 10/08/2020 12:00:00 AM EST completed [facility] ([facility]) Sulfamethoxazole 800 MG / Trimethoprim 160 MG Oral Tablet [B actrim] Bactrim DS 10/08/2020 12:00:00 AM EST ORAL completed [facility] ([facility]) Injection Ceftriaxone Sodium Per 250 MG (Rocephin) 10/08/2020 12:00:00 AM EST completed [facility] ([facility]) Medication administered onsite 2 % 10/08/2020 12:00:00 AM EST ointment 22 APPLY 1 GRAM OF OINTMENT AROUND RIGHT FOOT AREA TWO TIMES A DAY APPLY 1 GRAM OF OINTMENT AROUND RIGHT FO OT AREA TWO TIMES A DAY SOLD: 10/08/2020 [facility] pantoprazole 20 MG Delayed Release Oral Tablet Pantoprazole Sodium 10/04/2020 12:00:00 AM EST active M EDENT ([facility]) 300 mg 09/25/2020 12:00:00 AM EST capsule 30 TAKE ONE CAPSULE BY MOUTH THREE TIMES A DAY TAKE ONE CAPSULE BY MOUTH THREE TIMES A DAY SOLD: 09/25/2020 [facility] Insurance Providers Payer name Policy type / Coverage type Policy ID Covered constitution party ID Covered constitution party's relationship to elmore Policy [place] Plan Information [facility] [employer] Commercial [id number] Self [id number] [facility] [employer] Commercial [id number] Self [facility] [id number] Tonya [id number] Medicare Part B [facility] [id number] 0 [id number] Medicare Part B [facility] [id number] [facility] [id number] 0 [id number] [place] Primary [id number] Self [id number] Medicare Natl Govt Servic Medicare Primary [id number] Self [id number] Medicare [place] Medicare Primary [id number] Self [id number] Medicare Natl Govt Servic Medicare Primary [id number] Self [id number] [facility] [id number] Commercial Insurance [id number] Medicare [id number] Medicare [id number] [facility] Commercial [id number] Self [id number] Medicare Natl Gov't Servi Medicare Primary [id number] Self [id number] MEDICARE C [id number] S [id number] D [facility] Commercial [id number] Self [id number] Medicare Natl Gov't Servi Medicare Primary [id number] Self [id number] Medicare Natl Govt Servic Medicare Primary [id number] Self [id number] [facility] HEALTH CARE [id number] SP [id number] Medicare Natl Govt Servic Medicare Primary [id number] Self [id number] [facility] C [id number] S [id number] MEDICARE [id number] SP [id number] D MEDICARE C [id number] S [id number] A [facility] C [id number] S [id number] MEDICARE [id number] SP [id number] A [facility] Commercial [id number] Self [id number] Medicare Natl Gov't Servi Medicare Primary [id number] Self [id number] Medicare Natl Govt Servic Medicare Primary [id number] Self [id number] Medicare Natl Govt Servic Medicare Primary [id number] Self [id number] [facility] Commercial [id number] Self [id number] [facility] (HMO/PPO) HEALTH CARE [id number] 0 [id number] [facility] Commercial [id number] Self [facility] [id number] SP [id number] [facility] HEALTH CARE [id number] SP [id number] MEDICARE [id number] SP [id number] MEDICARE C [id number] S [id number] [facility] HEALTH CARE O [id number] S [id number] Medicare [place] Medicare Primary [id number] Self [id number] [facility] Commercial [id number] Self [id number] Problems, Conditions, and Diagnoses Code Display Name Description Problem Type Effective Dates Data Source(s) I10 Essential hypertension Essential hypertension Problem 06/13/2021 12:00:00 AM EDT [facility] ([facility]) L40.9 Psoriasis Psoriasis Problem 01/15/2021 12:00:00 AM ES T [facility] ([facility]) Surgeries/Procedures Procedure Description Date Indications Data Source(s) OFFICE OUTPATIENT VISIT 15 MINUTES 06/24/2021 12:00:00 AM EDT [facility] ([facility]) OFFICE OUTPATIENT VISIT 25 MINUTES 06/13/2021 12:00:00 AM EDT [facility] ([facility]) OFFICE OUTPATIENT VISIT 15 MINUTES 05/07/2021 12:00:00 AM EDT [facility] ([facility]) OFFICE OUTPATIENT VISIT 15 MINUTES 02/10/2021 12:00:00 AM EDT [facility] ([facility]) PHOTOCHEMOTX TAR&UVB/PETROLATUM/UVB 02/05/2021 12:00:0 0 AM EDT [facility] ([facility]) OFFICE OUTPATIENT VISIT 15 MINUTES 02/05/2021 12:00:00 AM EDT [facility] ([facility]) PHOTOCHEMOTX TAR&UVB/PETROLATUM/UVB 01/30/2021 12:00:0 0 AM EDT [facility] ([facility]) OFFICE OUTPATIENT VISIT 15 MINUTES 01/30/2021 12:00:00 AM EDT [facility] ([facility]) PHOTOCHEMOTX TAR&UVB/PETROLATUM/UVB 01/28/2021 12:00:0 0 AM EDT [facility] ([facility]) OFFICE OUTPATIENT VISIT 15 MINUTES 01/28/2021 12:00:00 AM EDT [facility] ([facility]) PHOTOCHEMOTX TAR&UVB/PETROLATUM/UVB 01/23/2021 12:00:0 0 AM EST [facility] ([facility]) OFFICE OUTPATIENT VISIT 15 MINUTES 01/23/2021 12:00:00 AM EST [facility] ([facility]) PHOTOCHEMOTX TAR&UVB/PETROLATUM/UVB 01/21/2021 12:00:0 0 AM EST [facility] ([facility]) OFFICE OUTPATIENT VISIT 15 MINUTES 01/21/2021 12:00:00 AM EST [facility] ([facility]) PHOTOCHEMOTX TAR&UVB/PETROLATUM/UVB 01/16/2021 12:00:0 0 AM EST [facility] ([facility]) OFFICE OUTPATIENT VISIT 15 MINUTES 01/16/2021 12:00:00 AM EST [facility] ([facility]) OFFICE OUTPATIENT VISIT 25 MINUTES 01/15/2021 12:00:00 AM EST [facility] ([facility]) PHOTOCHEMOTX TAR&UVB/PETROLATUM/UVB 01/14/2021 12:00:0 0 AM EST [facility] ([facility]) OFFICE OUTPATIENT VISIT 15 MINUTES 01/14/2021 12:00:00 AM EST [facility] ([facility]) PHOTOCHEMOTX TAR&UVB/PETROLATUM/UVB 01/09/2021 12:00:0 0 AM EST [facility] ([facility]) OFFICE OUTPATIENT VISIT 15 MINUTES 01/09/2021 12:00:00 AM EST [facility] ([facility]) PHOTOCHEMOTX TAR&UVB/PETROLATUM/UVB 01/07/2021 12:00:0 0 AM EST [facility] ([facility]) OFFICE OUTPATIENT VISIT 15 MINUTES 01/07/2021 12:00:00 AM EST [facility] ([facility]) PHOTOCHEMOTX TAR&UVB/PETROLATUM/UVB 01/02/2021 12:00:0 0 AM EST [facility] ([facility]) OFFICE OUTPATIENT VISIT 15 MINUTES 01/02/2021 12:00:00 AM EST [facility] ([facility]) PHOTOCHEMOTX TAR&UVB/PETROLATUM/UVB 12/25/2020 12:00:0 0 AM EST [facility] ([facility]) OFFICE OUTPATIENT VISIT 15 MINUTES 12/25/2020 12:00:00 AM EST [facility] ([facility]) PHOTOCHEMOTX TAR&UVB/PETROLATUM/UVB 12/23/2020 12:00:0 0 AM EST [facility] ([facility]) OFFICE OUTPATIENT VISIT 15 MINUTES 12/23/2020 12:00:00 AM EST [facility] ([facility]) PHOTOCHEMOTX TAR&UVB/PETROLATUM/UVB 12/11/2020 12:00:0 0 AM EST [facility] ([facility]) OFFICE OUTPATIENT VISIT 15 MINUTES 12/11/2020 12:00:00 AM EST [facility] ([facility]) PHOTOCHEMOTX TAR&UVB/PETROLATUM/UVB 12/10/2020 12:00:0 0 AM EST [facility] ([facility]) OFFICE OUTPATIENT VISIT 15 MINUTES 12/10/2020 12:00:00 AM EST [facility] ([facility]) PHOTOCHEMOTX TAR&UVB/PETROLATUM/UVB 12/09/2020 12:00:0 0 AM EST [facility] ([facility]) OFFICE OUTPATIENT VISIT 15 MINUTES 12/09/2020 12:00:00 AM EST [facility] ([facility]) OFFICE OUTPATIENT NEW 45 MINUTES 12/03/2020 12:00:00 A M EST [facility] ([facility]) Results ID Date Data Source [id number] 09/25/2020 07:11:00 AM EST [facility] ([facility]) Name Value Range Interpretation Code Description Data Shanda rce(s) Supporting Document(s) Erythrocyte sedimentation rate by Westergren method 9 mm/hr 0-30 Normal (applies to non-numeric results) [facility] ([facility]) Platelets reticulated/100 platelets in Blood by Automated count 3.3 % 0.0-9.59 Normal (applies to non-numeric results) [facility] ([facility]) ID Date Data Source [id number] 09/25/2020 07:11:00 AM EST [facility] ([facility]) Name Value Range Interpretation Code Description Data Shanda rce(s) Supporting Document(s) Red Blood Count 4.71 10 4.00-5.40 Normal (applies to non-numeric results) [facility] ([facility]) White Blood Count 13.7 10 4.0-10.0 Above high normal [facility] ([facility]) Hemoglobin 13.0 g/dL 12.0-15.5 Normal (applies to non-numeric resul ts) [facility] ([facility]) Mean Corpuscular Volume 87.0 fl 80.0-96.0 Normal ( applies to non-numeric results) [facility] ([facility]) Hematocrit 41.0 % 36.0-47.0 Normal (applies to non-numeric resul ts) [facility] ([facility]) Mean Corpuscular Hemoglobin 27.6 pg 27.0-33.0 Norm al (applies to non-numeric results) [facility] ([facility]) Platelet Count, Automated 57 10 150-450 Below low normal [facility] ([facility]) Red Cell Distribution Width 14.8 % 11.5-14.5 Above high normal [facility] ([facility]) Mean Corpuscular HGB Conc 31.7 g/dL 32.0-36.5 Below low normal [facility] ([facility]) Neutrophils % 92.0 % 36.0-66.0 Above high normal [facility] ([facility]) Eos % 0.4 % 0.0-3.0 Normal (applies to non-numeric resul ts) [facility] ([facility]) Lymph % 1.8 % 24.0-44.0 Below low normal [facility] ( [facility]) Emanuel % 5.0 % 0.0-5.0 Normal (applies to non-numeric resul ts) [facility] ([facility]) Nucleated Red Blood Cell % 0.0 % 0-0 Normal (applies to n on-numeric results) [facility] ([facility]) Baso % 0.2 % 0.0-1.0 Normal (applies to non-numeric resul ts) [facility] ([facility]) Immature Granulocyte % 0.6 % 0-3.0 Normal (applies to non-n umeric results) [facility] ([facility]) Lymph # 0.3 10 1.5-5.0 Below low normal [facility] ( [facility]) Neutrophils # 12.6 10 1.5-8.5 Above high normal [facility] ([facility]) Emanuel # 0.7 10 0.0-0.8 Normal (applies to non-numeric resul ts) [facility] ([facility]) Eos # 0.1 10 0.0-0.5 Normal (applies to non-numeric resul ts) [facility] ([facility]) Baso # 0.0 10 0.0-0.2 Normal (applies to non-numeric resul ts) [facility] ([facility]) ID Date Data Source [id number] 09/25/2020 07:11:00 AM EST [facility] ([facility]) Name Value Range Interpretation Code Description Data Shanda rce(s) Supporting Document(s) C reactive protein [Mass/volume] in Serum or Plasma by High sensitivity method 0.70 mg/dL 0.00-0.30 Above high normal [facility] ([facility]) ID Date Data Source [id number] 09/25/2020 07:11:00 AM EST [facility] ([facility]) Name Value Range Interpretation Code Description Data Shanda rce(s) Supporting Document(s) Glucose, Fasting 98 mg/dL 70-100 Normal (applies to non-numeric results) [facility] ([facility]) Glomerular Filtration Rate Laboratory test result Normal (applies to non- numeric results) [facility] ([facility]) <content>Units are mL/min/1.73 m2</content>
<content></content>
<content>Chronic Kidney Disease Staging per NKF:</content>
<content></content>
<content>Stage I & II GFR >=60 Normal to Mildly Decreased</content>
<content>Stage III GFR 30- 59 Moderately Decreased</content>
<content>Stage IV GFR 15-29 Severely Decreased</content>
<content>Stage V GFR <15 Very Little GFR Left</content>
<content>ESRD GFR <15 on METAL DIE FINISHER</content>
<content></content> Blood Urea Nitrogen 13 mg/dL 7-18 Normal (applies to non-nume tyra results) [facility] ([facility]) Creatinine For GFR 0.91 mg/dL 0.55-1.30 Normal (applies to non -numeric results) [facility] ([facility]) Potassium Serum 4.9 meq/L 3.5-5.1 Normal (applies to non-numeric results) [facility] ([facility]) Testing was performed on a SLIGHTLY hemo lyzed specimen. Suggest recollection of specimen for more accurate test results. Chloride Level 108 meq/L 98-107 Above high normal [facility] ([facility]) Sodium Level 141 meq/L 136-145 Normal (applies to non-numeric res ults) [facility] ([facility]) Calcium Level 8.9 mg/dL 8.8-10.2 Normal (applies to non-numeric re sults) [facility] Anion Gap 7 meq/L 8-16 Below low normal [facility] Carbon Dioxide Level 26 meq/L 21-32 Normal (applies to non-num octavio results) [facility] ([facility]) ID Date Data Source [id number] 09/25/2020 07:11:00 AM EST [facility] ([facility]) Name Value Range Interpretation Code Description Data Shanda rce(s) Supporting Document(s) Alt/SGPT 35 U/L 12-78 Normal (applies to non-numeric resul ts) [facility]) Ast/Sgot 65 U/L 7-37 Above high normal [facility] Bilirubin,Direct 0.3 mg/dL 0.0-0.2 Above high normal [facility] ([facility]) Bilirubin,Total 1.4 mg/dL 0.2-1.0 Above high normal [facility] ([facility]) Alkaline Phosphatase 106 U/L 45-117 Normal (applies to non-num octavio results) [facility] ([facility]) Albumin 3.6 GM/DL 3.2-5.2 Normal (applies to non-numeric resul ts) [facility] ([facility]) Total Protein 6.6 GM/DL 6.4-8.2 Normal (applies to non-numeric re sults) [facility] ([facility]) Albumin/Globulin Ratio 1.2 1.2-2.2 Normal (applies to non-n umeric results) [facility] ([facility]) ID Date Data Source [id number] 09/25/2020 07:11:00 AM EST [facility] ([facility]) Name Value Range Interpretation Code Description Data Shanda rce(s) Supporting Document(s) Lactate [Mass/volume] in Serum or Plasma 1.8 mmol/L 0.4-2.0 Normal (applies to non-numeric results) [facility] ([facility]) Y/N query for Sepsis Lactate Rule: Y ID Date Data Source [id number] 09/11/2020 12:00:00 AM EDT [facility] Sona Dewey MD Patient Name: OSVALDO URBAN[address] [place] Date of : 1950[place] [id number] Date of Exam: 09/11/2020PH#: Fax: [phone] EXAM: [...] Other findings as described above.Accredited by the [employer] in General Ultrasound.GISEL Toussaint/jmcTveena [...] by Pulse oximetry 97 % 97 % [facility]) Shelby body weight 115 [lb_av] 115 [lb_av] [facility] ([facility]) Systolic blood pressure 126 mm[Hg] 126 mm[Hg] [facility] ([facility]) Diastolic blood pressure 84 mm[Hg] 84 mm[Hg] [facility] ([facility]) Body height 63.8 [in_i] 63.8 [in_i] [facility] ([facility]) 5'3.80" Body temperature 98.2 [degF] 98.2 [degF] [facility] ([facility]) Body weight 230.00 [lb_av] 230.00 [lb_av] [facility] ([facility]) Body mass index (BMI) [Ratio] 39.7 kg/m2 39.7 k g/m2 [facility] ([facility]) Heart rate 72 /min 72 /min [facility] ([facility]) Respiratory rate 18 /min 18 /min [facility] ( [facility]) Body mass index (BMI) [Ratio] 40.8 kg/m2 40.8 k g/m2 [facility] ([facility]) Heart rate 59 /min 59 /min [facility] ([facility]) Systolic blood pressure 144 mm[Hg] 144 mm[Hg] [facility] ([facility]) Oxygen saturation in Arterial blood by Pulse oximetry 98 % 98 % [facility]) Respiratory rate 14 /min 14 /min [facility] ( [facility]) Shelby body weight 115 [lb_av] 115 [lb_av] [facility] T ([facility]) Diastolic blood pressure 80 mm[Hg] 80 mm[Hg] [facility] ([facility]) Body height 63.8 [in_i] 63.8 [in_i] [facility] ([facility]) 5'3.80" Body weight 236.38 [lb_av] 236.38 [lb_av] [facility] ([facility]) Body temperature 97.0 [degF] 97.0 [degF] [facility] ([facility]) Systolic blood pressure 126 mm[Hg] 126 mm[Hg] [facility] Diastolic blood pressure 70 mm[Hg] 70 mm[Hg] [facility] ([facility]) Body weight 230.00 [lb_av] 230.00 [lb_av] [facility] T ([facility]) Respiratory rate 18 /min 18 /min [facility] ( [facility]) Body temperature 96.7 [degF] 96.7 [degF] [facility] ([facility]) Body mass index (BMI) [Ratio] 41.2 kg/m2 41.2 k g/m2 [facility] ([facility]) Heart rate 77 /min 77 /min [facility] ([facility]) Body temperature 98.2 [degF] 98.2 [degF] [facility] ([facility]) Systolic blood pressure 130 mm[Hg] 130 mm[Hg] [facility] ([facility]) Diastolic blood pressure 74 mm[Hg] 74 mm[Hg] [facility] ([facility]) Body height 63.8 [in_i] 63.8 [in_i] [facility] ([facility]) 5'3.80" Body weight 238.38 [lb_av] 238.38 [lb_av] [facility] ([facility]) Oxygen saturation in Arterial blood by Pulse oximetry 97 % 97 % [facility]) Shelby body weight 115 [lb_av] 115 [lb_av] [facility] ([facility]) Respiratory rate 18 /min 18 /min [facility] ( [facility]) Respiratory rate 18 /min 18 /min [facility] ( [facility]) Body temperature 98.2 [degF] 98.2 [degF] [facility] ([facility]) Oxygen saturation in Arterial blood by Pulse oximetry 95 % 95 % [facility] ([facility]) [place] body weight 115 [lb_av] 115 [lb_av] [facility] ([facility]) Systolic blood pressure 132 mm[Hg] 132 mm[Hg] [facility] ([facility]) Diastolic blood pressure 72 mm[Hg] 72 mm[Hg] [facility] ([facility]) Body height 63.8 [in_i] 63.8 [in_i] [facility] 5'3.80" Body weight 244.50 [lb_av] 244.50 [lb_av] [facility] ([facility]) Body mass index (BMI) [Ratio] 42.2 kg/m2 42.2 k g/m2 [facility] ([facility]) Heart rate 63 /min 63 /min [facility] ([facility]) Body height 63.8 [in_i] 63.8 [in_i] [facility] ([facility]) 5'3.80" Body weight 245.00 [lb_av] 245.00 [lb_av] [facility] ([facility]) Body mass index (BMI) [Ratio] 42.3 kg/m2 42.3 k g/m2 [facility] ([facility]) Heart rate 84 /min 84 /min [facility] ([facility]) Respiratory rate 18 /min 18 /min [facility] ( [facility]) Body temperature 98.5 [degF] 98.5 [degF] [facility] ([facility]) Oxygen saturation in Arterial blood by Pulse oximetry 97 % 97 % [facility] ([facility]) Shelby body weight 115 [lb_av] 115 [lb_av] [facility] ([facility]) Systolic blood pressure 134 mm[Hg] 134 mm[Hg] [facility] ([facility]) Diastolic blood pressure 74 mm[Hg] 74 mm[Hg] YARA ([facility]) Systolic blood pressure 118 mm[Hg] 118 mm[Hg] M MAGDA ([facility]) Diastolic blood pressure 82 mm[Hg] 82 mm[Hg] [facility] ([facility]) Body height 63.8 [in_i] 63.8 [in_i] [facility] ([facility]) 5'3.80" Body weight 244.00 [lb_av] 244.00 [lb_av] REDD Higuera ([facility]) Body mass index (BMI) [Ratio] 42.1 kg/m2 42.1 k g/m2 [facility] ([facility]) Heart rate 60 /min 60 /min [facility] ([facility]) Respiratory rate 16 /min 16 /min [facility] ( [facility]) Body temperature 98.1 [degF] 98.1 [degF] [facility] ([facility]) Oxygen saturation in Arterial blood by Pulse oximetry 98 % 98 % [facility] ([facility]) Shelby body weight 115 [lb_av] 115 [lb_av] NILAEN T ([facility])
--- NOTE | 2021-09-02 10:05 | REP ---
INDICATION: pleuritic CP. COMPARISON: CT chest 12/24/2018. CT abdomen 06/07/2019. TECHNIQUE: CT angiogram chest performed following the intravenous administration of 100 cc of Isovue 370. Sagittal and coronal reconstruction images are performed. FINDINGS: The exam was performed prior to 8 a.m. and should have been sent to virtual Radiology for interpretation, but was not for reasons unknown to me. Lungs: There is a stable 4 mm nodule in the right lower lobe on image 42. There is a 3 mm nodule in the left posterior costophrenic sulcus on image 68. Mediastinum: No adenopathy. Pulmonary arteries: No evidence of pulmonary embolism. Sonia: No adenopathy. Axilla: No adenopathy. Pleura: Loculated pleural fluid in the right posterior costophrenic sulcus has increased since 06/07/2019. Heart: Not enlarged. Thoracic aorta: No aneurysm or dissection. Upper abdominal structures: The liver has a cirrhotic appearance. There is dilatation of the splenic vein, superior mesenteric vein and portal vein compatible with portal hypertension. Multiple gallstones are seen in a mildly distended gallbladder. There is minimal perihepatic fluid. Spleen is markedly enlarged. There is diffuse dilatation of the pancreatic duct up to approximately 10 mm. There is abrupt occlusion of the pancreatic duct in the pancreatic head where there appears to be a heterogeneous mass approximately 2 cm in diameter. A soft tissue nodule at the medial margin of the uncinate process may represent an enlarged lymph node 2.1 x 1.7 cm.. Visualized osseous structures: There are diffuse degenerative changes of the spine. IMPRESSION: No CT evidence of pulmonary embolism. No infiltrate seen. Loculated pleural fluid in the posterior right costophrenic sulcus has increased since the prior CT of the abdomen 06/07/2019. Diffuse dilatation of pancreatic duct. I suspect a pancreatic head mass approximately 2 cm in diameter. A soft tissue nodule along the medial aspect of the uncinate process of the pancreas may represent adenopathy 2.1 x 1.7 cm. Multiple gallstones in a mildly distended gallbladder. There are findings of a cirrhotic liver with portal hypertension and splenomegaly. There is minimal perihepatic fluid. <Electronically signed by Larry Moyer > 09/02/21 1001
[2021-09-02 11:15] VITALS: BP 161/80
--- NOTE | 2021-09-03 13:25 | ECGEPIP ---
[facility] - ED Test Date: 2021-09-02 Pat Name: OSVALDO URBAN Department: Room: - Gender: Female Director Of Strategic Partnerships: ED : 1950 Requested By: ROBERT Valencia Order Number: [id number] Reading MD: Bonny Pitts Measurements Intervals [place] Rate: 67 P: 25 SC: 154 QRS: -5 QRSD: 92 T: 24 QT: 390 QTc: 412 Interpretive Statements Normal sinus rhythm prwp similar 12/23/18 Electronically Signed on 09-03-2021 13:24:52 EDT by Bonny Pitts
== END 2021-09-02 11:18 | disposition home or self-care (01) ==
LOC: M ED 00:26
DX: J90 Pleural effusion, not elsewhere classified (principal); K74.60 Unspecified cirrhosis of liver; I10 Essential (primary) hypertension; Z88.8 Allergy status to other drugs, medicaments and biological substances; Z79.899 Other long term (current) drug therapy
CPT/HCPCS: 71045; 71275; 80048; 80076; 82550; 82553; 83605; 83880; 84484; 85025; 85049; 85055; 93005; 93041; 94760; 96374; 99285; J1885; Q9967

== ENCOUNTER → 2021-09-08 | Outpatient (CLI) | payer MEDICARE, OTHER ==
[~2021-09-08] MED LIST changes: +PROHANCE 279.3MG/ML 15ML VIAL As Ordered ONE; +PROHANCE 279.3MG/ML 5ML VIAL As Ordered ONE
--- NOTE | 2021-09-08 14:20 | REP ---
INDICATION: PANCREATIC MASS W/ ABN IMAG- LABS FIRST. COMPARISON: CT angiogram chest 09/02/2021. TECHNIQUE: Multiple sequences obtained in the axial coronal planes prior to and following the intravenous administration of 19 mL ProHance. FINDINGS: Loculated pleural fluid on the right is again noted. There is mild perihepatic fluid. The liver has a cirrhotic appearance. No liver mass is seen. The spleen is again noted to be enlarged measuring approximately 20 cm in length. There is again dilatation of the portal venous system and splenic vein compatible with portal hypertension. Multiple gallstones are seen in the gallbladder. There is no intrahepatic or extrahepatic biliary dilatation. No adrenal or renal mass is seen. There is no hydronephrosis. There is an oval pancreatic head mass which measures approximately 3.0 x 1.7 cm. A subcentimeter cystic component is seen along its superior aspect. The mass causes obstruction of the pancreatic duct, which is dilated up to approximately 12 mm. Inferiorly in the pancreatic head there is a 1.2 cm cyst and medial to this there is a 9 mm cyst. These show no enhancement. At the medial margin of the uncinate process there is again a soft tissue mass noted, measuring approximately 2.9 cm in diameter. There is adjacent ill-defined soft tissue surrounding the celiac axis and superior mesenteric artery which may represent ill-defined tumor infiltration. The abdominal aorta is normal in caliber. There are subcentimeter periaortic lymph nodes more inferiorly. IMPRESSION: There are findings of cirrhosis, splenomegaly and portal hypertension. Multiple gallstones in the gallbladder. No biliary dilatation. There is no pancreatic head mass 3.0 x 1.7 cm causing obstruction of the pancreatic duct which is dilated up to 12 mm. At the medial margin of the uncinate process a soft tissue mass measures 2.9 cm in maximum diameter with adjacent ill-defined soft tissue surrounding the celiac axis and superior mesenteric artery. This is suspicious for adjacent tumor infiltration. <Electronically signed by Larry Moyer > 09/08/21 [id number]
== END ==
LOC: M RAD 10:00
PROVIDERS: ATTEND Physician Assistant
DX: K74.60 Unspecified cirrhosis of liver (principal); K80.20 Calculus of gallbladder without cholecystitis without obstruction
CPT/HCPCS: 74183; A9576

== ENCOUNTER → 2021-11-27 | Outpatient (CLI) | payer MEDICARE, OTHER ==
[~2021-11-27] MED LIST changes: +ACET325C5 PO; -CEFD1CAP8 PO; +CEFD300C41 PO; +CREO3600 PO; +CYPR4TAB41 PO; +GASTROGRAFIN SOLUTION 30ML (Q9963) As Ordered ONE; +ISOVUE-370 76% 100ML VIAL As Ordered ONE; +LOSA100T45 PO; -LOSA100T50 PO; +LOSA25TA13 PO; -LOSA25TA14 PO; +ONDA-83 PO; +OXYC-517 PO; +PROC10TA5 PO; -PROHANCE 279.3MG/ML 15ML VIAL As Ordered ONE; -PROHANCE 279.3MG/ML 5ML VIAL As Ordered ONE
== END ==
LOC: M RAD 09:52
PROVIDERS: ATTEND Internal Medicine Medical Oncology
DX: C25.9 Malignant neoplasm of pancreas, unspecified (principal)

== ENCOUNTER → 2021-12-09 | Outpatient (POV) | payer MEDICARE, OTHER ==
[~2021-12-09] MED LIST changes: -GASTROGRAFIN SOLUTION 30ML (Q9963) As Ordered ONE; -ISOVUE-370 76% 100ML VIAL As Ordered ONE
== END ==
LOC: M IRPOV 08:28
PROVIDERS: ATTEND Radiology Diagnostic Radiology
DX: Z45.2 Encounter for adjustment and management of vascular access device (principal)